=== PATIENT | male | born 1940 | race Caucasian/White ===

== ENCOUNTER 2016-10-14 11:08 | Emergency (ER) | payer OTHER ==
[2016-10-14 11:18] VITALS: TEMP 97.6; BMI 28.1
--- NOTE | 2016-10-14 11:52 | PDOC ---
History of Present Illness <Josiah Ortiz - Last Filed: 10/14/16 14:43> - General History Source: Patient Exam Limitations: No Limitations - History of Present Illness Initial Comments: 10/14/16 12:30 The patient is a 76 year old, Kazakh speaking, male with a significant past medical history of hypertension, chronic AFib, pacemaker, [place], CVA x2 (most recently 2013), Hep C w/ cirrhosis, and thrombocytopenia, presenting to the Emergency Department with neck pain for 3 days. The patient describes his neck pain as radiating to his shoulders, back, and around his neck. He admits to taking tylenol for the pain with little relief. The patient denies any change in activity, heavy lifting, or work such as yard work. The patient denies any bad sleeping positions. The patient denies lower back pain. Patient denies headache, or dizziness. Patient denies nausea, vomiting, and diarrhea. Patient denies cough, fever, and chills. PCP: Dr. Demi Chu Past Medical Hx: colon cancer, history of intracranial bleed and GI bleed Surgical Hx: colon resection <Gloria Chacko - Last Filed: 10/14/16 16:49> - General Chief Complaint: Pain Stated Complaint: NECK PAIN Time Seen by Provider: 10/14/16 11:51 Past History - Past Medical History Anemia: No Asthma: No Cancer: Yes (Colon, colon resection) Cardiac Disorders: Yes (AK, PPM, cad) CVA: Yes (x2 last one 2013) COPD: No HTN: Yes Liver Disease: Yes (HEP C, CIRRHOSIS) - Surgical History Abdominal Surgery: Yes (mass removed 1995 abdomen,colon) Cardiac Surgery: Yes (pacemaker) - Psycho/Social/Smoking Cessation Hx Anxiety: No Suicidal Ideation: No Smoking History: Never smoked Have you smoked in the past 12 months: No Information on smoking cessation initiated: No Hx Alcohol Use: No Drug/Substance Use Hx: No Substance Use Type: None Hx Substance Use Treatment: No <Josiah Ortiz - Last Filed: 10/14/16 14:43> <Gloria Chacko - Last Filed: 10/14/16 16:49> - Past Medical History Allergies/Adverse Reactions: Allergies Allergy/AdvReac Type Severity Reaction Status Date / Time No Known Allergies Allergy Verified 10/14/16 11:10 Home Medications: Ambulatory Orders Ferrous Sulfate [Ferosul] 325 mg PO DAILY 09/05/15 Losartan Potassium 25 mg PO DAILY 09/05/15 Quetiapine Fumarate [Seroquel -] 25 mg PO HS 09/05/15 Atorvastatin Ca [Lipitor] 20 mg PO HS #0 06/23/16 Isosorbide Mononitrate [Imdur -] 30 mg PO DAILY #30 tab.sr.24h 06/23/16 Metoprolol Succinate [Toprol XL -] 100 mg PO DAILY #30 tab.sr.24h 06/23/16 Cyclobenzaprine HCl [Flexeril 10 mg] 10 mg PO TID PRN #30 tablet 10/14/16 Furosemide 20 mg PO DAILY 10/14/16 Tramadol HCl [Ultram] 50 mg PO Q6H #40 tablet MDD 4 10/14/16 Review of Systems - Review of Systems Able to Perform ROS?: Yes Comments:: 10/14/16 12:30 GENERAL/CONSTITUTIONAL: No fever or chills. No weakness. HEAD, EYES, EARS, NOSE AND THROAT: No change in vision. No ear pain or discharge. No sore throat. CARDIOVASCULAR: No chest pain or shortness of breath. RESPIRATORY: No cough, wheezing, or hemoptysis. GASTROINTESTINAL: No nausea, vomiting, diarrhea or constipation. GENITOURINARY: No dysuria, frequency, or change in urination. MUSCULOSKELETAL: + neck pain radiating to shoulders and back. No joint swelling. No back pain. SKIN: No rash NEUROLOGIC: No headache, vertigo, loss of consciousness, or change in strength/ sensation. ENDOCRINE: No increased thirst. No abnormal weight change. HEMATOLOGIC/LYMPHATIC: No anemia, easy bleeding, or history of blood clots. ALLERGIC/IMMUNOLOGIC: No hives or skin allergy. <Gloria Chacko - Last Filed: 10/14/16 16:49> *Physical Exam - Vital Signs Last Vital Signs Temp Pulse Resp BP Pulse Ox 97.6 F 60 18 135/74 100 10/14/16 11:10 10/14/16 11:10 10/14/16 11:10 10/14/16 11:10 10/14/16 11:10 <Josiah Ortiz - Last Filed: 10/14/16 14:43> - Vital Signs Last Vital Signs Temp Pulse Resp BP Pulse Ox 97.6 F 60 18 135/74 100 10/14/16 11:10 10/14/16 11:10 10/14/16 11:10 10/14/16 11:10 10/14/16 11:10 - Physical Exam Comments: 10/14/16 12:30 GENERAL: Awake, alert, and fully oriented, in no acute distress HEAD: No signs of trauma EYES: PERRLA, EOMI, sclera anicteric, conjunctiva clear ENT: Auricles normal inspection, hearing grossly normal, nares patent, oropharynx clear without exudates. Moist mucosa NECK: Tender through trapezius musculature and paraspinal musculature bilaterally. Increased pain when turning neck to right. Normal ROM, supple, no lymphadenopathy, JVD, or masses LUNGS: Breath sounds equal, clear to auscultation bilaterally. No wheezes, and no crackles HEART: Regular rate and rhythm, normal S1 and S2, no murmurs, rubs or gallops ABDOMEN: Soft, nontender, normoactive bowel sounds. No guarding, no rebound. No masses EXTREMITIES: Normal range of motion, no edema. No clubbing or cyanosis. No cords, erythema, or tenderness NEUROLOGICAL: Cranial nerves II through XII grossly intact. Normal speech, normal gait SKIN: Warm, Dry, normal turgor, no rashes or lesions noted. <Gloria Chacko - Last Filed: 10/14/16 16:49> ED Treatment Course - LABORATORY CBC & Chemistry Diagram: 10/14/16 12:30 10/14/16 12:30 <Josiah Ortiz - Last Filed: 10/14/16 14:43> - LABORATORY CBC & Chemistry Diagram: 10/14/16 12:30 10/14/16 12:30 - RADIOLOGY Radiograph Interpretation: 10/14/16 14:48 Chest XRay As reviewed by Dr. Brian Alejandre 8mm nodule overlying the right eighth rib which could represent a nipple shadow or nodule. Correlation with nipple markers is suggested or CT. Left-sided pacemaker. No acute intrathoracic abnormality seen. C-Spine XRay As reviewed by Dr. Brian Alejandre Cervical straightening and diffuse spondylosis. Anterior slippage of C6. Overall appearance appears similar to prior study. 10/14/16 16:46 Second Chest XRay with nipple markers was done. Results of both XRays were printed out and handed to the patient's daughter who speaks Tu[place]. Results were explained. Patient will see his doctor tomorrow for a CT for clarification. <Gloria Chacko - Last Filed: 10/14/16 16:49> *DC/Admit/Observation/Transfer - Discharge Dispostion Admit: No - Attestations Physician Attestion: 10/14/16 11:51 I, Dr. Josiah Ortiz, attest that this document has been prepared under my direction and personally reviewed by me in its entirety. I further attest, that it accurately reflects all work, treatment, procedures and medical decision -making performed by me. <Josiah Ortiz - Last Filed: 10/14/16 14:43> - Attestations Scribe Attestion: 10/14/16 12:31 Documentation prepared by Gloria Chacko, acting as medical office technologist for Josiah Ortiz DO. <Gloria Chacko - Last Filed: 10/14/16 16:49> Diagnosis at time of Disposition: DJD (degenerative joint disease) of cervical spine Qualifiers: Spinal osteoarthritis complication: without myelopathy or radiculopathy Qualified Code(s): M47.812 - Spondylosis without myelopathy or radiculopathy, cervical region - Discharge Dispostion Condition at time of disposition: Good - Prescriptions Prescriptions: Cyclobenzaprine HCl [Flexeril 10 mg] 10 mg PO TID PRN #30 tablet PRN Reason: Muscle Spasms Tramadol HCl [Ultram] 50 mg PO Q6H #40 tablet MDD 4 - Patient Instructions Printed Discharge Instructions: DI for Osteoarthritis
[2016-10-14] MEDS ORDERED: traMADol HCL 50 MG TABLET PO ONE (12:07)
[2016-10-14] MEDS ORDERED: CYCLOBENZAPRINE HCL 10 MG TABLET (FP) PO ONE (12:07)
[2016-10-14] MEDS ORDERED: CYCLOBENZAPRINE HCL 10 MG TABLET (FP) ONE (12:16)
[2016-10-14] MEDS ORDERED: traMADol HCL 50 MG TABLET ONE (12:17)
[2016-10-14 12:42] LABS: EOSINOPHIL 2.6 % (0-4.5); MCH 27.1 pg (25.7-33.7); MCHC 32.2 g/dl (32.0-35.9); MEAN PLT VOLUME 10.7 fl (7.5-11.1); NEUTROPHILS 59.6 % (42.8-82.8); PLATELET COUNT 68 K/MM3 (134-434); RDW 14.3 % (11.9-15.9); WHITE BLOOD COUNT 4.7 K/mm3 (4.0-10.0)
[2016-10-14 13:02] LABS: INR 1.18 (0.82-1.09)
[2016-10-14 13:05] LABS: ANION GAP 6 (8-16); BILIRUBIN,TOTAL 0.6 mg/dL (0.2-1.0); CALCIUM 9.6 mg/dL (8.5-10.1); CO2 26 mmol/L (21-32); CREATININE 1.2 mg/dL (0.7-1.3); GLUCOSE,RANDOM 90 mg/dL (74-106); SGOT/AST 26 U/L (15-37); SGPT/ALT 27 U/L (12-78); TOT PROT 8.2 g/dl (6.4-8.2)
[2016-10-14 13:07] LABS: ALK PHOS 67 U/L (45-117); TROPONIN I 0.02 ng/ml (0.00-0.05)
[2016-10-14 15:03] VITALS: BP 130/70; PULSE 80
--- NOTE | 2016-10-14 15:48 | EKG ---
Test Reason : Blood Pressure : / mmHG Vent. Rate : 060 BPM Atrial Rate : 058 BPM P-R Int : 000 ms QRS Dur : 192 ms QT Int : 502 ms P-R-T Axes : 000 -84 096 degrees QTc Int : 502 ms Ventricular-paced rhythm ABNORMAL ECG WHEN COMPARED WITH ECG OF 21-JUN-2016 09:34, PREMATURE VENTRICULAR COMPLEXES ARE NO LONGER PRESENT Confirmed by TWIN MARCOS MD ([id number]) on 10/14/2016 3:47:49 PM Referred By: Confirmed By:TWIN MARCOS MD
== END 2016-10-14 17:05 | disposition home or self-care (01) ==
LOC: JER 11:08
DX: M47.812 Spondylosis without myelopathy or radiculopathy, cervical region (principal); I25.2 Old myocardial infarction; I10 Essential (primary) hypertension; I48.2 Chronic atrial fibrillation; Z79.01 Long term (current) use of anticoagulants; B19.20 Unspecified viral hepatitis C without hepatic coma; K74.60 Unspecified cirrhosis of liver; Z86.73 Personal history of transient ischemic attack (TIA), and cerebral infarction without residual deficits; Z85.038 Personal history of other malignant neoplasm of large intestine
CPT/HCPCS: 36415; 71010-TC; 71020-TC; 72050-TC; 80053; 82550; 82553; 84484; 85025; 85610; 93005; 93010; 99281-25

== ENCOUNTER 2018-11-22 12:59 | Observation (INO) | payer MEDICARE, OTHER ==
[2018-11-22 13:15] VITALS: BMI 31.1
--- NOTE | 2018-11-22 13:30 | PDOC ---
History of Present Illness - General Chief Complaint: Chest Pain Stated Complaint: CHEST PAIN / X12 HOURS Time Seen by Provider: 11/22/18 13:29 - History of Present Illness Initial Comments: 11/22/18 14:29 Interview performed with assist from diplomatic interpreter/translator ID [id number] 78 y/o [place]an only speaking M with pmh HTN, Afib s/p pacemaker, ND s/p stents x2, CVA x2 (last in 2013), HepC with cirrhosis, thrombocytopenia, colon cancer s /p resection presenting with chest pain with radiation to the BL neck and with headache since last night. He reports having baseline neck and back pain, however, last night it worsened and is involving his chest and head. He hasnt tried any medications for the pain. It came on randomly and was not associated with any recent activity or exercise and does impact mobility or functionality. His chest pain lasts less than 5 minutes and has been occurring every 1-2hrs. He reports its also present when he walked around home since last night. He denies any change in vision, change in mental status, tinnitus, LH, dizziness, SOB, nausea, emesis, diaphoresis, abd pain. PMH: as above ROS: as above All: NKDA PCP: Dr. Demi Chu Track And Field Coach: Dr Phan from [facility] Past History - Past Medical History Allergies/Adverse Reactions: Allergies Allergy/AdvReac Type Severity Reaction Status Date / Time No Known Allergies Allergy Verified 10/14/16 11:10 Home Medications: Ambulatory Orders Amlodipine Besylate [Norvasc -] 10 mg PO DAILY 11/22/18 Aspirin [Aspirin EC] 81 mg PO DAILY 11/22/18 Atorvastatin Ca [Lipitor] 20 mg PO HS 11/22/18 Ergocalciferol (Vitamin D2) [Vitamin D2] 1.25 mg PO WEEKLY 11/22/18 Furosemide [Lasix -] 20 mg PO DAILY 11/22/18 Isosorbide Mononitrate [Imdur -] 30 mg PO DAILY 11/22/18 Losartan Potassium [Cozaar -] 25 mg PO DAILY 11/22/18 Metoprolol Succinate [Toprol Xl] 100 mg PO DAILY 11/22/18 Anemia: No Asthma: No Cancer: Yes (Colon, colon resection) Cardiac Disorders: Yes (ND, PPM, cad) CVA: Yes (x2 last one 2013) COPD: No HTN: Yes Liver Disease: Yes (HEP C, CIRRHOSIS) - Surgical History Abdominal Surgery: Yes (mass removed 1995 abdomen,colon) Cardiac Surgery: Yes (pacemaker) - Immunization History Immunization Up to Date: No - Suicide/Smoking/Psychosocial Hx Smoking History: Never smoked Have you smoked in the past 12 months: No Information on smoking cessation initiated: No Hx Alcohol Use: No Drug/Substance Use Hx: No Substance Use Type: None Hx Substance Use Treatment: No Review of Systems - Review of Systems Comments:: 11/22/18 14:47 GENERAL/CONSTITUTIONAL: No fever or chills. No weakness. HEAD, EYES, EARS, NOSE AND THROAT: No change in vision. No ear pain or discharge. No sore throat. CARDIOVASCULAR: +chest pain. No shortness of breath RESPIRATORY: No cough, wheezing, or hemoptysis. GASTROINTESTINAL: No nausea, vomiting, diarrhea or constipation. GENITOURINARY: +frequency. no or change in urination. MUSCULOSKELETAL: +neck and back pain. SKIN: No rash NEUROLOGIC: No headache, vertigo, loss of consciousness, or change in strength/ sensation. ENDOCRINE: No increased thirst. No abnormal weight change HEMATOLOGIC/LYMPHATIC: No anemia, easy bleeding, or history of blood clots. ALLERGIC/IMMUNOLOGIC: No hives or skin allergy. *Physical Exam - Vital Signs Last Vital Signs Temp Pulse Resp BP Pulse Ox 97.8 F 60 16 96/54 L 98 11/22/18 13:13 11/22/18 13:13 11/22/18 13:13 11/22/18 13:13 11/22/18 13:13 - Physical Exam Comments: 11/22/18 14:49 GENERAL: Awake, alert, and fully oriented, in no acute distress HEAD: No signs of trauma, normocephalic, atraumatic EYES: EOMI, sclera anicteric, conjunctiva clear ENT: Auricles normal inspection, hearing grossly normal, nares patent, oropharynx clear without exudates. Moist mucosa NECK: Normal ROM, supple, no lymphadenopathy, JVD, or masses. No tenderness or deformities LUNGS: No distress, speaks full sentences, clear to auscultation bilaterally HEART: Regular rate and rhythm, normal S1 and S2, no murmurs, rubs or gallops, peripheral pulses normal and equal bilaterally. ABDOMEN: Soft, nontender, normoactive bowel sounds. No guarding, no rebound. No masses EXTREMITIES : Normal inspection, Normal range of motion, no edema. No clubbing or cyanosis. NEUROLOGICAL: Cranial nerves II through XII grossly intact. Normal speech, normal gait, no focal sensorimotor deficits SKIN: Warm, Dry, normal turgor, no rashes or lesions noted ED Treatment Course - LABORATORY CBC & Chemistry Diagram: 11/22/18 14:39 11/22/18 14:39 Medical Decision Making - Medical Decision Making 11/22/18 14:51 78 y/o [place]an only speaking M with pmh HTN, Afib s/p pacemaker, ND s/p stents x2, CVA x2 (last in 2013), HepC with cirrhosis, thrombocytopenia, colon cancer s /p resection presenting with chest pain with radiation to the BL neck and with headache since last night. Vitals notable for BP 96/54 and HR60. 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 for admission for tele obs 11/22/18 18:[address] Dickerson *DC/Admit/Observation/Transfer Diagnosis at time of Disposition: Chest pain Qualifiers: Chest pain type: unspecified Qualified Code(s): R07.9 - Chest pain, unspecified - Discharge Dispostion Condition at time of disposition: Stable Decision to Admit order: Yes - Referrals - Patient Instructions - Post Discharge Activity
--- NOTE | 2018-11-22 14:25 | EKG ---
Test Reason : Blood Pressure : / mmHG Vent. Rate : 060 BPM Atrial Rate : 416 BPM P-R Int : 000 ms QRS Dur : 190 ms QT Int : 490 ms P-R-T Axes : 000 -83 095 degrees QTc Int : 490 ms Ventricular-paced rhythm ABNORMAL ECG WHEN COMPARED WITH ECG OF 14-OCT-2016 13:16, NO SIGNIFICANT CHANGE WAS FOUND Confirmed by CHRISTY VASQUEZ MD ([id number]) on 11/22/2018 2:24:42 PM Referred By: Confirmed By:CHRISTY VASQUEZ MD
[2018-11-22] MEDS ORDERED: SODIUM CHLORIDE 500 ML IV STA (14:26)
[2018-11-22] MEDS ORDERED: ASPIRIN 325 MG TABLET PO ONE (14:26)
--- NOTE | 2018-11-22 14:36 | PDOC ---
Documentation entered by Jd Johnson SCRIBE, acting as scribe for Jordyn Reveles MD. Jordyn Reveles MD: This documentation has been prepared by the Alex luna Joel, SCRIBE, under my direction and personally reviewed by me in its entirety. I confirm that the documentation accurately reflects all work, treatment, procedures, and medical decision making performed by me. Attending Attestation - Resident Resident Name: Juanjo Plascencia - ED Attending Attestation I have performed the following: I have examined & evaluated the patient, The case was reviewed & discussed with the resident, I agree w/resident's findings & plan - HPI HPI: 11/22/18 14:17 The patient is an 78 year old male with a significant PMH of CAD, [place] (s/p stents 2x), CVA 2x, HTN, Afib, hepatitis C, cirrhosis, and colon CA who presents to the emergency department for evaluation of chest pain since last night. The patient states he is unable to characterize his chest pain but notes it is aggravated by walking and associated with bilateral trapezius pain that radiates into the occipital region and neck. The patients family state the patient has neck pain and back pain at baseline, which has worsened since last night, prompting his visit. Allergies: None Past Medical History: as documented in EMR/HPI Social history: Lives with family. No tobacco, ETOH or drug use. Surgical history: Colonic mass removal. PPM placement. Meds: as documented in EMR PMD: Dr. Butterfield 11/22/18 15:58 - Physicial Exam PE: 11/22/18 15:58 Agree with the resident's HPI and PE as documented in the electronic medical record. NAD, well appearing, EOMI, PERRL, MMM, nl conjunctiva, anicteric; neck supple. lungs clear, RRR, no murmur, abdomen soft nontender. Back nontender. CAMPOS x4, no focal neuro deficits. No peripheral edema. normal color for ethnicity, WWP. no calf tenderness - Medical Decision Making 11/22/18 14:33 See HPI for details. Prior notes reviewed, including admissions, discharges and consultations. Vital signs reviewed, wnl. soft BP, will give IVF and recheck Vital Signs Temp Pulse Resp BP Pulse Ox 97.8 F 60 16 96/54 L 98 11/22/18 13:13 11/22/18 13:13 11/22/18 13:13 11/22/18 13:13 11/22/18 13:13 DDx chest pain: ACS, coronary vasospasm, NSTEMI, arrhythmia, unstable angina, PE , dissection, PUD, esophageal spasm, GERD, gastritis, costochondritis, pneumonia , pleurisy, pericarditis/myocarditis. dehydration, electrolyte/metabolic derangements. laboratory results and imaging reviewed, basic labs and lytes wnl, CXR_ppm seen, no acute chest pathology Cardiac panel_neg, reassuring EKG LBBB, paced rhythm 60 ppm, wide QRS, ST and T wave segments and morphology normal. Nonspecific T wave abnormalities - appropriate discordance. no concordant changes or Sgarbossa's criteria. ED course -interventions: ASA, gentle fluids reassess repeat BP improved, normotensive admit tele for serial trop/EKG, r/o ACS and angina, medical management. 11/22/18 15:58 11/22/18 16:37 Heart Score/ECG Review #1 ECG reviewed & interpreted by me at: 13:15 General ECG Interpretation: Sinus Rhythm, Normal Rate Compared to previous ECG there are: No significant change 11/22/18 14:35 EKG LBBB, paced rhythm 60 ppm, wide QRS, ST and T wave segments and morphology normal. Nonspecific T wave abnormalities - appropriate discordance. no concordant changes or Sgarbossa's criteria.
[2018-11-22] MEDS ORDERED: ASPIRIN 325 MG TABLET ONE (14:51)
[2018-11-22 14:59] LABS: BASO % 1.2 % (0-2.0); EOS % 2.7 % (0-4.5); HEMATOCRIT 41.7 % (35.4-49); HEMOGLOBIN 13.6 GM/dL (11.7-16.9); LYMPH % 24.7 % (8-40); MCH 27.8 pg (25.7-33.7); MCHC 32.7 g/dl (32.0-35.9); MEAN CELL VOLUME 85.1 fl (80-96); MEAN PLT VOLUME 10.4 fl (7.5-11.1); MONO % 9.5 % (3.8-10.2); NEUT % 61.9 % (42.8-82.8); PLATELET COUNT 76 K/MM3 (134-434); RDW 14.4 % (11.9-15.9)
[2018-11-22 15:35] LABS: URINE APPEARANCE CLEAR; URINE BILIRUBIN NEGATIVE (NEGATIVE); URINE COLOR YELLOW; URINE GLUCOSE (UA) NEGATIVE (NEGATIVE); URINE KETONE NEGATIVE (NEGATIVE); URINE LEUK ESTERASE NEGATIVE (NEGATIVE); URINE NITRITE NEGATIVE (NEGATIVE); URINE PROTEIN NEGATIVE (NEGATIVE); URINE UROBILINOGEN 0.2 mg/dL (0.2-1.0)
[2018-11-22 16:01] LABS: ALBUMIN 3.9 g/dl (3.4-5.0); BILIRUBIN,TOTAL 0.7 mg/dL (0.2-1); BLOOD UREA NITROGEN 22.9 mg/dL (7-18); CALCIUM 9.6 mg/dL (8.5-10.1); CREATININE 1.3 mg/dL (0.55-1.3); TOT PROT 7.4 g/dl (6.4-8.2)
--- NOTE | 2018-11-22 16:51 | HP ---
Admitting History and Physical - Admission Chief Complaint: chest pain with palpitations with associated headache History Source: Patient, Family Member Limitations to Obtaining History: Language Barrier - Past Medical History [facility]: Yes: CVA (x 2 2013) Cardiovascular: Yes: HTN Gastrointestinal: Yes: Cancer (Colon cancer, in remission) Hepatobiliary: Yes: Cirrhosis, Hepatitis C (with cirrhosis) Heme/Onc: Yes: Thrombocytopenia, Other (History of colon cancer resected in 1994. No post op therapy) Rheumatology: Yes: Rheumatoid Arthritis - Past Surgical History Past Surgical History: Yes: Colectomy, Colonoscopy, Hernia Repair, Stent (x 2) - Smoking History Smoking history: Never smoked Have you smoked in the past 12 months: No - Alcohol/Substance Use Hx Alcohol Use: No History of Substance Use: reports: None - Social History ADL: Independent History of Recent Travel: No Home Medications - Allergies Allergies/Adverse Reactions: Allergies Allergy/AdvReac Type Severity Reaction Status Date / Time No Known Allergies Allergy Verified 10/14/16 11:10 - Home Medications Home Medications: Ambulatory Orders Amlodipine Besylate [Norvasc -] 10 mg PO DAILY 11/22/18 Aspirin [Aspirin EC] 81 mg PO DAILY 11/22/18 Atorvastatin Ca [Lipitor] 20 mg PO HS 11/22/18 Ergocalciferol (Vitamin D2) [Vitamin D2] 1.25 mg PO WEEKLY 11/22/18 Furosemide [Lasix -] 20 mg PO DAILY 11/22/18 Isosorbide Mononitrate [Imdur -] 30 mg PO DAILY 11/22/18 Losartan Potassium [Cozaar -] 25 mg PO DAILY 11/22/18 Metoprolol Succinate [Toprol Xl] 100 mg PO DAILY 11/22/18 Family Disease History - Family Disease History Family Disease History: Diabetes: Brother (HTN) Review of Systems - Review of Systems Constitutional: reports: No Symptoms Eyes: reports: No Symptoms HENT: reports: No Symptoms Neck: reports: Pain on Movement, Stiffness Cardiovascular: reports: Chest Pain, Palpitations Respiratory: reports: No Symptoms Gastrointestinal: reports: Abdominal Pain (lower abdomen, no N/V) Genitourinary: reports: Frequency Breasts: reports: No Symptoms Reported Musculoskeletal: reports: Back Pain Integumentary: reports: No Symptoms Neurological: reports: Headache (x 1 day) Endocrine: reports: No Symptoms Hematology/Lymphatic: reports: No Symptoms Psychiatric: reports: No Symptoms Physical Examination Vital Signs: Vital Signs Temperature 97.8 F 11/22/18 13:13 Pulse Rate 60 11/22/18 13:13 Respiratory Rate 16 11/22/18 13:13 Blood Pressure 96/54 L 11/22/18 13:13 O2 Sat by Pulse Oximetry (%) 98 11/22/18 13:13 Constitutional: Yes: Well Nourished, No Distress, Calm Eyes: Yes: WNL, Conjunctiva Clear, EOM Intact HENT: Yes: WNL, Atraumatic, Normocephalic Neck: Yes: WNL, Supple, Trachea Midline (point tenderness to cervical area) Cardiovascular: Yes: WNL, Regular Rate and Rhythm, Other (PPM to left chest wall ) Respiratory: Yes: WNL, Regular, CTA Bilaterally Gastrointestinal: Yes: WNL, Normal Bowel Sounds, Abdomen, Obese ...Rectal Exam: Yes: Deferred Renal/: Yes: WNL Breast(s): Yes: WNL Musculoskeletal: Yes: Back Pain Extremities: Yes: WNL Edema: No Peripheral Pulses WNL: Yes Integumentary: Yes: Laceration Neurological: Yes: WNL, Alert, Oriented ...Motor Strength: WNL Psychiatric: Yes: WNL, Alert, Oriented Labs: CBC, BMP 11/22/18 14:39 11/22/18 14:39 Imaging - Results Chest X-ray: Image Reviewed (CXR: PPM seen to right chest. atelectasis to left. cardiolmegaly) Problem List - Problems (1) Prophylactic measure Assessment/Plan: FEN no need for additional IVF monitor electrolytes maintain K>4, Mg >2.0 keep NPO tonight, cardiac diet when eating DVT heparin sq Dispo admit to tele bed full code discharge planning Code(s): Z29.9 - ENCOUNTER FOR PROPHYLACTIC MEASURES, UNSPECIFIED (2) Chest pain Code(s): R07.9 - CHEST PAIN, UNSPECIFIED Qualifiers: Chest pain type: unspecified Qualified Code(s): R07.9 - Chest pain, unspecified (3) Atrial fibrillation Code(s): I48.91 - UNSPECIFIED ATRIAL FIBRILLATION (4) CAD (coronary artery disease) Assessment/Plan: stents x 2 most likely YUSUF since not on anticoagulation Code(s): I25.10 - ATHSCL HEART DISEASE OF [place] CORONARY ARTERY W/O ANG PCTRS Qualifiers: Coronary Disease-Associated Artery/Lesion type: [place] artery [place] vs. transplanted heart: [place] heart Associated angina: without angina Qualified Code(s): I25.10 - Atherosclerotic heart disease of [place] coronary artery without angina pectoris (5) HTN (hypertension) Assessment/Plan: normotensive c/w home doses of metoprolol succinate and norvasc Code(s): I10 - ESSENTIAL (PRIMARY) HYPERTENSION Qualifiers: Hypertension type: essential hypertension Qualified Code(s): I10 - Essential (primary) hypertension (6) Hepatitis C Assessment/Plan: HCV cirrhosis Code(s): B19.20 - UNSPECIFIED VIRAL HEPATITIS C WITHOUT HEPATIC COMA (7) History of permanent cardiac pacemaker placement Assessment/Plan: PPM-patient monitored at home vie telephone on EKG V paced at 60 Code(s): Z95.0 - PRESENCE OF CARDIAC PACEMAKER (8) Myocardial infarction Assessment/Plan: s/p MA in 2013 chest pain resolvong troponin .02, serial continue to trend asa gven in ED c/w daily asa seen by Dr Sanford in past will consult in am Code(s): I21.3 - ST ELEVATION (STEMI) MYOCARDIAL INFARCTION OF UNSP SITE (9) Old myocardial infarction Code(s): I25.2 - OLD MYOCARDIAL INFARCTION (10) S/P coronary artery stent placement Code(s): Z95.5 - PRESENCE OF CORONARY ANGIOPLASTY IMPLANT AND GRAFT (11) Thrombocytopenia Assessment/Plan: Plt 76 continue to trend avoid thrombocytopenic reducing agents Code(s): D69.6 - THROMBOCYTOPENIA, UNSPECIFIED Visit type - Emergency Visit Emergency Visit: Yes ED Registration Date: 11/22/18 Care time: The patient presented to the Emergency Department on the above date and was hospitalized for further evaluation of their emergent condition. - New Patient This patient is new to me today: Yes Date on this admission: 11/22/18 - Critical Care Critical Care patient: No
[2018-11-22] MEDS ORDERED: ALBUTEROL SO4 2.5/IPRATROPIUM 0.5 INH SOL 3 ML VIAL.NEB. NEB ONE (21:48)
[2018-11-22] MEDS: ATORVASTATIN CA 20 MG TABLET (FP) PO SCH (22:22)
[2018-11-22] MEDS: HEPARIN NA (PORCINE) 5,000 UNITS/ML 1ML VIAL SQ SCH (22:22)
[2018-11-23] MEDS: HEPARIN NA (PORCINE) 5,000 UNITS/ML 1ML VIAL SQ SCH ×3 (05:25→21:21)
[2018-11-23 06:59] LABS: INR 1.19 (0.83-1.09); PROTHROMBIN TIME (PATIENT) 14.1 SEC (9.7-13.0)
[2018-11-23 07:01] LABS: EOS % 3.5 % (0-4.5); HEMOGLOBIN 13.9 GM/dL (11.7-16.9); LYMPH % 36.9 % (8-40); MCH 27.9 pg (25.7-33.7); MEAN CELL VOLUME 84.7 fl (80-96); MEAN PLT VOLUME 11.1 fl (7.5-11.1); MONO % 9.5 % (3.8-10.2); NEUT % 48.1 % (42.8-82.8); PLATELET COUNT 68 K/MM3 (134-434); RBC 4.96 M/mm3 (4.00-5.60); RDW 14.4 % (11.9-15.9); WHITE BLOOD COUNT 3.3 K/mm3 (4.0-10.0)
[2018-11-23 07:01] LABS: ACTIVATED PTT 37.1 SECONDS (25.2-36.5)
[2018-11-23 07:04] LABS: ALBUMIN 3.7 g/dl (3.4-5.0); ALK PHOS 68 U/L (45-117); ANION GAP 7 MMOL/L (8-16); BILIRUBIN,TOTAL 0.9 mg/dL (0.2-1); BLOOD UREA NITROGEN 20.1 mg/dL (7-18); CALCIUM 9.4 mg/dL (8.5-10.1); CHLORIDE 108 mmol/L (98-107); CHOLESTEROL 121 mg/dL (50-200); CO2 26 mmol/L (21-32); CREATININE 1.2 mg/dL (0.55-1.3); GLUCOSE,RANDOM 103 mg/dL (74-106); HDL CHOLESTEROL 54 mg/dL (40-60); MAGNESIUM 2.1 mg/dL (1.8-2.4); N-TERMINAL BNP 4555.6 pg/ml (5-450); PHOSPHOROUS 2.7 mg/dL (2.5-4.9); POTASSIUM 4.2 mmol/L (3.5-5.1); SGOT/AST 18 U/L (15-37); SGPT/ALT 22 U/L (13-61); SODIUM 142 mmol/L (136-145); TOT PROT 7.4 g/dl (6.4-8.2); TRIGLYCERIDES 71 mg/dL (0-150)
[2018-11-23] MEDS ORDERED: FUROSEMIDE 20 MG TABLET (FP) PO SCH (10:00)
[2018-11-23] MEDS: amLODIPine BESYLATE 10 MG TABLET (FP) PO SCH (10:52)
[2018-11-23] MEDS: ISOSORBIDE MONONITRATE 30 MG TAB.SR.24H (FP) PO SCH (10:52)
[2018-11-23] MEDS: ASPIRIN COATED 81 MG TABLET.EC PO SCH (10:52)
[2018-11-23] MEDS: LOSARTAN POTASSIUM 25 MG TABLET PO SCH (10:52)
--- NOTE | 2018-11-23 12:28 | CON.CARD ---
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: CVA (x 2 2013) Cardio/Vascular: Yes: HTN Gastrointestinal: Yes: Cancer (Colon cancer, in remission) Hepatobiliary: Yes: Cirrhosis, Hepatitis C (with cirrhosis) Rheumatology: Yes: Rheumatoid Arthritis - Past Surgical History Past Surgical History: Yes: Colectomy, Colonoscopy, Hernia Repair, Stent (x 2) - Alcohol/Substance Use Hx Alcohol Use: No History of Substance Use: reports: None - Smoking History Smoking history: Never smoked Have you smoked in the past 12 months: No If you are a former smoker, when did you quit?: 30 years ago - Social History Usual Living Arrangement: With Spouse ADL: Independent History of Recent Travel: No Home Medications - Allergies Allergies/Adverse Reactions: Allergies Allergy/AdvReac Type Severity Reaction Status Date / Time No Known Allergies Allergy Verified 10/14/16 11:10 - Home Medications Home Medications: Ambulatory Orders Amlodipine Besylate [Norvasc -] 10 mg PO DAILY 11/22/18 Aspirin [Aspirin EC] 81 mg PO DAILY 11/22/18 Atorvastatin Ca [Lipitor] 20 mg PO HS 11/22/18 Ergocalciferol (Vitamin D2) [Vitamin D2] 1.25 mg PO WEEKLY 11/22/18 Furosemide [Lasix -] 20 mg PO DAILY 11/22/18 Isosorbide Mononitrate [Imdur -] 30 mg PO DAILY 11/22/18 Losartan Potassium [Cozaar -] 25 mg PO DAILY 11/22/18 Metoprolol Succinate [Toprol Xl] 100 mg PO DAILY 11/22/18 Family Disease History - Family Disease History Family Disease History: Diabetes: Brother (HTN) Vital Signs: Vital Signs Temperature 98.1 F 11/23/18 05:00 Pulse Rate 60 11/23/18 05:00 Respiratory Rate 20 11/23/18 05:00 Blood Pressure 120/78 11/23/18 05:00 O2 Sat by Pulse Oximetry (%) 97 11/22/18 21:00 - Other Data Labs, Other Data: CBC, BMP 11/23/18 06:02 11/23/18 06:02 INR, PTT INR 1.19 (0.83-1.09) H 11/23/18 06:00 Troponin, BNP 11/22/18 11/22/1819 14:39 20:30 06:02 Troponin I < 0.02 < 0.02 B-Natriuretic Peptide 4555.6 H Troponin, BNP 11/22/18 11/22/18 11/23/18 14:39 20:30 06:02 Troponin I < 0.02 < 0.02 B-Natriuretic Peptide 4555.6 H Problem List - Problems (1) Atypical chest pain Assessment/Plan: bandlike chest tightness (mderate) lasting hours for the past two days, related to "congestion" (increased cough; the discomfort increases each time he coughs). TNI < 0.02 x 2 Stress Persantine MIBI 08/2015: no ischemia. ECHO: normal LVEF. Recommend: Continue metoprolol ER. Continue rivaroxaban. F/u [facility] PPM interrogation. F/u repeat ECHO for LVEF. 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 Code(s): R07.89 - OTHER CHEST PAIN (2) History of CVA (cerebrovascular accident) Assessment/Plan: sequale : forgetfulness; family says he has no problems walking, but is "lazy". Code(s): Z86.73 - PRSNL HX OF TIA (TIA), AND CEREB INFRC W/O RESID DEFICITS
--- NOTE | 2018-11-23 16:59 | ECHO ---
Name: JOHN BELTRAN, DELMA Exam:Adult Echocardiogram Study Date: 11/23/2018 02:24 PM Age: 78 yrs Reason For Study: CHF PPM Height: 66 in Weight: 193 lb BSA: 2.0 m2 MMode/2D Measurements & Calculations IVSd: 1.2 cm Ao root diam: 3.5 cm LVIDd: 4.7 cm LA dimension: 4.7 cm LVIDs: 3.5 cm LVPWd: 1.2 cm EDV(Teich): 102.8 ml LVOT diam: 2.1 cm ESV(Teich): 50.8 ml LAV (MOD-bp): 126.0 ml Doppler Measurements & Calculations MV E max anthony: 74.5 cm/sec Ao V2 max: 109.1 cm/sec MV A max anthony: 17.8 cm/sec Ao max P.8 mmHg MV E/A: 4.2 Ao V2 mean: 81.1 cm/sec MV dec time: 0.21 sec Ao mean P.9 mmHg Ao V2 VTI: 24.8 cm ELLY(I,D): 2.0 cm2 AI P1/2t: 601.3 msec ELLY(V,D): 2.6 cm2 AI max anthony: 364.9 cm/sec LV V1 max P.6 mmHg AI max P.3 mmHg LV V1 mean P.0 mmHg AI dec slope: 177.7 cm/sec2 LV V1 max: 80.2 cm/sec LV V1 mean: 45.0 cm/sec LV V1 VTI: 13.8 cm MR max anthony: 390.1 cm/sec SV(LVOT): 49.4 ml MR max P.9 mmHg TR max anthony: 270.9 cm/sec Med Peak E' Anthony: 5.5 cm/sec TR max P.4 mmHg Med E/e': 13.5 Lat Peak E' Anthony: 8.2 cm/sec Lat E/e': 9.0 Procedure A complete two-dimensional transthoracic echocardiogram was performed (2D, M-mode, Doppler and color flow Doppler). Left Ventricle The left ventricular size, thickness and function are normal. The left ventricular ejection fraction is normal. Ejection Fraction = 55-60%. The left ventricular wall motion is normal. Right Ventricle The right ventricle is normal in size and function. There is a pacemaker lead in the right ventricle. Atria The left atrium is moderately dilated. The right atrium is moderately dilated. There is a catheter/pa cemaker lead seen in the right atrium. Mitral Valve There is moderate mitral regurgitation. Tricuspid Valve There is moderate tricuspid regurgitation. Right ventricular systolic pressure is normal. Aortic Valve No hemodynamically significant valvular aortic stenosis. Mild aortic regurgitation. Pulmonic Valve There is no pulmonic valvular regurgitation. Great Vessels The aortic root is normal size. Pericardium/Pleura There is no pericardial effusion. Interpretation Summary The left ventricular size, thickness and function are normal The right ventricle is normal in size and function. There is a pacemaker lead in the right ventricle. The left atrium is moderately dilated. The right atrium is moderately dilated. There is a pacemaker lead seen in the right atrium. There is moderate mitral regurgitation. There is moderate tricuspid regurgitation. Mild aortic regurgitation. MD Pramod Hayward 11/23/2018 04:59 PM
--- NOTE | 2018-11-23 17:29 | PN ---
Progress Note, Physician Chief Complaint: chest pain with palpitations with associated headache, now resolved History of Present Illness: 78 year old male with a significant PMH of CAD, [place] (s/p stents 2x), CVA 2x, HTN , Afib, hepatitis C, cirrhosis, and colon CA who presents to the ED for evaluation of chest pain x 24 hours The patient states he is unable to characterize his chest pain but notes it is aggravated by walking and associated with bilateral trapezius pain that radiates into the occipital region and neck. Sister stated that [facility] monitoring service called patient that patient was experiencing an "arrhythmia" and that prompted his visit - Current Medication List Current Medications: Active Medications Amlodipine Besylate (Norvasc -) 10 mg PO DAILY [facility] Last Admin: 11/23/18 10:52 Dose: 10 mg Aspirin (Ecotrin -) 81 mg PO DAILY [facility] Last Admin: 11/23/18 10:52 Dose: 81 mg Atorvastatin Calcium (Lipitor -) 20 mg PO HS [facility] Last Admin: 11/22/18 22:22 Dose: 20 mg Furosemide (Lasix -) 20 mg PO BID@0600,1400 [facility] Heparin Sodium (Porcine) (Heparin -) 5,000 unit SQ TID [facility] Last Admin: 11/23/18 05:25 Dose: 5,000 unit Isosorbide Mononitrate (Imdur -) 30 mg PO DAILY [facility] Last Admin: 11/23/18 10:52 Dose: 30 mg Losartan Potassium (Cozaar -) 25 mg PO DAILY [facility] Last Admin: 11/23/18 10:52 Dose: 25 mg Metoprolol Succinate (Toprol Xl -) 100 mg PO DAILY [facility] Last Admin: 11/23/18 10:52 Dose: 100 mg - Objective Vital Signs: Vital Signs Temperature 98.0 F 11/23/18 14:00 Pulse Rate 61 11/23/18 14:00 Respiratory Rate 18 11/23/18 14:00 Blood Pressure 136/73 11/23/18 14:00 O2 Sat by Pulse Oximetry (%) 99 11/23/18 09:00 Constitutional: Yes: Well Nourished, No Distress, Calm Eyes: Yes: WNL, Conjunctiva Clear, EOM Intact HENT: Yes: WNL, Atraumatic, Normocephalic Neck: Yes: WNL, Supple, Trachea Midline Cardiovascular: Yes: WNL, Regular Rate and Rhythm, Other (PPM noted to left chest wall) Respiratory: Yes: WNL, Regular, CTA Bilaterally Gastrointestinal: Yes: WNL, Normal Bowel Sounds, Soft ...Rectal Exam: Yes: Deferred Genitourinary: Yes: WNL Breast(s): Yes: WNL Musculoskeletal: Yes: Back Pain Extremities: Yes: WNL Edema: No Peripheral Pulses WNL: Yes Integumentary: Yes: Other (PPM palpated) Neurological: Yes: WNL, Alert, Oriented ...Motor Strength: WNL Psychiatric: Yes: WNL, Alert, Oriented Labs: CBC, BMP 11/23/18 06:02 11/23/18 06:02 INR, PTT INR 1.19 (0.83-1.09) H 11/23/18 06:00 - ....Imaging Chest X-ray: Image Reviewed (atelectasis to left. PPM seen) Problem List - Problems (1) Prophylactic measure Assessment/Plan: FEN no need for additional IVF monitor electrolytes maintain K>4, Mg >2.0 keep NPO tonight, cardiac diet when eating DVT heparin sq Dispo maintain as in patient to tele bed full code discharge planning Code(s): Z29.9 - ENCOUNTER FOR PROPHYLACTIC MEASURES, UNSPECIFIED (2) Chest pain Assessment/Plan: resolved Troponins negative x 2 EKG V Paced Code(s): R07.9 - CHEST PAIN, UNSPECIFIED Qualifiers: Chest pain type: unspecified Qualified Code(s): R07.9 - Chest pain, unspecified (3) Atrial fibrillation Assessment/Plan: maintain on telemetry, episodes of AF with abberency reveiwed on tele history c/w metoprolol c/w asa Code(s): I48.91 - UNSPECIFIED ATRIAL FIBRILLATION (4) CAD (coronary artery disease) Assessment/Plan: stents x 2 most likely YUSUF since not on anticoagulation C/W asa C/W Atorvastatin Code(s): I25.10 - ATHSCL HEART DISEASE OF [place] CORONARY ARTERY W/O ANG PCTRS Qualifiers: Coronary Disease-Associated Artery/Lesion type: [place] artery [place] vs. transplanted heart: [place] heart Associated angina: without angina Qualified Code(s): I25.10 - Atherosclerotic heart disease of [place] coronary artery without angina pectoris (5) HTN (hypertension) Assessment/Plan: normotensive c/w home doses of metoprolol succinate and norvasc Code(s): I10 - ESSENTIAL (PRIMARY) HYPERTENSION Qualifiers: Hypertension type: essential hypertension Qualified Code(s): I10 - Essential (primary) hypertension (6) Hepatitis C Assessment/Plan: HCV cirrhosis Code(s): B19.20 - UNSPECIFIED VIRAL HEPATITIS C WITHOUT HEPATIC COMA (7) History of permanent cardiac pacemaker placement Assessment/Plan: PPM-patient monitored at home via telephone on EKG V paced at [address] [facility] and episodes of NSVT, Dr Kirk notified maintain K>4.0 Mg >2.0 c/w telelmetry obs Code(s): Z95.0 - PRESENCE OF CARDIAC PACEMAKER (8) Myocardial infarction Assessment/Plan: s/p [place] in 2013 chest pain resolved troponin .02, no further need to trend c/w daily asa appreciate cardiology consultation TTE: moderate MR/TR, ef 55-60% Code(s): I21.3 - ST ELEVATION (STEMI) MYOCARDIAL INFARCTION OF [facility] SITE (9) Old myocardial infarction Code(s): I25.2 - OLD MYOCARDIAL INFARCTION (10) S/P coronary artery stent placement Code(s): Z95.5 - PRESENCE OF CORONARY ANGIOPLASTY IMPLANT AND GRAFT (11) Thrombocytopenia Assessment/Plan: Plt 68 continue to trend avoid thrombocytopenic reducing agents if continues to drop will consult Heme monitor for s/s bleeding Code(s): D69.6 - THROMBOCYTOPENIA, UNSPECIFIED Visit type - Emergency Visit Emergency Visit: Yes ED Registration Date: 11/22/18 Care time: The patient presented to the Emergency Department on the above date and was hospitalized for further evaluation of their emergent condition. - New Patient This patient is new to me today: No - Critical Care Critical Care patient: No - Discharge Referral Referred to [facility] Med P.C.: No
[2018-11-23] MEDS: FUROSEMIDE 20 MG TABLET (FP) PO SCH (19:10)
[2018-11-23] MEDS: ATORVASTATIN CA 20 MG TABLET (FP) PO SCH (21:21)
[2018-11-24] MEDS: FUROSEMIDE 20 MG TABLET (FP) PO SCH ×2 (06:06→13:31)
[2018-11-24] MEDS: HEPARIN NA (PORCINE) 5,000 UNITS/ML 1ML VIAL SQ SCH ×2 (06:06→13:31)
[2018-11-24 08:26] LABS: BASO % 0.9 % (0-2.0); EOS % 2.2 % (0-4.5); HEMATOCRIT 44.9 % (35.4-49); HEMOGLOBIN 14.8 GM/dL (11.7-16.9); LYMPH % 22.8 % (8-40); MCH 28.1 pg (25.7-33.7); MEAN CELL VOLUME 85.1 fl (80-96); MEAN PLT VOLUME 12.2 fl (7.5-11.1); MONO % 8.6 % (3.8-10.2); NEUT % 65.5 % (42.8-82.8); PLATELET COUNT 72 K/MM3 (134-434); RBC 5.28 M/mm3 (4.00-5.60); RDW 14.5 % (11.9-15.9); WHITE BLOOD COUNT 4.5 K/mm3 (4.0-10.0)
[2018-11-24] MEDS: LOSARTAN POTASSIUM 25 MG TABLET PO SCH (09:22)
[2018-11-24] MEDS: ISOSORBIDE MONONITRATE 30 MG TAB.SR.24H (FP) PO SCH (09:22)
[2018-11-24] MEDS: ASPIRIN COATED 81 MG TABLET.EC PO SCH (09:22)
[2018-11-24] MEDS: amLODIPine BESYLATE 10 MG TABLET (FP) PO SCH (09:22)
[2018-11-24 09:56] LABS: POTASSIUM 4.6 mmol/L (3.5-5.1)
[2018-11-24 10:23] LABS: BILIRUBIN,TOTAL 0.9 mg/dL (0.2-1); CALCIUM 9.9 mg/dL (8.5-10.1); CREATININE 1.2 mg/dL (0.55-1.3); MAGNESIUM 2.2 mg/dL (1.8-2.4); TOT PROT 7.6 g/dl (6.4-8.2)
[2018-11-24 15:49] VITALS: PULSE 60
--- NOTE | 2018-11-24 16:42 | DS ---
Physical Exam: 78 year old male with a significant PMH of CAD, [place] (s/p stents 2x), CVA 2x, HTN , Afib, hepatitis C, cirrhosis, and colon CA who presents to the ED for evaluation of chest pain x 24 hours The patient states he is unable to characterize his chest pain but notes it is aggravated by walking and associated with bilateral trapezius pain that radiates into the occipital region and neck. Sister stated that [facility] monitoring service called patient that patient was experiencing an "arrhythmia" and that prompted his visit SUBJECTIVE: Patient seen and examined. Still complains of a slight headache. Denies any other discomfort. OBJECTIVE: Vital Signs Period Temp Pulse Resp BP Sys/Rain Pulse Ox Last 24 Hr 97.7 F-98.8 F 59-64 18-20 110-137/62-82 97-97 PHYSICAL EXAM GENERAL: The patient is awake, alert, and fully oriented, in no acute distress. HEAD: Normal with no signs of trauma. EYES: PERRL, extraocular movements intact, sclera anicteric, conjunctiva clear. ENT: Ears normal, nares patent, oropharynx clear without exudates NECK: Trachea midline, full range of motion, supple. LUNGS: Breath sounds equal, clear to auscultation bilaterally, no wheezes, no crackles, no accessory muscle use. HEART: Regular rate and rhythm, S1, S2 without murmur, rub or gallop. ABDOMEN: Soft, nontender, nondistended, normoactive bowel sounds, no guarding, no rebound EXTREMITIES: 2+ pulses, warm, well-perfused, no edema. NEUROLOGICAL: Normal speech, gait not observed. PSYCH: Normal mood, normal affect. SKIN: Warm, dry, normal turgor, no rashes or lesions noted. LABS Laboratory Results - last 24 hr 11/24/18 11/24/18 06:10 06:10 WBC 4.5 RBC 5.28 Hgb 14.8 Hct 44.9 MCV 85.1 MCH 28.1 MCHC 33.0 RDW 14.5 Plt Count 72 L MPV 12.2 H Absolute Neuts (auto) 2.9 Neutrophils % 65.5 D Lymphocytes % 22.8 D Monocytes % 8.6 Eosinophils % 2.2 Basophils % 0.9 Nucleated RBC % 0 Sodium 140 Potassium 4.6 Chloride 104 Carbon Dioxide 28 Anion Gap 7 L BUN 19.0 H Creatinine 1.2 Est GFR (CKD-EPI)AfAm 65.79 Est GFR (CKD-EPI)NonAf 56.77 Random Glucose 93 Calcium 9.9 Magnesium 2.2 Total Bilirubin 0.9 AST 18 ALT 26 Alkaline Phosphatase 71 Total Protein 7.6 Albumin 4.0 HOSPITAL COURSE: Date of Admission:11/22/18 - ....Imaging Chest X-ray: Image Reviewed (atelectasis to left. PPM seen) Problem List - Problems (1) Prophylactic measure Assessment/Plan: FEN no need for additional IVF monitor electrolytes maintained K>4, Mg >2.0 cardiac diet maintained DVT heparin sq Dispo maintain as in patient to tele bed full code Code(s): Z29.9 - ENCOUNTER FOR PROPHYLACTIC MEASURES, UNSPECIFIED (2) Chest pain Assessment/Plan: resolved Troponins negative x 2 EKG V Paced Recommended Per [employer] Continue metoprolol ER. Continue rivaroxaban. F/u [facility] PPM interrogation. F/u repeat ECHO for LVEF. 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 Code(s): R07.89 - OTHER CHEST PAIN (3) Atrial fibrillation Assessment/Plan: maintain on telemetry, episodes of AF with abberency reveiwed on tele history Continue metoprolol after discharge Continue asa after discharge Code(s): I48.91 - UNSPECIFIED ATRIAL FIBRILLATION (4) CAD (coronary artery disease) Assessment/Plan: stents x 2 most likely YUSUF since not on anticoagulation - Continue Atorvastatin after discharge Code(s): I25.10 - ATHSCL HEART DISEASE OF [place] CORONARY ARTERY W/O ANG PCTRS Qualifiers: Coronary Disease-Associated Artery/Lesion type: [place] artery [place] vs. transplanted heart: [place] heart Associated angina: without angina Qualified Code(s): I25.10 - Atherosclerotic heart disease of [place] coronary artery without angina pectoris (5) HTN (hypertension) Assessment/Plan: normotensive Continue metoprolol and norvasc after discharge Code(s): I10 - ESSENTIAL (PRIMARY) HYPERTENSION Qualifiers: Hypertension type: essential hypertension Qualified Code(s): I10 - Essential (primary) hypertension (6) Hepatitis C Assessment/Plan: HCV cirrhosis Code(s): B19.20 - UNSPECIFIED VIRAL HEPATITIS C WITHOUT HEPATIC COMA (7) History of permanent cardiac pacemaker placement Assessment/Plan: PPM-patient monitored at home via telephone on EKG V paced at [address] [facility] and episodes of NSVT, Dr Kirk notified maintained K>4.0 Mg >2.0 Code(s): Z95.0 - PRESENCE OF CARDIAC PACEMAKER (8) Myocardial infarction Assessment/Plan: s/p [place] in 2013 chest pain resolved troponin .02, no further need to trend TTE: moderate MR/TR, ef 55-60% Code(s): I21.3 - ST [place] (STEMI) MYOCARDIAL INFARCTION OF [facility] SITE (9) Old myocardial infarction Code(s): I25.2 - OLD MYOCARDIAL INFARCTION (10) S/P coronary artery stent placement Code(s): Z95.5 - PRESENCE OF CORONARY ANGIOPLASTY IMPLANT AND GRAFT (11) Thrombocytopenia -Plt 68 -continue to trend -avoid thrombocytopenic reducing agents -if continues to drop will consult Heme No signs or symptoms of bleeding. Follow up with PCP Code(s): D69.6 - THROMBOCYTOPENIA, UNSPECIFIED Date of Discharge: 11/24/18 Minutes to complete discharge: 60 Discharge Summary Reason For Visit: CHEST PAIN Current Active Problems Atypical chest pain (Acute) Chest pain (Acute) History of CVA (cerebrovascular accident) (Acute) Prophylactic measure (Acute) Condition: Improved - Instructions Diet, Activity, Other Instructions: Follow up with [employer] at [facility] next week Referrals: Ainsley Mccormick MD [Primary Care Provider] - Disposition: HOME - Home Medications Comprehensive Discharge Medication List: Ambulatory Orders Amlodipine Besylate [Norvasc -] 10 mg PO DAILY 11/22/18 Aspirin [Aspirin EC] 81 mg PO DAILY 11/22/18 Atorvastatin Ca [Lipitor] 20 mg PO HS 11/22/18 Ergocalciferol (Vitamin D2) [Vitamin D2] 1.25 mg PO WEEKLY 11/22/18 Furosemide [Lasix -] 20 mg PO DAILY 11/22/18 Isosorbide Mononitrate [Imdur -] 30 mg PO DAILY 11/22/18 Losartan Potassium [Cozaar -] 25 mg PO DAILY 11/22/18 Metoprolol Succinate [Toprol Xl] 100 mg PO DAILY 11/22/18 This patient is new to me today: Yes Date on this admission: 11/24/18 Emergency Visit: Yes ED Registration Date: 11/22/18 Care time: The patient presented to the Emergency Department on the above date and was hospitalized for further evaluation of their emergent condition. Critical Care patient: No - Discharge Referral [facility]erred to [facility] No
[2018-11-24 20:18] VITALS: BP 123/75; TEMP 98
== END 2018-11-24 18:31 | disposition home or self-care (01) ==
LOC: JER 12:59 → JERBED 16:36 → J4W 18:26
PROVIDERS: ADMIT Internal Medicine; ATTEND Nurse Practitioner Acute Care
PROC: 3E0337Z Introduction of Electrolytic and Water Balance Substance into Peripheral Vein, Percutaneous Approach (ICD-10-PCS; principal; 2018-11-22)
PROC: 3E013GC Introduction of Other Therapeutic Substance into Subcutaneous Tissue, Percutaneous Approach (ICD-10-PCS; 2018-11-22)
PROC: 3E0F7GC Introduction of Other Therapeutic Substance into Respiratory Tract, Via Natural or Artificial Opening (ICD-10-PCS; 2018-11-22)
DX: R07.89 Other chest pain (principal); I10 Essential (primary) hypertension; I48.91 Unspecified atrial fibrillation; I25.2 Old myocardial infarction; I44.7 Left bundle-branch block, unspecified; Z95.0 Presence of cardiac pacemaker; Z95.5 Presence of coronary angioplasty implant and graft; Z86.73 Personal history of transient ischemic attack (TIA), and cerebral infarction without residual deficits; K74.60 Unspecified cirrhosis of liver; B18.2 Chronic viral hepatitis C; D64.9 Anemia, unspecified; Z85.038 Personal history of other malignant neoplasm of large intestine; Z79.82 Long term (current) use of aspirin; Z29.9 Encounter for prophylactic measures, unspecified
CPT/HCPCS: 36415; 71045-TC-FY; 80053; 80061; 81003; 82550; 82553; 83036; 83721; 83735; 83880; 84100; 84439; 84443; 84484; 85025; 85610; 85730; 87086; 93005; 93010; 93306-TC; 94640; 96360; 96372; 99282-25; G0378; J1644

== ENCOUNTER 2019-03-06 12:30 | Inpatient (IN) | payer MEDICARE, OTHER ==
--- NOTE | 2019-03-06 13:24 | PDOC ---
History of Present Illness - General Chief Complaint: Chest Pain Stated Complaint: CHEST PAIN Time Seen by Provider: 03/06/19 13:08 - History of Present Illness Initial Comments: 03/06/19 13:23 Mr. Sumit Hua is an 78 yo male w/ pmh of CAD, [place] (s/p stents x2), 2 prior CVAs, HTN, afib (ASA only for AC), hepatitis C, cirrhosis, and colon CA who presents for evaluation of 3 day history of "chest congestion." Patient reports he felt midsternal pain radiating to shoulders rock over this time period. Pain reports pain has improved and gotten worse intermittently although he cannot relate why. Patient reports this has been over the same time period as well. The patient denies chest pain, shortness of breath, headache and dizziness. Denies fever, chills, nausea, vomit, diarrhea and constipation. Denies dysuria, frequency, urgency and hematuria. Past History - Past Medical History Allergies/Adverse Reactions: Allergies Allergy/AdvReac Type Severity Reaction Status Date / Time No Known Allergies Allergy Verified 03/06/19 12:40 Home Medications: Ambulatory Orders Amlodipine Besylate [Norvasc -] 10 mg PO DAILY 11/22/18 Aspirin [Aspirin EC] 81 mg PO DAILY 11/22/18 Atorvastatin Ca [Lipitor] 20 mg PO HS 11/22/18 Ergocalciferol (Vitamin D2) [Vitamin D2] 1.25 mg PO WEEKLY 11/22/18 Furosemide [Lasix -] 20 mg PO DAILY 11/22/18 Isosorbide Mononitrate [Imdur -] 30 mg PO DAILY 11/22/18 Losartan Potassium [Cozaar -] 25 mg PO DAILY 11/22/18 Metoprolol Succinate [Toprol Xl] 100 mg PO DAILY 11/22/18 Anemia: No Asthma: No Cancer: Yes (Colon, colon resection) Cardiac Disorders: Yes ([place], PPM, cad) CVA: Yes (x2 last one 2013) COPD: No HTN: Yes Liver Disease: Yes (HEP C, CIRRHOSIS) - Surgical History Abdominal Surgery: Yes (mass removed 1995 abdomen,colon) Cardiac Surgery: Yes (pacemaker) - Immunization History Immunization Up to Date: No - Psycho Social/Smoking Cessation Hx Smoking History: Never smoked Have you smoked in the past 12 months: No If you are a former smoker, when did you quit?: 30 years ago Hx Alcohol Use: No Drug/Substance Use Hx: No Substance Use Type: None Hx Substance Use Treatment: No Review of Systems - Review of Systems Comments:: 03/06/19 13:24 GENERAL/CONSTITUTIONAL: No fever or chills. No weakness. HEAD, EYES, EARS, NOSE AND THROAT: No change in vision. No ear pain or discharge. No sore throat. CARDIOVASCULAR: +Chest pain oas described. No shortness of breath RESPIRATORY: No cough, wheezing, or hemoptysis. GASTROINTESTINAL: No nausea, vomiting, diarrhea or constipation. GENITOURINARY: No dysuria, frequency, or change in urination. MUSCULOSKELETAL: No joint or muscle swelling or pain. No neck or back pain. SKIN: No rash NEUROLOGIC: No headache, vertigo, loss of consciousness, or change in strength/ sensation. ENDOCRINE: No increased thirst. No abnormal weight change HEMATOLOGIC/LYMPHATIC: No anemia, easy bleeding, or history of blood clots. ALLERGIC/IMMUNOLOGIC: No hives or skin allergy. *Physical Exam - Vital Signs Last Vital Signs Temp Pulse Resp BP Pulse Ox 97.9 F 64 18 124/70 99 03/06/19 12:34 03/06/19 12:34 03/06/19 12:34 03/06/19 12:34 03/06/19 12:34 - Physical Exam Comments: 03/06/19 13:24 GENERAL: Awake, alert, and fully oriented, in no acute distress HEAD: No signs of trauma, normocephalic, atraumatic EYES: PERRLA, EOMI, sclera anicteric, conjunctiva clear ENT: Auricles normal inspection, hearing grossly normal, nares patent, oropharynx clear without exudates. Moist mucosa NECK: Normal ROM, supple, no lymphadenopathy, JVD, or masses LUNGS: No distress, speaks full sentences, clear to auscultation bilaterally HEART: Regular rate and rhythm, normal S1 and S2, no murmurs, rubs or gallops, peripheral pulses normal and equal bilaterally. ABDOMEN: +RUQ TTP. Soft, normoactive bowel sounds. No guarding, no rebound. No masses EXTREMITIES: +1+ pedal edema appreciated ROCK. Otherwise normal inspection, normal range of motion, no edema. No clubbing or cyanosis. NEUROLOGICAL: Cranial nerves II through XII grossly intact. Normal speech, normal gait, no focal sensorimotor deficits SKIN: Warm, Dry, normal turgor, no rashes or lesions noted. Heart Score/ECG Review - History History: Moderately suspicious - Electrocardiogram EKG: Non specific repolarization disturbance - Age Age: >/= 65 - Risk Factors Risk Factors Heart Score: Yes Hx Hypercholesterolemia, Yes Hx Hypertension, Yes Hx Diabetes Based on the list above the patient has:: 1-2 risk factors - Troponin Troponin: </= normal limit - Score Heart Score - Total: 5 ED Treatment Course - LABORATORY CBC & Chemistry Diagram: 03/06/19 14:07 03/06/19 14:07 Medical Decision Making - Medical Decision Making 03/06/19 15:21 Mr. Arana is an 78 yo male w/ pmh as described who presents for evaluation of chest pain concerning for hypervolemia vs. ACS vs. pulmonary process. Patient will be evaluated with cardiac labs as well as EKG and CXR for further evaluation. Patient also reporting RUQ abdominal pain; evaluated w/ bedside US which was negative for acute process. 03/06/19 15:53 Patient significant as below for hypervolemia w/ BNP elevated above patient's baseline. Patient CXR confirms fluid overload. Patient recent echo from 11/23/18 shows EF 55-60% and moderate mitral, atrial, and tricuspid valve regurg. Patient will be admitted for diuresis and cardiology evaluation over concern for possible worsening valve status. 03/06/19 16:13 Patient admitted for further evaluation to hospitalist team. Laboratory Results - last 24 hr 03/06/19 03/06/19 03/06/19 14:07 14:07 14:07 WBC 4.6 RBC 4.65 Hgb 12.8 Hct 39.7 MCV 85.4 MCH 27.5 MCHC 32.3 RDW 15.6 Plt Count 63 L MPV 10.7 D Absolute Neuts (auto) 3.2 Neutrophils % 69.6 Lymphocytes % 17.2 D Monocytes % 9.5 Eosinophils % 2.5 Basophils % 1.2 Nucleated RBC % 0 PT with INR INR PTT (Actin FS) Sodium 141 Potassium 4.1 Chloride 113 H Carbon Dioxide 25 Anion Gap 3 L BUN 26.6 H Creatinine 1.1 Est GFR (CKD-EPI)AfAm 73.09 Est GFR (CKD-EPI)NonAf 63.07 Random Glucose 94 Calcium 9.5 Magnesium 2.1 Total Bilirubin 0.9 AST 42 H ALT 67 H Alkaline Phosphatase 164 H Creatine Kinase 146 Troponin I 0.03 B-Natriuretic Peptide Total Protein 7.2 Albumin 3.7 03/06/19 03/06/19 14:07 14:07 WBC RBC Hgb Hct MCV MCH MCHC RDW Plt Count MPV Absolute Neuts (auto) Neutrophils % Lymphocytes % Monocytes % Eosinophils % Basophils % Nucleated RBC % PT with INR 13.80 H INR 1.17 H PTT (Actin FS) 30.6 Sodium Potassium Chloride Carbon Dioxide Anion Gap BUN Creatinine Est GFR (CKD-EPI)AfAm Est GFR (CKD-EPI)NonAf Random Glucose Calcium Magnesium Total Bilirubin AST ALT Alkaline Phosphatase Creatine Kinase Troponin I B-Natriuretic Peptide 7748.6 H Total Protein Albumin Discharge - Discharge Information Problems reviewed: Yes Clinical Impression/Diagnosis: Chest pain Qualifiers: Chest pain type: unspecified Qualified Code(s): R07.9 - Chest pain, unspecified Hypervolemia Qualifiers: Hypervolemia type: unspecified Qualified Code(s): E87.70 - Fluid overload, unspecified - Admission Yes - Follow up/Referral - Patient Discharge Instructions - Post Discharge Activity
[2019-03-06 14:36] LABS: BASO % 1.2 % (0-2.0); EOS % 2.5 % (0-4.5); HEMATOCRIT 39.7 % (35.4-49); HEMOGLOBIN 12.8 GM/dL (11.7-16.9); LYMPH % 17.2 % (8-40); MCH 27.5 pg (25.7-33.7); MCHC 32.3 g/dl (32.0-35.9); MEAN CELL VOLUME 85.4 fl (80-96); MEAN PLT VOLUME 10.7 fl (7.5-11.1); MONO % 9.5 % (3.8-10.2); NEUT % 69.6 % (42.8-82.8); PLATELET COUNT 63 K/MM3 (134-434); RBC 4.65 M/mm3 (4.00-5.60); RDW 15.6 % (11.9-15.9); WHITE BLOOD COUNT 4.6 K/mm3 (4.0-10.0)
[2019-03-06 14:45] LABS: INR 1.17 (0.83-1.09); PROTHROMBIN TIME (PATIENT) 13.8 SEC (9.7-13.0)
[2019-03-06 14:48] LABS: ACTIVATED PTT 30.6 SECONDS (25.2-36.5)
[2019-03-06 15:04] LABS: ALBUMIN 3.7 g/dl (3.4-5.0); BILIRUBIN,TOTAL 0.9 mg/dL (0.2-1); BLOOD UREA NITROGEN 26.6 mg/dL (7-18); CALCIUM 9.5 mg/dL (8.5-10.1); CREATININE 1.1 mg/dL (0.55-1.3); POTASSIUM 4.1 mmol/L (3.5-5.1); TOT PROT 7.2 g/dl (6.4-8.2)
--- NOTE | 2019-03-06 15:39 | PDOC ---
Documentation entered by Iva Limon SCRIBE, acting as scribe for Bernabe Valdez MD. Bernabe Valdez MD: This documentation has been prepared by the Braxton luna Xhesika, SCRIBE, under my direction and personally reviewed by me in its entirety. I confirm that the documentation accurately reflects all work, treatment, procedures, and medical decision making performed by me. Attending Attestation - Resident Resident Name: Leo Winter (\) - ED Attending Attestation I have performed the following: I have examined & evaluated the patient, The case was reviewed & discussed with the resident, I agree w/resident's findings & plan, Exceptions are as noted - HPI HPI: 03/06/19 14:50 The patient is an 78 year old male with a significant PMH of CAD, [place] (s/p stents x2), 2 prior CVAs, HTN, afib (ASA only for AC), hepatitis C, cirrhosis, and colon CA who presents to the emergency department for 3 days of chest congestion and left-sided rib pain. The patient is a poor historian, however, describes the chest pain as midsternal radiating to his b/l shoulders. Patient also reports RUQ pain. states that he did not complain of pain until today. did note that he has some mild cough and cmplaint of sob this morning when wakening The patient denies shortness of breath, headache and dizziness. Denies fever, chills, cough, nausea, vomiting, diarrhea and constipation. Denies dysuria, frequency, urgency and hematuria. Allergies: NKDA surgical hx: pacemaker - Physicial Exam PE: 03/06/19 14:52 GENERAL: The patient is awake, alert, oriented x2, no acute distress HEAD: Normocephalic, atraumatic. EYES: extraocular movements intact, sclera anicteric, conjunctiva clear. ENT: Normal voice, Moist mucous membranes. NECK: Normal range of motion, supple without lymphadenopathy, JVD, or masses. LUNGS: Breath sounds equal, clear to auscultation bilaterally. No wheezes, no crackles, no rales. HEART: Regular rate and rhythm, normal S1 and S2 without murmur, rub or gallop. ABDOMEN: Soft, nontender, normoactive bowel sounds. No guarding, no rebound. No masses. EXTREMITIES: Normal range of motion, trace pitting edema, no calf tenderness, negative Homans NEUROLOGICAL: No facial asymmetry, Normal speech, normal gait. PSYCH: Normal mood, normal affect. SKIN: Warm, Dry, normal turgor, no rashes or lesions noted. - Medical Decision Making 03/06/19 14:56 Differential for the patient's symptoms includes possible ACS considered pneumonia, heart failure or viral syndrome Will obtain troponin, chest x-ray, BNP and basic labs Will reassess 03/06/19 15:17 pts labs reviewed, noted for elevated bnp awaiting cxr previous echo noted for normal EF, but +regurigtation ?valvular deterioration Heart Score/ECG Review - ECG Impressions Comment:: 03/06/19 15:17 Twelve-lead EKG was performed and reviewed by me. EKG performed: Paced ventricular rhythm Rate of 60 No signs of ischemia via Sgarbossa criteria
--- NOTE | 2019-03-06 17:17 | HP ---
CHIEF COMPLAINT: chest pain with palpitations with associated headache and neck pain PCP: Sonal Mccarty MD HISTORY OF PRESENT ILLNESS: Patient is an 78 year old male with a significant past medical history of CAD, [place] (s/p stents x 2), CVA 2x with residual garbled speech, hypertension, Afib, hepatitis C, cirrhosis, and colon CA. He presents to the ED for evaluation of chest pain x 3 days that worsened today prompting and ED visit. He characterizes his chest pain as sharp and intermittent that it is aggravated by walking and associated with headache and neck discomfort. He denies any shortness of breath. Patient here 11/2018 and at that time he was on rivaroxaban, however, he is no longer on this medication (confirmed by patient and medications reconciled with her, however, she is unsure why rivaroxaban was discontinued (? secondary to thrombocytopenia), but states he is on only asa 81mg daily). ER course was notable for: (1) platelets 63 (2) bnp 7748 (3) ast/alt 42/67 (4) alk phos 164 (5) ekg: paced ventricular rhythm. Rate of 60 Recent Travel: denies PAST MEDICAL/SURGICAL HISTORY: CAD, [place] (s/p stents x 2), CVA 2x with residual garbled speech, hypertension, Afib, hepatitis C, cirrhosis, and colon CA. Social History: Smoking: none Alcohol: none Drugs: none Allergies No Known Allergies Allergy (Verified 03/06/19 12:40) HOME MEDICATIONS: Home Medications Medication Instructions Recorded Amlodipine Besylate [Norvasc -] 10 mg PO DAILY 11/22/18 Aspirin [Aspirin EC] 81 mg PO DAILY 11/22/18 Atorvastatin Ca [Lipitor] 20 mg PO HS 11/22/18 Ergocalciferol (Vitamin D2) 1.25 mg PO WEEKLY 11/22/18 [Vitamin D2] Furosemide [Lasix -] 20 mg PO DAILY 11/22/18 Isosorbide Mononitrate [Imdur -] 30 mg PO DAILY 11/22/18 Losartan Potassium [Cozaar -] 25 mg PO DAILY 11/22/18 Metoprolol Succinate [Toprol Xl] 100 mg PO DAILY 11/22/18 PHYSICAL EXAMINATION Vital Signs - 24 hr 03/06/19 03/06/19 12:34 14:36 Temperature 97.9 F Pulse Rate 64 Respiratory 18 Rate Blood Pressure 124/70 O2 Sat by Pulse 99 100 Oximetry (%) GENERAL: Awake, alert, in no acute distress. HEAD: Normal with no signs of trauma. EYES: Pupils equal, round and reactive to light, extraocular movements intact, sclera anicteric, conjunctiva clear. No lid lag. EARS, NOSE, THROAT: Ears normal, nares patent, oropharynx clear without exudates. Moist mucous membranes. NECK: Normal range of motion, supple without lymphadenopathy, JVD, or masses. LUNGS: Breath sounds equal, clear to auscultation bilaterally. No wheezes, and no crackles. No accessory muscle use. HEART: Regular rate and rhythm ABDOMEN: Soft, nontender, not distended, normoactive bowel sounds, no guarding, no rebound, no masses. No hepatomegaly or splenomegaly. MUSCULOSKELETAL: No CVA tenderness. UPPER EXTREMITIES: No peripheral edema. LOWER EXTREMITIES: +2 lower ext edema NEUROLOGICAL: garbled speech, residual per , chronic. not a new finding. Normal gait. PSYCHIATRIC: Appropriate mood and affect. SKIN: Warm, dry, normal turgor, no rashes or lesions noted, normal capillary refill. Laboratory Results - last 24 hr 03/06/19 03/06/19 03/06/19 14:07 14:07 14:07 WBC 4.6 RBC 4.65 Hgb 12.8 Hct 39.7 MCV 85.4 MCH 27.5 MCHC 32.3 RDW 15.6 Plt Count 63 L MPV 10.7 D Absolute Neuts (auto) 3.2 Neutrophils % 69.6 Lymphocytes % 17.2 D Monocytes % 9.5 Eosinophils % 2.5 Basophils % 1.2 Nucleated RBC % 0 PT with INR INR PTT (Actin FS) Sodium 141 Potassium 4.1 Chloride 113 H Carbon Dioxide 25 Anion Gap 3 L BUN 26.6 H Creatinine 1.1 Est GFR (CKD-EPI)AfAm 73.09 Est GFR (CKD-EPI)NonAf 63.07 Random Glucose 94 Calcium 9.5 Magnesium 2.1 Total Bilirubin 0.9 AST 42 H ALT 67 H Alkaline Phosphatase 164 H Creatine Kinase 146 Troponin I 0.03 B-Natriuretic Peptide Total Protein 7.2 Albumin 3.7 03/06/19 03/06/19 14:07 14:07 WBC RBC Hgb Hct MCV MCH MCHC RDW Plt Count MPV Absolute Neuts (auto) Neutrophils % Lymphocytes % Monocytes % Eosinophils % Basophils % Nucleated RBC % PT with INR 13.80 H INR 1.17 H PTT (Actin FS) 30.6 Sodium Potassium Chloride Carbon Dioxide Anion Gap BUN Creatinine Est GFR (CKD-EPI)AfAm Est GFR (CKD-EPI)NonAf Random Glucose Calcium Magnesium Total Bilirubin AST ALT Alkaline Phosphatase Creatine Kinase Troponin I B-Natriuretic Peptide 7748.6 H Total Protein Albumin ASSESSMENT/PLAN: Problem List - Problem (1) Chest pain Assessment/Plan: chest pain accompanied by headache and chronic neck pain monitor on tele trend troponins echo per cardiology ekg vent paced, 60s, Code(s): R07.9 - CHEST PAIN, UNSPECIFIED Qualifiers: Chest pain type: unspecified Qualified Code(s): R07.9 - Chest pain, unspecified (2) Atrial fibrillation Assessment/Plan: on metoprolol 100 and asa 81mg xarelto d/cd per , she is unsure why patient does have thrombocytopenia Code(s): I48.91 - UNSPECIFIED ATRIAL FIBRILLATION (3) CAD (coronary artery disease) Assessment/Plan: on lipitor lipid profile in a.m. Code(s): I25.10 - ATHSCL HEART DISEASE OF [place] CORONARY ARTERY W/O ANG PCTRS Qualifiers: Coronary Disease-Associated Artery/Lesion type: [place] artery [place] vs. transplanted heart: [place] heart Associated angina: without angina Qualified Code(s): I25.10 - Atherosclerotic heart disease of [place] coronary artery without angina pectoris (4) HTN (hypertension) Assessment/Plan: controlled, continue home meds amlodopine and metoprolol Code(s): I10 - ESSENTIAL (PRIMARY) HYPERTENSION Qualifiers: Hypertension type: essential hypertension Qualified Code(s): I10 - Essential (primary) hypertension (5) History of CVA (cerebrovascular accident) Code(s): Z86.73 - PRSNL HX OF TIA (TIA), AND CEREB INFRC W/O RESID DEFICITS (6) Hx-TIA (transient ischemic attack) Code(s): Z86.73 - PRSNL HX OF TIA (TIA), AND CEREB INFRC W/O RESID DEFICITS (7) Thrombocytopenia Assessment/Plan: Plt 63 continue to trend avoid thrombocytopenic reducing agents Code(s): D69.6 - THROMBOCYTOPENIA, UNSPECIFIED (8) Prophylactic measure Assessment/Plan: fen PO adequate low salt diet full code defer heparin/lovenox for thrombocytopenia Code(s): Z29.9 - ENCOUNTER FOR PROPHYLACTIC MEASURES, UNSPECIFIED Visit type - Emergency Visit Emergency Visit: Yes ED Registration Date: 03/06/19 Care time: The patient presented to the Emergency Department on the above date and was hospitalized for further evaluation of their emergent condition. - New Patient This patient is new to me today: Yes Date on this admission: 03/06/19 - Critical Care Critical Care patient: No
[2019-03-06] MEDS ORDERED: ACETAMINOPHEN 325 MG TABLET (FP) PO PRN (18:06)
--- NOTE | 2019-03-06 18:26 | CON.CARD ---
Consult Consult Specialty:: cardiology Reason for Consultation:: atypical chest pain; shoulder pain and neck pain - History of Present Illness Chief Complaint: Pt alert; denies chest pain or dyspnea.. History of Present Illness: he patient is an 78 year old male with a significant PMH of CAD, [place] (s/p stents x2), 2 prior CVAs, HTN, afib (ASA only for AC), hepatitis C, cirrhosis, and colon CA who presents to the emergency department for 3 days of chest congestion and left-sided rib pain. The patient is a poor historian, however, describes the chest pain as midsternal radiating to his b/l shoulders. Patient also reports RUQ pain. states that he did not complain of pain until today. did note that he has some mild cough and cmplaint of sob this morning when wakening The patient denies shortness of breath, headache and dizziness. Denies fever, chills, cough, nausea, vomiting, diarrhea and constipation. Denies dysuria, frequency, urgency and hematuria. Allergies: NKDA surgical hx: pacemaker - History Source History Provided By: Patient, Medical Record Limitations to Obtaining History: Poor Historian - Past Medical History [employer]: Yes: CVA (x 2 2014) Cardio/Vascular: Yes: CHF (diastolic), HTN Gastrointestinal: Yes: Cancer (Colon cancer, in remission) Hepatobiliary: Yes: Cirrhosis, Hepatitis C (with cirrhosis) Heme/Onc: No: Anemia Rheumatology: Yes: Rheumatoid Arthritis - Past Surgical History Past Surgical History: Yes: Colectomy, Colonoscopy, Hernia Repair, Stent (x 2) - Alcohol/Substance Use Hx Alcohol Use: No History of Substance Use: reports: None - Smoking History Smoking history: Never smoked Have you smoked in the past 12 months: No If you are a former smoker, when did you quit?: 30 years ago - Social History Usual Living Arrangement: With Spouse ADL: Independent History of Recent Travel: No Home Medications - Allergies Allergies/Adverse Reactions: Allergies Allergy/AdvReac Type Severity Reaction Status Date / Time No Known Allergies Allergy Verified 03/06/19 12:40 - Home Medications Home Medications: Ambulatory Orders Amlodipine Besylate [Norvasc -] 10 mg PO DAILY 11/22/18 Aspirin [Aspirin EC] 81 mg PO DAILY 11/22/18 Atorvastatin Ca [Lipitor] 20 mg PO HS 11/22/18 Ergocalciferol (Vitamin D2) [Vitamin D2] 1.25 mg PO WEEKLY 11/22/18 Furosemide [Lasix -] 20 mg PO DAILY 11/22/18 Isosorbide Mononitrate [Imdur -] 30 mg PO DAILY 11/22/18 Losartan Potassium [Cozaar -] 25 mg PO DAILY 11/22/18 Metoprolol Succinate [Toprol Xl] 100 mg PO DAILY 11/22/18 Quetiapine Fumarate [Seroquel -] 25 mg PO HS tablet 03/08/19 Family Medical History Family Hx Cardiac Disorders: Father ( of [place] ?70 yrs old) Review of Systems - Review of Systems Constitutional: reports: No Symptoms Eyes: reports: No Symptoms HENT: reports: No Symptoms Neck: reports: No Symptoms Cardiovascular: reports: Chest Pain Respiratory: reports: No Symptoms Gastrointestinal: reports: No Symptoms Genitourinary: reports: Frequency Breasts: reports: No Symptoms Reported Musculoskeletal: reports: Muscle Weakness Integumentary: reports: No Symptoms Neurological: reports: Unsteady Gait, Weakness Endocrine: reports: No Symptoms Hematology/Lymphatic: reports: No Symptoms - Risk Factors Known Risk Factors: Yes: Diabetes Mellitus, Gender, Hypercholesterolemia, Hypertension, Physical Inactivity, Prior [place] /Emb Stroke, Other (diastolic CHF) Vital Signs: Vital Signs Temperature 97.9 F 03/06/19 12:34 Pulse Rate 60 03/06/19 17:29 Respiratory Rate 18 03/06/19 12:34 Blood Pressure 130/78 03/06/19 17:29 O2 Sat by Pulse Oximetry (%) 95 03/06/19 17:29 Constitutional: Yes: Calm Eyes: Yes: WNL HENT: Yes: WNL Neck: Yes: WNL Respiratory: Yes: SOB on Exertion Gastrointestinal: Yes: Soft Renal/: No: Anuria Heart Sounds: Yes: Split S2 Musculoskeletal: Yes: Back Pain, Joint Stiffness, Muscle Weakness Extremities: Yes: Cool Edema: No Peripheral Pulses WNL: Yes Integumentary: Yes: WNL Neurological: Yes: Alert, Weakness Psychiatric: Yes: Alert - Other Data Labs, Other Data: CBC, BMP 03/06/19 14:07 03/06/19 14:07 INR, PTT INR 1.17 (0.83-1.09) H 03/06/19 14:07 Troponin, BNP 03/06/19 03/06/19 14:07 14:07 Troponin I 0.03 B-Natriuretic Peptide 7748.6 H Troponin, BNP 03/06/19 03/06/19 14:07 14:07 Troponin I 0.03 B-Natriuretic Peptide 7748.6 H Abnormal Lab Results 03/08/19 03/08/19 11:40 11:40 MCHC 31.8 L Plt Count 67 L MPV 11.8 H D Monocytes % 12.9 H Potassium 3.4 L Anion Gap 5 L BUN 26.2 H Random Glucose 57 L AST 46 H ALT 66 H Alkaline Phosphatase 169 H Ejection Fraction %: LVEF > or = 40 % Imaging - Results Chest X-ray: Image Reviewed EKG: Image Reviewed Problem List - Problems (1) Atypical chest pain Assessment/Plan: Pt c/o days of bilateral shoulder pain, with occasional anterior chest wall discomfort (pt is vague about TNI 0.04; f/u serially. F/u records (sees [facility]) Code(s): R07.89 - OTHER CHEST PAIN (2) PAF (paroxysmal atrial fibrillation) Assessment/Plan: Review reason for not using systemic anticoagulation (ASA is not useful for protecting against clot with PAF). On metoprolol ER for both HR and BP control. +PPM Code(s): I48.0 - PAROXYSMAL ATRIAL FIBRILLATION
[2019-03-06] MEDS ORDERED: ATORVASTATIN CA 20 MG TABLET (FP) ONE (22:20)
[2019-03-06] MEDS ORDERED: QUEtiapine FUMARATE 25 MG TABLET (FP) ONE (22:20)
[2019-03-06] MEDS: ATORVASTATIN CA 20 MG TABLET (FP) PO SCH (22:21)
[2019-03-06] MEDS: QUEtiapine FUMARATE 25 MG TABLET (FP) PO SCH (22:22)
[2019-03-07 06:23] LABS: BASO % 1.1 % (0-2.0); EOS % 2.4 % (0-4.5); HEMATOCRIT 42.7 % (35.4-49); HEMOGLOBIN 14.1 GM/dL (11.7-16.9); LYMPH % 17.9 % (8-40); MCH 27.9 pg (25.7-33.7); MEAN CELL VOLUME 84.5 fl (80-96); MEAN PLT VOLUME 10.6 fl (7.5-11.1); MONO % 8.7 % (3.8-10.2); NEUT % 69.9 % (42.8-82.8); PLATELET COUNT 65 K/MM3 (134-434); RBC 5.05 M/mm3 (4.00-5.60); RDW 15.1 % (11.9-15.9); WHITE BLOOD COUNT 4.7 K/mm3 (4.0-10.0)
[2019-03-07 06:34] LABS: ALBUMIN 3.8 g/dl (3.4-5.0); CALCIUM 9.4 mg/dL (8.5-10.1); MAGNESIUM 1.9 mg/dL (1.8-2.4); POTASSIUM 3.9 mmol/L (3.5-5.1); TOT PROT 7.5 g/dl (6.4-8.2)
[2019-03-07] MEDS ORDERED: PT OWN MED DRAWER 7, Y5N ONE (11:09)
--- NOTE | 2019-03-07 11:44 | PN ---
Progress Note, Physician History of Present Illness: he patient is an 78 year old male with a significant PMH of CAD, [place] (s/p stents x2), 2 prior CVAs, HTN, afib (ASA only for AC), hepatitis C, cirrhosis, and colon CA who presents to the emergency department for 3 days of chest congestion and left-sided rib pain. The patient is a poor historian, however, describes the chest pain as midsternal radiating to his b/l shoulders. Patient also reports RUQ pain. states that he did not complain of pain until today. did note that he has some mild cough and cmplaint of sob this morning when wakening The patient denies shortness of breath, headache and dizziness. Denies fever, chills, cough, nausea, vomiting, diarrhea and constipation. Denies dysuria, frequency, urgency and hematuria. Allergies: NKDA surgical hx: pacemaker - Current Medication List Current Medications: Active Medications Acetaminophen (Tylenol -) 650 mg PO Q6H PRN PRN Reason: PAIN LEVEL 7 - 10 Amlodipine Besylate (Norvasc -) 10 mg PO DAILY [facility] Aspirin (Ecotrin -) 81 mg PO DAILY [facility] Atorvastatin Calcium (Lipitor -) 20 mg PO HS [facility] Last Admin: 03/06/19 22:21 Dose: 20 mg Furosemide (Lasix Injection -) 40 mg IVPUSH DAILY [facility] Isosorbide Mononitrate (Imdur -) 30 mg PO DAILY [facility] Losartan Potassium (Cozaar -) 25 mg PO DAILY [facility] Metoprolol Succinate (Toprol Xl -) 100 mg PO DAILY [facility] Quetiapine Fumarate (Seroquel -) 25 mg PO HS [facility] Last Admin: 03/06/19 22:22 Dose: 25 mg - Objective Vital Signs: Vital Signs Temperature 97.4 F L 03/07/19 05:00 Pulse Rate 62 03/07/19 05:00 Respiratory Rate 22 H 03/07/19 05:17 Blood Pressure 130/67 03/07/19 05:00 O2 Sat by Pulse Oximetry (%) 95 03/07/19 05:17 Eyes: Yes: WNL, Conjunctiva Clear, EOM Intact HENT: Yes: WNL, Atraumatic, Normocephalic Neck: Yes: WNL, Supple, Trachea Midline Cardiovascular: Yes: WNL, Regular Rate and Rhythm Respiratory: Yes: WNL, Regular, CTA Bilaterally Gastrointestinal: Yes: WNL, Normal Bowel Sounds Genitourinary: Yes: WNL Musculoskeletal: Yes: WNL Extremities: Yes: WNL Edema: No Integumentary: Yes: WNL Neurological: Yes: WNL, Alert, Oriented ...Motor Strength: WNL Psychiatric: Yes: WNL Labs: CBC, BMP 03/07/19 05:37 03/07/19 05:37 INR, PTT INR 1.17 (0.83-1.09) H 03/06/19 14:07 Assessment/Plan - Problems (1) Anemia Code(s): D64.9 - ANEMIA, UNSPECIFIED (2) Atypical chest pain Code(s): R07.89 - OTHER CHEST PAIN (3) PAF (paroxysmal atrial fibrillation) Assessment/Plan: Review reason for not using systemic anticoagulation (ASA is not useful for protecting against clot with PAF). Code(s): I48.0 - PAROXYSMAL ATRIAL FIBRILLATION
--- NOTE | 2019-03-07 11:45 | EKG ---
Test Reason : Blood Pressure : / mmHG Vent. Rate : 060 BPM Atrial Rate : 061 BPM P-R Int : 000 ms QRS Dur : 196 ms QT Int : 492 ms P-R-T Axes : 000 -81 098 degrees QTc Int : 492 ms Ventricular-paced rhythm ABNORMAL ECG WHEN COMPARED WITH ECG OF 22-NOV-2018 13:12, NO SIGNIFICANT CHANGE WAS FOUND Confirmed by CHRISTY VASQUEZ MD ([id number]) on 03/07/2019 11:44:43 AM Referred By: Confirmed By:CHRISTY VASQUEZ MD
[2019-03-07] MEDS: amLODIPine BESYLATE 10 MG TABLET (FP) PO SCH (11:54)
[2019-03-07] MEDS: LOSARTAN POTASSIUM 25 MG TABLET PO SCH (11:54)
[2019-03-07] MEDS: ISOSORBIDE MONONITRATE 30 MG TAB.SR.24H (FP) PO SCH (11:54)
[2019-03-07] MEDS: ASPIRIN COATED 81 MG TABLET.EC PO SCH (11:54)
[2019-03-07] MEDS: FUROSEMIDE 40 MG/4 ML INJECTABLE VIAL IVPUSH SCH (11:54)
--- NOTE | 2019-03-07 15:09 | PN ---
Physical Exam: SUBJECTIVE: Patient seen and examined at the bedside, denies further chest pain. at bedside. OBJECTIVE: Patient is an 78 year old male with a significant past medical history of CAD, [place] (s/p stents x 2), CVA 2x with residual garbled speech, hypertension, Afib, hepatitis C, cirrhosis, and colon CA. He presents to the ED for evaluation of chest pain x 3 days that worsened today prompting and ED visit. He characterizes his chest pain as sharp and intermittent that it is aggravated by walking and associated with headache and neck discomfort. He denies any shortness of breath. Patient here 11/2018 and at that time he was on rivaroxaban, however, he is no longer on this medication (confirmed by patient and medications reconciled with her, however, she is unsure why rivaroxaban was discontinued (? secondary to thrombocytopenia), but states he is on only asa 81mg daily). per prior notes, patient a/c (xarelto) was stopped 2/2 to gi bleed, ich and thrombocytopenia. attempting to confirm this with his interactive media marketing strategist (Dr. Ranjeet Phan, [facility] [phone]). called interactive media marketing strategist office 3 times, was transferred and asked to send a written requests for records/meds/echo. written request sent and awaiting documentation. states patient has not taken xarelto since December 2018 after seeing his interactive media marketing strategist. Vital Signs Period Temp Pulse Resp BP Sys/Rain Pulse Ox Last 24 Hr 97.4 F-98.3 F 60-70 16-22 116-137/60-78 94-95 GENERAL: Awake, alert, in no acute distress. HEAD: Normal with no signs of trauma. EYES: Pupils equal, round and reactive to light, extraocular movements intact, sclera anicteric, conjunctiva clear. No lid lag. EARS, NOSE, THROAT: Ears normal, nares patent, oropharynx clear without exudates. Moist mucous membranes. NECK: Normal range of motion, supple without lymphadenopathy, JVD, or masses. LUNGS: Breath sounds equal, clear to auscultation bilaterally. No wheezes, and no crackles. No accessory muscle use. HEART: Regular rate and rhythm ABDOMEN: Soft, nontender, not distended, normoactive bowel sounds, no guarding, no rebound, no masses. No hepatomegaly or splenomegaly. MUSCULOSKELETAL: No CVA tenderness. UPPER EXTREMITIES: No peripheral edema. LOWER EXTREMITIES: +2 lower ext edema NEUROLOGICAL: garbled speech, residual per , chronic. not a new finding. Normal gait. PSYCHIATRIC: Appropriate mood and affect. SKIN: Warm, dry, normal turgor, no rashes or lesions noted, normal capillary refill. Laboratory Results - last 24 hr 03/06/19 03/07/19 03/07/19 14:07 05:37 05:37 WBC 4.7 RBC 5.05 Hgb 14.1 Hct 42.7 MCV 84.5 MCH 27.9 MCHC 33.0 RDW 15.1 Plt Count 65 L MPV 10.6 Absolute Neuts (auto) 3.3 Neutrophils % 69.9 Lymphocytes % 17.9 Monocytes % 8.7 Eosinophils % 2.4 Basophils % 1.1 Nucleated RBC % 0 Sodium Potassium Chloride Carbon Dioxide Anion Gap BUN Creatinine Est GFR (CKD-EPI)AfAm Est GFR (CKD-EPI)NonAf Random Glucose Hemoglobin A1c % Calcium Magnesium 2.1 Total Bilirubin AST ALT Alkaline Phosphatase Troponin I 0.04 Total Protein Albumin Triglycerides Cholesterol Total LDL Cholesterol HDL Cholesterol 03/07/19 03/07/19 03/07/19 05:37 05:37 13:20 WBC RBC Hgb Hct MCV MCH MCHC RDW Plt Count MPV Absolute Neuts (auto) Neutrophils % Lymphocytes % Monocytes % Eosinophils % Basophils % Nucleated RBC % Sodium 141 Potassium 3.9 Chloride 112 H Carbon Dioxide 24 Anion Gap 5 L BUN 24.0 H Creatinine 1.0 Est GFR (CKD-EPI)AfAm 82.02 Est GFR (CKD-EPI)NonAf 70.77 Random Glucose 93 Hemoglobin A1c % 5.7 Calcium 9.4 Magnesium 1.9 Total Bilirubin 1.0 AST 40 H ALT 64 H Alkaline Phosphatase 170 H Troponin I 0.04 Total Protein 7.5 Albumin 3.8 Triglycerides 89 Cholesterol 149 Total LDL Cholesterol 72 HDL Cholesterol 65 H Active Medications Generic Name Dose Route Start Last Admin Trade Name Freq PRN Reason Stop Dose Admin Acetaminophen 650 mg 03/06/19 18:06 Tylenol - PO Q6H PRN PAIN LEVEL 7 - 10 Amlodipine Besylate 10 mg 03/07/19 10:00 03/07/19 11:54 Norvasc - PO 10 mg DAILY [facility] Administration Aspirin 81 mg 03/07/19 10:00 03/07/19 11:54 Ecotrin - PO 81 mg DAILY [facility] Administration Atorvastatin Calcium 20 mg 03/06/19 22:00 03/06/19 22:21 Lipitor - PO 20 mg HS [facility] Administration Furosemide 40 mg 03/07/19 10:00 03/07/19 11:54 Lasix Injection - IVPUSH 40 mg DAILY [facility] Administration Isosorbide Mononitrate 30 mg 03/07/19 10:00 03/07/19 11:54 Imdur - PO 30 mg DAILY [facility] Administration Losartan Potassium 25 mg 03/07/19 10:00 03/07/19 11:54 Cozaar - PO 25 mg DAILY [facility] Administration Metoprolol Succinate 100 mg 03/07/19 10:00 03/07/19 11:54 Toprol Xl - PO 100 mg DAILY [facility] Administration Quetiapine Fumarate 25 mg 03/06/19 22:00 03/06/19 22:22 Seroquel - PO 25 mg HS [facility] Administration ASSESSMENT/PLAN: Problem List - Problems (1) Acute CHF (congestive heart failure) Assessment/Plan: will need to confirm this diagnosis with cardiology patient on iv lasix presented with a bnp of 7700 monitor weights, labs awaiting paperwork from private interactive media marketing strategist Code(s): I50.9 - HEART FAILURE, UNSPECIFIED (2) Chest pain Assessment/Plan: chest pain accompanied by headache and chronic neck pain monitor on tele trend troponins echo per cardiology ekg vent paced, 60s, Code(s): R07.9 - CHEST PAIN, UNSPECIFIED Qualifiers: Chest pain type: unspecified Qualified Code(s): R07.9 - Chest pain, unspecified (3) Atrial fibrillation Assessment/Plan: on metoprolol 100 and asa 81mg xarelto d/cd per , she is unsure why patient does have thrombocytopenia Code(s): I48.91 - UNSPECIFIED ATRIAL FIBRILLATION (4) CAD (coronary artery disease) Assessment/Plan: on lipitor lipid profile in a.m. Code(s): I25.10 - ATHSCL HEART DISEASE OF [place] CORONARY ARTERY W/O ANG PCTRS Qualifiers: Coronary Disease-Associated Artery/Lesion type: [place] artery [place] vs. transplanted heart: [place] heart Associated angina: without angina Qualified Code(s): I25.10 - Atherosclerotic heart disease of [place] coronary artery without angina pectoris (5) HTN (hypertension) Assessment/Plan: controlled, continue home meds amlodopine and metoprolol Code(s): I10 - ESSENTIAL (PRIMARY) HYPERTENSION Qualifiers: Hypertension type: essential hypertension Qualified Code(s): I10 - Essential (primary) hypertension (6) History of CVA (cerebrovascular accident) Code(s): Z86.73 - PRSNL HX OF TIA (TIA), AND CEREB INFRC W/O RESID DEFICITS (7) Hx-TIA (transient ischemic attack) Code(s): Z86.73 - PRSNL HX OF TIA (TIA), AND CEREB INFRC W/O RESID DEFICITS (8) Thrombocytopenia Assessment/Plan: Plt 63 continue to trend avoid thrombocytopenic reducing agents Code(s): D69.6 - THROMBOCYTOPENIA, UNSPECIFIED (9) Prophylactic measure Assessment/Plan: fen PO adequate low salt diet full code defer heparin/lovenox for thrombocytopenia Code(s): Z29.9 - ENCOUNTER FOR PROPHYLACTIC MEASURES, UNSPECIFIED Visit type - Emergency Visit Emergency Visit: Yes ED Registration Date: 03/07/19 Care time: The patient presented to the Emergency Department on the above date and was hospitalized for further evaluation of their emergent condition. - New Patient This patient is new to me today: No - Critical Care Critical Care patient: No - Discharge Referral Referred to [facility] Med P.C.: No
[2019-03-07 15:47] VITALS: BMI 31.4
[2019-03-07] MEDS ORDERED: FLU VACCINE QUAD 60 MCG/0.5 ML (MDV 19-20) IM ONE (17:00)
[2019-03-07] MEDS: ATORVASTATIN CA 20 MG TABLET (FP) PO SCH (21:39)
[2019-03-07] MEDS: QUEtiapine FUMARATE 25 MG TABLET (FP) PO SCH (21:39)
[2019-03-08 06:34] VITALS: PULSE 60; TEMP 98.6
[2019-03-08] MEDS: amLODIPine BESYLATE 10 MG TABLET (FP) PO SCH (09:51)
[2019-03-08] MEDS: FUROSEMIDE 40 MG/4 ML INJECTABLE VIAL IVPUSH SCH (09:52)
[2019-03-08] MEDS: LOSARTAN POTASSIUM 25 MG TABLET PO SCH (09:52)
[2019-03-08] MEDS: ISOSORBIDE MONONITRATE 30 MG TAB.SR.24H (FP) PO SCH (09:52)
[2019-03-08] MEDS: ASPIRIN COATED 81 MG TABLET.EC PO SCH (09:52)
[2019-03-08 12:10] LABS: EOS % 2.2 % (0-4.5); HEMATOCRIT 43.7 % (35.4-49); HEMOGLOBIN 13.9 GM/dL (11.7-16.9); LYMPH % 13.6 % (8-40); MCH 27.1 pg (25.7-33.7); MCHC 31.8 g/dl (32.0-35.9); MEAN CELL VOLUME 85.2 fl (80-96); MEAN PLT VOLUME 11.8 fl (7.5-11.1); MONO % 12.9 % (3.8-10.2); NEUT % 70.3 % (42.8-82.8); PLATELET COUNT 67 K/MM3 (134-434); RBC 5.12 M/mm3 (4.00-5.60); RDW 14.8 % (11.9-15.9); WHITE BLOOD COUNT 5.3 K/mm3 (4.0-10.0)
--- NOTE | 2019-03-08 12:30 | DS ---
Physical Exam: SUBJECTIVE: Patient seen and examined at the bedside. OBJECTIVE: discussed restart of xarelto with Dr. Palafox. will not restart patient on xarelto until he is seen by his primary cardioloigst his math professor was informed by dr. palafox and will see patient. patient informed to follow up with his PCP and math professor. Patient is an 78 year old male with a significant past medical history of CAD, [place] (s/p stents x 2), CVA 2x with residual garbled speech, hypertension, Afib, hepatitis C, cirrhosis, and colon CA. He presents to the ED for evaluation of chest pain x 3 days that worsened today prompting and ED visit. He characterizes his chest pain as sharp and intermittent that it is aggravated by walking and associated with headache and neck discomfort. He denies any shortness of breath. Patient here 11/2018 and at that time he was on rivaroxaban, however, he is no longer on this medication (confirmed by patient and medications reconciled with her, however, she is unsure why rivaroxaban was discontinued (? secondary to thrombocytopenia), but states he is on only asa 81mg daily). Dr. Palafox spoke to patient's math professor who will see patient and decide on continuation of xarelto. Vital Signs Period Temp Pulse Resp BP Sys/Rain Pulse Ox Last 24 Hr 97.3 F-98.6 F 55-64 18-20 118-142/60-80 94 GENERAL: Awake, alert, in no acute distress. HEAD: Normal with no signs of trauma. EYES: Pupils equal, round and reactive to light, extraocular movements intact, sclera anicteric, conjunctiva clear. No lid lag. EARS, NOSE, THROAT: Ears normal, nares patent, oropharynx clear without exudates. Moist mucous membranes. NECK: Normal range of motion, supple without lymphadenopathy, JVD, or masses. LUNGS: Breath sounds equal, clear to auscultation bilaterally. No wheezes, and no crackles. No accessory muscle use. HEART: Regular rate and rhythm ABDOMEN: Soft, nontender, not distended, normoactive bowel sounds, no guarding, no rebound, no masses. No hepatomegaly or splenomegaly. MUSCULOSKELETAL: No CVA tenderness. UPPER EXTREMITIES: No peripheral edema. LOWER EXTREMITIES: +2 lower ext edema NEUROLOGICAL: garbled speech, residual per , chronic. not a new finding. Normal gait. PSYCHIATRIC: Appropriate mood and affect. SKIN: Warm, dry, normal turgor, no rashes or lesions noted, normal capillary refill. Laboratory Results - last 24 hr 03/07/19 03/08/19 13:20 11:40 WBC 5.3 RBC 5.12 Hgb 13.9 Hct 43.7 MCV 85.2 MCH 27.1 MCHC 31.8 L RDW 14.8 Plt Count 67 L MPV 11.8 H D Absolute Neuts (auto) 3.7 Neutrophils % 70.3 Lymphocytes % 13.6 D Monocytes % 12.9 H Eosinophils % 2.2 Basophils % 1.0 Nucleated RBC % 0 Troponin I 0.04 HOSPITAL COURSE: Date of Admission:03/07/19 Date of Discharge: 03/08/19 Minutes to complete discharge: 45 Discharge Summary Problems reviewed: Yes Reason For Visit: CHEST PAIN Current Active Problems Acute CHF (congestive heart failure) (Acute) Chest pain (Acute) Hypervolemia (Acute) PAF (paroxysmal atrial fibrillation) (Acute) Condition: Guarded - Instructions Diet, Activity, Other Instructions: Mr Sumit Hua Please see your primary care doctor and your math professor. You came in for chest pain and your workup was negative. You should be on a medication called XARELTO for your atrial fibrillation. We will not start you on this medication as you were taken off this medication in December 2018, but your math professor is aware that you are here in the hospital and he may restart you on this medication when you see him on your next appointment. It is important that you see him next week. Please also speak to your primary care doctor about re starting you on Xarelto. Thank you for allowing us to care for you. Referrals: Ainsley Mccormick MD [Staff Physician] - Disposition: HOME - Home Medications Comprehensive Discharge Medication List: Ambulatory Orders Amlodipine Besylate [Norvasc -] 10 mg PO DAILY 11/22/18 Aspirin [Aspirin EC] 81 mg PO DAILY 11/22/18 Atorvastatin Ca [Lipitor] 20 mg PO HS 11/22/18 Ergocalciferol (Vitamin D2) [Vitamin D2] 1.25 mg PO WEEKLY 11/22/18 Furosemide [Lasix -] 20 mg PO DAILY 11/22/18 Isosorbide Mononitrate [Imdur -] 30 mg PO DAILY 11/22/18 Losartan Potassium [Cozaar -] 25 mg PO DAILY 11/22/18 Metoprolol Succinate [Toprol Xl] 100 mg PO DAILY 11/22/18 Quetiapine Fumarate [Seroquel -] 25 mg PO HS tablet 03/08/19 Problem List - Problems (1) Acute CHF (congestive heart failure) Assessment/Plan: patient on iv lasix during hospital stay and will be transitioned back to lasix 20mg once per day presented with a bnp of 7700 patient will follow up with his math professor for further workup/testing. Code(s): I50.9 - HEART FAILURE, UNSPECIFIED (2) Chest pain Assessment/Plan: chest pain resolved cleared for d/c home Code(s): R07.9 - CHEST PAIN, UNSPECIFIED Qualifiers: Chest pain type: unspecified Qualified Code(s): R07.9 - Chest pain, unspecified (3) Atrial fibrillation Assessment/Plan: on metoprolol 100 and asa 81mg xarelto d/cd per , she is unsure why patient does have thrombocytopenia xarelto to be restarted by cardiology as an outpatient. has not been on xarelto since december per Code(s): I48.91 - UNSPECIFIED ATRIAL FIBRILLATION (4) CAD (coronary artery disease) Assessment/Plan: on lipitor Code(s): I25.10 - ATHSCL HEART DISEASE OF [place] CORONARY ARTERY W/O ANG PCTRS Qualifiers: Coronary Disease-Associated Artery/Lesion type: [place] artery [place] vs. transplanted heart: [place] heart Associated angina: without angina Qualified Code(s): I25.10 - Atherosclerotic heart disease of [place] coronary artery without angina pectoris (5) HTN (hypertension) Assessment/Plan: controlled, continue home meds amlodopine and metoprolol Code(s): I10 - ESSENTIAL (PRIMARY) HYPERTENSION Qualifiers: Hypertension type: essential hypertension Qualified Code(s): I10 - Essential (primary) hypertension (6) History of CVA (cerebrovascular accident) Code(s): Z86.73 - PRSNL HX OF TIA (TIA), AND CEREB INFRC W/O RESID DEFICITS (7) Hx-TIA (transient ischemic attack) Code(s): Z86.73 - PRSNL HX OF TIA (TIA), AND CEREB INFRC W/O RESID DEFICITS (8) Thrombocytopenia Assessment/Plan: avoid thrombocytopenic reducing agents Code(s): D69.6 - THROMBOCYTOPENIA, UNSPECIFIED (9) Prophylactic measure Assessment/Plan: discharge home Code(s): Z29.9 - ENCOUNTER FOR PROPHYLACTIC MEASURES, UNSPECIFIED This patient is new to me today: Yes Date on this admission: 03/08/19 Emergency Visit: No Critical Care patient: No - Discharge Referral Referred to [facility] Med P.C.: No
[2019-03-08 12:36] LABS: ALBUMIN 3.5 g/dl (3.4-5.0); BILIRUBIN,TOTAL 0.8 mg/dL (0.2-1); BLOOD UREA NITROGEN 26.2 mg/dL (7-18); CALCIUM 9.4 mg/dL (8.5-10.1); CREATININE 1.2 mg/dL (0.55-1.3); MAGNESIUM 1.9 mg/dL (1.8-2.4); POTASSIUM 3.4 mmol/L (3.5-5.1); TOT PROT 7.3 g/dl (6.4-8.2)
--- NOTE | 2019-03-08 12:58 | PN ---
Progress Note, Physician Chief Complaint: Pt Alert; eating breakfast; asymptomatic. History of Present Illness: he patient is an 78 year old male with a significant PMH of CAD, [place] (s/p stents x2), 2 prior CVAs, HTN, afib (ASA only for AC), hepatitis C, cirrhosis, and colon CA who presents to the emergency department for 3 days of chest congestion and left-sided rib pain. The patient is a poor historian, however, describes the chest pain as midsternal radiating to his b/l shoulders. Patient also reports RUQ pain. states that he did not complain of pain until today. did note that he has some mild cough and cmplaint of sob this morning when wakening The patient denies shortness of breath, headache and dizziness. Denies fever, chills, cough, nausea, vomiting, diarrhea and constipation. Denies dysuria, frequency, urgency and hematuria. Allergies: NKDA surgical hx: pacemaker - Current Medication List Current Medications: Active Medications Acetaminophen (Tylenol -) 650 mg PO Q6H PRN PRN Reason: PAIN LEVEL 7 - 10 Last Admin: 03/07/19 21:39 Dose: 650 mg Amlodipine Besylate (Norvasc -) 10 mg PO DAILY [facility] Last Admin: 03/08/19 09:51 Dose: 10 mg Aspirin (Ecotrin -) 81 mg PO DAILY [facility] Last Admin: 03/08/19 09:52 Dose: 81 mg Atorvastatin Calcium (Lipitor -) 20 mg PO HS [facility] Last Admin: 03/07/19 21:39 Dose: 20 mg Furosemide (Lasix Injection -) 40 mg IVPUSH DAILY [facility] Last Admin: 03/08/19 09:52 Dose: 40 mg Isosorbide Mononitrate (Imdur -) 30 mg PO DAILY [facility] Last Admin: 03/08/19 09:52 Dose: 30 mg Losartan Potassium (Cozaar -) 25 mg PO DAILY [facility] Last Admin: 03/08/19 09:52 Dose: 25 mg Metoprolol Succinate (Toprol Xl -) 100 mg PO DAILY [facility] Last Admin: 03/08/19 09:52 Dose: 100 mg Potassium Chloride (K-Dur -) 40 meq PO ONCE ONE Stop: 03/08/19 13:01 Quetiapine Fumarate (Seroquel -) 25 mg PO HS [facility] Last Admin: 03/07/19 21:39 Dose: 25 mg - Objective Vital Signs: Vital Signs Temperature 98.6 F 03/08/19 05:00 Pulse Rate 60 03/08/19 05:00 Respiratory Rate 18 03/08/19 05:00 Blood Pressure 128/80 03/08/19 05:00 O2 Sat by Pulse Oximetry (%) 94 L 03/07/19 13:00 Constitutional: Yes: Calm Labs: CBC, BMP 03/08/19 11:40 03/08/19 11:40 INR, PTT INR 1.17 (0.83-1.09) H 03/06/19 14:07 Problem List - Problems (1) Atypical chest pain Assessment/Plan: Pt c/o days of bilateral shoulder pain, with occasional anterior chest wall discomfort (pt is vague about TNI 0.03-->0.04 x 3 further llevels drawn. F/u records (sees [facility] cork floor installer) Addendum: I spoke with pt's cork floor installer (Ranjeet Polanco: [phone]). he says pt has had the combination of back, shoulder, neck, and chest pain for years(he has degernative joint disease). He was certain a stress test had been done in the recent past. He was not sure why pt is not on Xarelto, bu may have a hx of GI bleed. He will see the pt in the near future in office and reevaluate suitability for the anticoagulant. He had been taking a NSAID for pain (this should be discouraged, given pt's bleeding and cardiorenal hx). Code(s): R07.89 - OTHER CHEST PAIN (2) PAF (paroxysmal atrial fibrillation) Assessment/Plan: Review reason for not using systemic anticoagulation (ASA is not useful for protecting against clot with PAF). On metoprolol ER for both HR and BP control. +PPM See under "atypical chest pain" regarding anticoagulation. Code(s): I48.0 - PAROXYSMAL ATRIAL FIBRILLATION
[2019-03-08] MEDS ORDERED: POTASSIUM CHLORIDE TABS 20 MEQ TABLET.ER (FP) PO ONE (13:00)
[2019-03-08 14:15] VITALS: BP 126/78
== END 2019-03-08 14:39 | disposition home or self-care (01) | DRG 303 ==
LOC: JER 12:30 → JERBED 15:56 → J4W 03-07 14:53 → OBSVTOIN 03-07 15:29 → J4W 03-08 13:16
PROVIDERS: ADMIT Internal Medicine; ATTEND Nurse Practitioner Family
DX: I25.10 Atherosclerotic heart disease of native coronary artery without angina pectoris (principal); I11.0 Hypertensive heart disease with heart failure; M47.9 Spondylosis, unspecified; M19.019 Primary osteoarthritis, unspecified shoulder; R07.89 Other chest pain; I48.0 Paroxysmal atrial fibrillation; D69.6 Thrombocytopenia, unspecified; I50.9 Heart failure, unspecified; Z98.61 Coronary angioplasty status
CPT/HCPCS: 36415; 71045-TC-FY; 76705-TC; 80053; 80061; 82550; 83036; 83721; 83735; 83880; 84484; 85025; 85610; 85730; 93005; 93010; 99285-25; G0008; G0378; Q2036

== ENCOUNTER 2019-05-03 12:03 | Inpatient (IN) | payer MEDICARE, OTHER ==
--- NOTE | 2019-05-03 12:15 | PDOC ---
History of Present Illness - General Stated Complaint: ABD.PAIN/ CHEST PAIN Time Seen by Provider: 05/03/19 12:13 - History of Present Illness Initial Comments: 05/03/19 12:13 79 yo M PMH CAD, TX (s/p stents x 2), CVA 2x with residual garbled speech, HTN, afib, AICD, hepatitis C cirrhosis, and colon CA s/p resection in 1997, presenting with chest pain for 3 days. Mongolian speaking only. Patient is a poor historian and has multiple vague complaints. States that he has had sternal chest pain for the past 3 days, 11/01, radiating into the back of his neck. Reports that this is similar to symptoms he had when he was diagnosed with an TX. Here today because of mild worsening of the pain overnight. No SOB, N/V, or diaphoresis. Further complains of 3/10 frontal headache and mild epigastric abdominal pain. Denies SOB, dysuria, fevers/chills, constipation/diarrhea, recent travel, recent illness. Past History - Past Medical History Allergies/Adverse Reactions: Allergies Allergy/AdvReac Type Severity Reaction Status Date / Time No Known Allergies Allergy Verified 05/03/19 12:21 Home Medications: Ambulatory Orders Amlodipine Besylate [Norvasc -] 10 mg PO DAILY 11/22/18 Aspirin [Aspirin EC] 81 mg PO DAILY 11/22/18 Atorvastatin Ca [Lipitor] 20 mg PO HS 11/22/18 Ergocalciferol (Vitamin D2) [Vitamin D2] 1.25 mg PO WEEKLY 11/22/18 Furosemide [Lasix -] 20 mg PO DAILY 11/22/18 Isosorbide Mononitrate [Imdur -] 30 mg PO DAILY 11/22/18 Losartan Potassium [Cozaar -] 25 mg PO DAILY 11/22/18 Metoprolol Succinate [Toprol Xl] 100 mg PO DAILY 11/22/18 Quetiapine Fumarate [Seroquel -] 25 mg PO HS tablet 03/08/19 Apixaban [Eliquis] 2.5 mg PO HS 05/03/19 Anemia: No Asthma: No Cancer: Yes (Colon, colon resection) Cardiac Disorders: Yes (TX, PPM, cad) CVA: Yes (x2 last one 2013) COPD: No Diabetes: Yes HTN: Yes Hypercholesterolemia: Yes Liver Disease: Yes (HEP C, CIRRHOSIS) - Surgical History Abdominal Surgery: Yes (mass removed 1995 abdomen,colon) Cardiac Surgery: Yes (pacemaker) - Immunization History Immunization Up to Date: No - Psycho Social/Smoking Cessation Hx Smoking History: Never smoked Have you smoked in the past 12 months: No If you are a former smoker, when did you quit?: 30 years ago Hx Alcohol Use: No Drug/Substance Use Hx: No Substance Use Type: None Hx Substance Use Treatment: No Review of Systems - Review of Systems Comments:: 05/03/19 15:23 GENERAL/CONSTITUTIONAL: No fever or chills. No weakness. HEAD, EYES, EARS, NOSE AND THROAT: No change in vision. No ear pain or discharge. No sore throat. CARDIOVASCULAR: Sternal chest pain without shortness of breath. RESPIRATORY: No cough, wheezing, or hemoptysis. GASTROINTESTINAL: No nausea, vomiting, diarrhea or constipation. Mild epigastric abdominal pain. GENITOURINARY: No dysuria, frequency, or change in urination. MUSCULOSKELETAL: No joint or muscle swelling or pain. Mild neck pain radiating from chest. SKIN: No rash NEUROLOGIC: Mild frontal headache. No vertigo, loss of consciousness, or change in strength/sensation. ENDOCRINE: No increased thirst. No abnormal weight change. HEMATOLOGIC/LYMPHATIC: No anemia, easy bleeding, or history of blood clots. ALLERGIC/IMMUNOLOGIC: No hives or skin allergy *Physical Exam - Physical Exam 05/04/19 11:58 Gen: well-developed, well-nourished, NAD Neuro: AAOX4, CN II-XII intact, FTN intact, EOMI, PERRLA, 5/5 strength, SILT HEENT: atraumatic, normocephalic, dry mucous membranes Neck: trachea midline, supple CV: regular rate, regular rhythm, no murmurs, rubs, or gallops Pulm: CTA b/l, no wheezing Abd: soft, moderately distended, epigastric tenderness MSK: full ROM, intact pulses Extr: no edema, no deformities Skin: warm, dry ED Treatment Course - LABORATORY CBC & Chemistry Diagram: 05/04/19 07:17 05/04/19 07:17 Medical Decision Making - Medical Decision Making 05/03/19 12:24 79 yo M with significant cardiac history, colon CA, presenting with vague complaints. Includes chest pain, neck pain, headache, epigastric pain. - CBC, CMP, lipase - EKG, CXR, trop - UA/UC - reassess 05/03/19 13:24 EKG ventricular-paced at 73 bpm, multiple PVCs. Previously had been ventricular- paced at precisely 60 bpm. CXR with no acute pathology, pacemaker in place. 05/03/19 14:26 UA with nitrates but with epithelial cells, questionable UTI. However, does have LORRAINE (Cr 1.5 from 1). Patient with transaminitis, AST and ALT both 120s, alk phos 400s, lipase 400s. T bili 2.1. Will get RUQ US, give 1L NS. 05/03/19 17:05 US abdomen: cirrhosis. Gallbladder wall thickening consistent with liver disease as opposed to acute cholecystitis. Worsened perihepatic ascites. 05/03/19 18:20 Spoke with surgery concrete buster operator Dr. rAellano, who states that it sounds like worsening liver disease considering lack of stones, sludge, or biliary distension. However, if there is concern for a potential operation, the patient requires transfer to a tertiary center considering his history of cirrhosis and colon cancer in the past. Will admit for further workup, consult GI. Discharge - Discharge Information Problems reviewed: Yes Clinical Impression/Diagnosis: LORRAINE (acute kidney injury), Transaminitis, Abdominal pain - Follow up/Referral - Patient Discharge Instructions - Post Discharge Activity
[2019-05-03] MEDS ORDERED: ACETAMINOPHEN 1000 MG/100 ML VIAL (NON FORMULARY) IVPB ONE (12:37)
[2019-05-03] MEDS ORDERED: MAG HYDROX/AL HYDROX/SIMETH 30 ML UNIT-DOSE CUP PO ONE (12:38)
[2019-05-03] MEDS ORDERED: FAMOTIDINE 20 MG/50 ML IVPB 20 MG/50 ML MG IVPB ONE ×2 (12:45)
[2019-05-03] MEDS ORDERED: ACETAMINOPHEN INJECTION 100 ML IVPB ONE (12:45)
[2019-05-03] MEDS ORDERED: MAG HYDROX/AL HYDROX/SIMETH 30 ML UNIT-DOSE CUP ONE (13:07)
--- NOTE | 2019-05-03 13:14 | PDOC ---
Documentation entered by Ketan Bo SCRIBE, acting as scribe for Bernabe Valdez MD. Bernabe Valdez MD: This documentation has been prepared by the Betzy luna Nirvannie, SCRIBE, under my direction and personally reviewed by me in its entirety. I confirm that the documentation accurately reflects all work, treatment, procedures, and medical decision making performed by me. Attending Attestation - Resident Resident Name: [email or web address] - ED Attending Attestation I have performed the following: I have examined & evaluated the patient, The case was reviewed & discussed with the resident, I agree w/resident's findings & plan, Exceptions are as noted - HPI HPI: 05/03/19 12:34 79y M hx of CVA x 2 (residual slurred speech/memory problems), htn, hl, afib, colon ca, presents with a complaint of 3 days of chest pain, mild headache, cough productive of yellowish sputum, epigastric abdominal pain. In general the patient is a poor historian and cannot really localize anything nor elaborate on his symptoms. Functional history was given by the patient's daughter who is bedside, also notes that his urine was more yellow appearing than usual. Patient denies any fever, chills, nausea, vomiting, diaphoresis, shortness of breath, diarrhea, dysuria, focal numbness, tingling, weakness - Physicial Exam PE: 05/03/19 13:11 GENERAL: The patient is awake, Nontoxic - in no acute distress. HEAD: Normocephalic, atraumatic. EYES: extraocular movements intact, sclera anicteric, conjunctiva clear. ENT: Normal voice, Moist mucous membranes. NECK: Normal range of motion, supple LUNGS: Breath sounds equal, clear to auscultation bilaterally. No wheezes, no rhonchi, no rales. HEART: Regular rate and rhythm, normal S1 and S2 without murmur, rub or gallop. ABDOMEN: Soft, nontender, No guarding, no rebound. No CVA tenderness EXTREMITIES: Normal range of motion, trace edema, negative Homans NEUROLOGICAL: No facial assymetry, Normal speech, PSYCH: Normal mood, normal affect. SKIN: Warm, Dry, normal turgor, - Medical Decision Making 05/03/19 13:12 Differential for the patient's symptoms are very wide including possible tension headache, ACS, pneumonia, pancreatitis, acid reflux. We will give the patient some Pepcid Maalox, will obtain blood work to screen for the rest, give Tylenol for his headache. Pain chest x-ray to screen for pneumonia Will reassess 05/03/19 16:11 The patient's blood work was reviewed the UA is positive for UTI The patient's LFTs and T bili are also a bit elevated, will obtain a right upper quadrant ultrasound to further evaluate for cholecystitis versus cholelithiasis. The troponin is negative 05/03/19 18:25 The patient's ultrasound noted for a slight wall thickening. Clinically the patient does not appear to have a cholecystitis however he is a poor historian he does not have a fever nor a white count. He no abd pain and no tenderness, neg murphies. I suspect that his wall thickening is due to his liver disease rather than cholecystitis . will consult with GI (clark)
[2019-05-03 13:22] LABS: BASO % 1.5 % (0-2.0); EOS % 2.1 % (0-4.5); HEMATOCRIT 45.1 % (35.4-49); HEMOGLOBIN 14.5 GM/dL (11.7-16.9); LYMPH % 13.8 % (8-40); MCH 27.5 pg (25.7-33.7); MCHC 32.1 g/dl (32.0-35.9); MEAN CELL VOLUME 85.8 fl (80-96); MEAN PLT VOLUME 10.3 fl (7.5-11.1); MONO % 7.8 % (3.8-10.2); NEUT % 74.8 % (42.8-82.8); PLATELET COUNT 88 K/MM3 (134-434); RBC 5.26 M/mm3 (4.00-5.60); RDW 16.2 % (11.9-15.9); WHITE BLOOD COUNT 4.3 K/mm3 (4.0-10.0)
[2019-05-03 14:06] LABS: ALBUMIN 3.2 g/dl (3.4-5.0); BILIRUBIN,TOTAL 2.1 mg/dL (0.2-1); BLOOD UREA NITROGEN 33.2 mg/dL (7-18); CALCIUM 9.8 mg/dL (8.5-10.1); CREATININE 1.5 mg/dL (0.55-1.3); POTASSIUM 4.9 mmol/L (3.5-5.1); TOT PROT 7.5 g/dl (6.4-8.2)
[2019-05-03 14:14] LABS: URINE APPEARANCE CLOUDY; URINE BILIRUBIN 2+ (NEGATIVE); URINE COLOR DK YELLOW; URINE GLUCOSE (UA) NEGATIVE (NEGATIVE); URINE KETONE NEGATIVE (NEGATIVE); URINE LEUK ESTERASE NEGATIVE (NEGATIVE); URINE NITRITE POSITIVE (NEGATIVE); URINE PROTEIN 1+ (NEGATIVE)
[2019-05-03] MEDS ORDERED: SODIUM CHLORIDE 0.9% 500 ML INFUS.BAG IV ONE (14:19)
--- NOTE | 2019-05-03 14:34 | EKG ---
Test Reason : Blood Pressure : / mmHG Vent. Rate : 073 BPM Atrial Rate : 059 BPM P-R Int : 000 ms QRS Dur : 192 ms QT Int : 502 ms P-R-T Axes : 000 -82 096 degrees QTc Int : 553 ms Ventricular-paced rhythm WITH FREQUENT PREMATURE VENTRICULAR COMPLEXES ABNORMAL ECG WHEN COMPARED WITH ECG OF 06-MAR-2019 12:33, PREMATURE VENTRICULAR COMPLEXES ARE NOW PRESENT VENT. RATE HAS INCREASED BY 13 BPM Confirmed by TWIN MARCOS MD ([id number]) on 05/03/2019 2:34:40 PM Referred By: CLIFTON Confirmed By:TWIN MARCOS MD
[2019-05-03 14:42] LABS: EPI CELLS 14.5 /HPF (0-5/HPF); URINE RBC 4.8 /hpf (0-4); URINE WBC 6.2 /hpf (0-5)
[2019-05-03 14:43] LABS: HYALINE CASTS 132.97 /lpf (0-8); URINE BACTERIA 1.9 /hpf (NEGATIVE)
[2019-05-03] MEDS ORDERED: CEFTRIAXONE 1,000 MG in DEXTROSE 5%-WATER - 50 ML IVPB ONE (18:37)
[2019-05-03] MEDS ORDERED: CEFTRIAXONE 1 GM/50 ML BAG ONE (18:56)
[2019-05-03] MEDS ORDERED: LOSARTAN POTASSIUM 25 MG TABLET PO ONE (20:08)
--- NOTE | 2019-05-03 20:15 | HP ---
CHIEF COMPLAINT: chest pain and increased abdominal girth HISTORY OF PRESENT ILLNESS: 79 Nicaraguan speaking M h/o CAD s/p 2 stents and ppm, HTN, HLD, ?Hep C liver cirrhosis, presents to the ED with chief complaint of chest, shoulder, neck and back pain. Patient has numerous ED presentations with similar CC. Patient endorses chronic joint pain, as per chart he has history of degenerative joint disease, endorses chest pain is on and off for several days, is pleuritic, reproducible on pressing on anterior chest wall and a/w some cough w/ whitish sputum. Patient denies fever/chills/palpitations. Family however endorses he has not been eating as much lately, and noticed his "belly getting bigger". Last time in hospital was in 02/2019 where he was admitted to [facility] for chest pain workup, at that time patient was advised to follow up with outside leather belt shaper at [facility]. Patient ET about 1 flight of stairs limited by SOB, family says he is not as active as he used to be. ER course was notable for: (1) Ceftriaxone given for UTI (2) Abdominal US (3) Recent Travel: denies PAST MEDICAL HISTORY: as above PAST SURGICAL HISTORY: abdominal surgery, pacemaker Social History: former etoh use Smoking:denies Alcohol: former drinker Drugs: denies Allergies No Known Allergies Allergy (Verified 05/03/19 12:21) HOME MEDICATIONS: Home Medications Medication Instructions Recorded Amlodipine Besylate [Norvasc -] 10 mg PO DAILY 11/22/18 Aspirin [Aspirin EC] 81 mg PO DAILY 11/22/18 Atorvastatin Ca [Lipitor] 20 mg PO HS 11/22/18 Ergocalciferol (Vitamin D2) 1.25 mg PO WEEKLY 11/22/18 [Vitamin D2] Furosemide [Lasix -] 20 mg PO DAILY 11/22/18 Isosorbide Mononitrate [Imdur -] 30 mg PO DAILY 11/22/18 Losartan Potassium [Cozaar -] 25 mg PO DAILY 11/22/18 Metoprolol Succinate [Toprol Xl] 100 mg PO DAILY 11/22/18 Quetiapine Fumarate [Seroquel -] 25 mg PO HS tablet 03/08/19 Apixaban [Eliquis] 2.5 mg PO HS 05/03/19 REVIEW OF SYSTEMS CONSTITUTIONAL: fatigue, weight loss Absent: fever, chills, diaphoresis, generalized weakness, HEENT: Absent: rhinorrhea, nasal congestion, throat pain, throat swelling, difficulty swallowing, mouth swelling, ear pain, eye pain, visual changes CARDIOVASCULAR: Absent: chest pain, syncope, palpitations, irregular heart rate, lightheadedness , peripheral edema RESPIRATORY: Absent: cough, shortness of breath, dyspnea with exertion, orthopnea, wheezing, stridor, hemoptysis GASTROINTESTINAL: Absent: abdominal pain, abdominal distension, nausea, vomiting, diarrhea, constipation, melena, hematochezia GENITOURINARY: Absent: dysuria, frequency, urgency, hesitancy, hematuria, flank pain, genital pain MUSCULOSKELETAL: chest pain, neck pain, LBP Absent: myalgia, joint swelling, Current Medications Generic Name Dose Route Start Last Admin Trade Name Freq PRN Reason Stop Dose Admin Amlodipine Besylate 10 mg 05/04/19 10:00 Norvasc - PO DAILY [facility] Apixaban 2.5 mg 05/03/19 22:00 05/03/19 22:32 Eliquis - PO 2.5 mg BID [facility] Administration Aspirin 81 mg 05/04/19 10:00 Ecotrin - PO DAILY [facility] Famotidine 20 mg 05/03/19 22:00 05/03/19 22:32 Pepcid - PO 20 mg BID [facility] Administration Furosemide 20 mg 05/04/19 10:00 Lasix - PO DAILY [facility] Ceftriaxone Sodium 1 gm/ 50 mls @ 100 mls/hr 05/04/19 10:00 Dextrose IVPB DAILY [facility] Isosorbide Mononitrate 30 mg 05/04/19 10:00 Imdur - PO DAILY [facility] Metoprolol Succinate 100 mg 05/04/19 10:00 Toprol Xl - PO DAILY [facility] SKIN: Absent: rash, itching, pallor HEMATOLOGIC/IMMUNOLOGIC: Absent: easy bleeding, easy bruising, lymphadenopathy, frequent infections ENDOCRINE: Absent: unexplained weight gain, unexplained weight loss, heat intolerance, cold intolerance NEUROLOGIC: Absent: headache, focal weakness or paresthesias, dizziness, unsteady gait, seizure, mental status changes, bladder or bowel incontinence PSYCHIATRIC: Absent: anxiety, depression, suicidal or homicidal ideation, hallucinations. PHYSICAL EXAMINATION Vital Signs - 24 hr 05/03/19 05/03/19 05/03/19 12:19 13:19 16:49 Temperature 98 F 97.4 F L Pulse Rate 61 Pulse Rate [ 60 60 Apical] Respiratory 18 18 Rate Blood Pressure 115/57 L Blood Pressure 120/64 121/80 [Left Arm] O2 Sat by Pulse 100 98 Oximetry (%) 05/03/19 05/03/19 05/03/19 19:23 20:01 20:11 Temperature 97.8 F Pulse Rate Pulse Rate [ 60 60 Apical] Respiratory 18 Rate Blood Pressure Blood Pressure 121/75 121/74 [Left Arm] O2 Sat by Pulse 98 98 100 Oximetry (%) Laboratory Results - last 24 hr 05/03/19 05/03/19 05/03/19 13:00 13:00 13:00 WBC 4.3 RBC 5.26 Hgb 14.5 Hct 45.1 MCV 85.8 MCH 27.5 MCHC 32.1 RDW 16.2 H Plt Count 88 L D MPV 10.3 D Absolute Neuts (auto) 3.2 Neutrophils % 74.8 Lymphocytes % 13.8 Monocytes % 7.8 Eosinophils % 2.1 Basophils % 1.5 Nucleated RBC % 0 Sodium 138 Potassium 4.9 Chloride 106 Carbon Dioxide 28 Anion Gap 3 L BUN 33.2 H Creatinine 1.5 H Est GFR (CKD-EPI)AfAm 49.89 Est GFR (CKD-EPI)NonAf 43.04 Random Glucose 174 H Calcium 9.8 Total Bilirubin 2.1 H AST 126 H ALT 128 H Alkaline Phosphatase 462 H Creatine Kinase 132 Troponin I 0.03 Total Protein 7.5 Albumin 3.2 L Lipase 475 H Urine Color Urine Appearance Urine pH Ur Specific [place] Urine Protein Urine Glucose (UA) Urine Ketones Urine Blood Urine Nitrite Urine Bilirubin Urine Urobilinogen Ur Leukocyte Esterase Urine WBC (Auto) Urine RBC (Auto) Urine Casts (Auto) U Pathogenic Cast Auto U Epithel Cells (Auto) Urine Bacteria (Auto) 05/03/19 13:38 WBC RBC Hgb Hct MCV MCH MCHC RDW Plt Count MPV Absolute Neuts (auto) Neutrophils % Lymphocytes % Monocytes % Eosinophils % Basophils % Nucleated RBC % Sodium Potassium Chloride Carbon Dioxide Anion Gap BUN Creatinine Est GFR (CKD-EPI)AfAm Est GFR (CKD-EPI)NonAf Random Glucose Calcium Total Bilirubin AST ALT Alkaline Phosphatase Creatine Kinase Troponin I Total Protein Albumin Lipase Urine Color Dk yellow Urine Appearance Cloudy Urine pH 5.0 Ur Specific Turon 1.026 Urine Protein 1+ H Urine Glucose (UA) Negative Urine Ketones Negative Urine Blood Negative Urine Nitrite Positive H Urine Bilirubin 2+ H Urine Urobilinogen 1.0 Ur Leukocyte Esterase Negative Urine WBC (Auto) 6.2 Urine RBC (Auto) 4.8 Urine Casts (Auto) 132.97 U Pathogenic Cast Auto None U Epithel Cells (Auto) 14.5 Urine Bacteria (Auto) 1.9 ASSESSMENT/PLAN: 79 M h/o CAD s/p stenting, PPM, HTN, HLD, ?Hep c liver cirrhosis, LORRAINE v.s. CKD, presents with chest pain likely MSK related now resolved, and increased abdominal girth in setting of transaminitis. Chest pain first set of trops/ekg negative, CP now resolved but reproducible when pressing on chest wall, likely MSK related cont. trending trops/EKG admit to tele for chest pain obs. Cardiology consult CAD s/p stent placement obtain collateral from leather belt shaper at [facility], no signs of bleeding endorses last bleed was 2 years ago, since then has been taking his Eliquis regularly resume BB, hold statin in view of transaminitis, ARB, ASA, AC Transaminitis likely 2/2 worsening liver cirrhosis due to Hep C on Ceftriaxone for UTI however this will also cover possible SBP Send hepatitis panel, HCV viral load and genotyping Abd US to r/o intrahepatic injury, acetaminophen levels, will need baseline EGD GI consult: Dr Mosqueda HLMian hold statin in view of hepatic injury HTN restart home BP meds LORRAINE v.s. ?CKD obtain renal sono trend chem, avoid nephrotoxins, monitor urine output Treat UTI empirically with Ceftriaxone, send urine cx if sono reveals significant post void volume, place milan catheter Renal consult: Dr. Figueroa DVT ppx: Eliquis FEN: PO hydration, daily chem, Na restricted diet GI PPX: Famotidine Admit to telemetry unit Visit type - Emergency Visit Emergency Visit: Yes ED Registration Date: 05/03/19 Care time: The patient presented to the Emergency Department on the above date and was hospitalized for further evaluation of their emergent condition. - New Patient This patient is new to me today: Yes Date on this admission: 05/03/19 - Critical Care Critical Care patient: No
[2019-05-03] MEDS: APIXABAN 2.5 MG TABLET PO SCH (22:32)
[2019-05-03] MEDS: FAMOTIDINE 20 MG TABLET PO SCH (22:32)
--- NOTE | 2019-05-04 07:08 | CON.CARD ---
Consult Consult Specialty:: Cardiology Referred by:: Dr. Holt Reason for Consultation:: Hx CAD, atypical CP - History of Present Illness Chief Complaint: abdominal and chest pain History of Present Illness: 79M with PMHX Hep C, CAD s/p PCI (followed at [facility] by Dr. Polanco [phone]), PAF previouslu not on AC during February 2019 admission here, PPM, chronic back /shoulder/neck pain secondary to DJD , now presents with LORRAINE, increased LFTs, elevated lipase and atypical chest and upper abdominal pain. Cardiac enzymes negative x 2. Echo November 2018: Normal biV fxn, dilated LA, Moderate MR and TR. Patient no previously on AC for PAF due hx of prior GIB (see Dr. Kirk's note form 03/08/19, prior admission where he documents conversation with patient 's truckman at [facility] Dr. Polanco [phone]) History obtained in Bulgarian: He reports pain over right shoulder, diffusely over abdomen. Denies anginal CP, SOB, palps or edema. - Past Medical History RELIEF WORKER: Yes: CVA (x 2 2013) Cardio/Vascular: Yes: AFIB, CAD, CHF (diastolic), HTN, Other (PPM) Gastrointestinal: Yes: Cancer (Colon cancer, in remission) Hepatobiliary: Yes: Cirrhosis, Hepatitis C (with cirrhosis) Rheumatology: Yes: Rheumatoid Arthritis - Past Surgical History Past Surgical History: Yes: Colectomy, Colonoscopy, Hernia Repair, Stent (x 2) - Alcohol/Substance Use Hx Alcohol Use: No History of Substance Use: reports: None - Smoking History Smoking history: Never smoked Have you smoked in the past 12 months: No If you are a former smoker, when did you quit?: 30 years ago - Social History Usual Living Arrangement: With Spouse ADL: Independent History of Recent Travel: No Home Medications - Allergies Allergies/Adverse Reactions: Allergies Allergy/AdvReac Type Severity Reaction Status Date / Time No Known Allergies Allergy Verified 05/03/19 12:21 - Home Medications Home Medications: Ambulatory Orders Amlodipine Besylate [Norvasc -] 10 mg PO DAILY 11/22/18 Aspirin [Aspirin EC] 81 mg PO DAILY 11/22/18 Atorvastatin Ca [Lipitor] 20 mg PO HS 11/22/18 Ergocalciferol (Vitamin D2) [Vitamin D2] 1.25 mg PO WEEKLY 11/22/18 Furosemide [Lasix -] 20 mg PO DAILY 11/22/18 Isosorbide Mononitrate [Imdur -] 30 mg PO DAILY 11/22/18 Losartan Potassium [Cozaar -] 25 mg PO DAILY 11/22/18 Metoprolol Succinate [Toprol Xl] 100 mg PO DAILY 11/22/18 Quetiapine Fumarate [Seroquel -] 25 mg PO HS tablet 03/08/19 Apixaban [Eliquis] 2.5 mg PO HS 05/03/19 Family Medical History Family History: Unremarkable Review of Systems - Review of Systems Constitutional: reports: No Symptoms Eyes: reports: No Symptoms HENT: reports: No Symptoms Neck: reports: No Symptoms Cardiovascular: reports: Chest Pain Respiratory: reports: No Symptoms Gastrointestinal: reports: Abdominal Pain Genitourinary: reports: No Symptoms Breasts: reports: No Symptoms Reported Musculoskeletal: reports: Back Pain, Other (right shoulder pain) Neurological: denies: No Symptoms, Change in LOC, Change in Speech, Confusion, Dizziness, Headache, Incoordination, Numbness, Parasthesia, Pre-Existing Deficit , Seizure, Syncope, Tremors, Unsteady Gait, Weakness, Other Endocrine: denies: No Symptoms, Excessive Sweating, Flushing, Increased Hunger, Increased Thirst, Intolerance to Cold, Intolerance to Heat, Unexplained Weight Gain, Unexplained Weight Loss, Other Hematology/Lymphatic: denies: No Symptoms, Easily Bruised, Excessive Bleeding, Swollen Glands, Other - Risk Factors Known Risk Factors: Yes: Other (CAD) Vital Signs: Vital Signs Temperature 98 F 05/04/19 00:00 Pulse Rate 84 05/04/19 00:00 Respiratory Rate 20 05/04/19 00:00 Blood Pressure 113/62 05/04/19 00:00 O2 Sat by Pulse Oximetry (%) 98 05/03/19 21:00 Constitutional: Yes: No Distress, Calm Respiratory: Yes: CTA Bilaterally Gastrointestinal: Yes: Soft, Abdomen, Obese, Other (distended.) Cardiovascular: Yes: Regular Rate and Rhythm (paced.) JVD: No Carotid Bruit: No PMI: Non-Displaced Heart Sounds: Yes: S1, S2 (RRR.) Edema: No Peripheral Pulses WNL: Yes ...Motor Strength: WNL - Other Data Labs, Other Data: CBC, BMP 05/03/19 13:00 05/03/19 13:00 Troponin, BNP 05/03/19 05/04/19 13:00 00:00 Troponin I 0.03 0.05 Troponin, BNP 05/03/19 05/04/19 13:00 00:00 Troponin I 0.03 0.05 Ejection Fraction %: LVEF > or = 40 % Imaging - Results Chest X-ray: Report Reviewed EKG: Image Reviewed (Paced 60bpm) Assessment/Plan IMP: Hep C, cirrhosis Thrombocytopenia History of Colon Cancer PAF s/p PPM CAD s/p PCI Acute renal insufficiency Transaminitis Abdominal pain Atypical Chest pain REC: 1. Telemetry for serial cardiac enzymes, thus far 2 sets negative. Obtain 3rd set cardiac enzymes. 2. As per review of old records here, pt. was not on AC for PAF due to hx of prior GIB (see old note, Dr. Kirk 03/08/19). Patient is currently on Eliquis, which may have been started since that admission as outpatient by primary Local Area Network Administrator. Will reach out to pt's truckman at Dr. Polanco to chencho ([phone]). Given his h/o Cirrhosis/thrombocytopenia would need to use caution in long term care administrator ASA + NOAC therapy as he is likely at elevated risk for GI bleeding. Defer this decision to his primary liver team and primary outpatient truckman. 3. Outpatient stress test if not recently done. 4. Cont home BP meds and Toprol for rate control. 5. GI evaluation pending. Will follow. Please call if questions or clinical changes
[2019-05-04 07:55] LABS: BASO % 1.1 % (0-2.0); EOS % 1.1 % (0-4.5); HEMATOCRIT 45.1 % (35.4-49); HEMOGLOBIN 14.8 GM/dL (11.7-16.9); LYMPH % 12.6 % (8-40); MCH 27.9 pg (25.7-33.7); MCHC 32.7 g/dl (32.0-35.9); MEAN CELL VOLUME 85.1 fl (80-96); MEAN PLT VOLUME 10.7 fl (7.5-11.1); MONO % 8.3 % (3.8-10.2); NEUT % 76.9 % (42.8-82.8); PLATELET COUNT 94 K/MM3 (134-434); RDW 15.7 % (11.9-15.9); WHITE BLOOD COUNT 6.1 K/mm3 (4.0-10.0)
[2019-05-04 08:05] LABS: INR 1.64 (0.83-1.09); PROTHROMBIN TIME (PATIENT) 19.4 SEC (9.7-13.0)
[2019-05-04] MEDS ORDERED: TAMSULOSIN HCL 0.4 MG CAP PO SCH (08:30)
[2019-05-04 09:20] LABS: ALBUMIN 3.5 g/dl (3.4-5.0); BILIRUBIN,DIRECT 1.6 mg/dL (0.0-0.2); BILIRUBIN,TOTAL 2.5 mg/dL (0.2-1); CALCIUM 9.9 mg/dL (8.5-10.1); CREATININE 1.4 mg/dL (0.55-1.3); POTASSIUM 4.8 mmol/L (3.5-5.1); TOT PROT 7.7 g/dl (6.4-8.2)
--- NOTE | 2019-05-04 09:38 | CON.GI ---
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: CVA (x 2 2013) Cardio/Vascular: Yes: CHF (diastolic), HTN Gastrointestinal: Yes: Cancer (Colon cancer, in remission) Hepatobiliary: Yes: Cirrhosis, Hepatitis C (with cirrhosis) Rheumatology: Yes: Rheumatoid Arthritis - Past Surgical History Past Surgical History: Yes: Colectomy, Colonoscopy, Hernia Repair, Stent (x 2) - Alcohol/Substance Use Hx Alcohol Use: No History of Substance Use: reports: None - Smoking History Smoking history: Never smoked Have you smoked in the past 12 months: No If you are a former smoker, when did you quit?: 30 years ago - Social History Usual Living Arrangement: With Spouse ADL: Independent History of Recent Travel: No Home Medications - Allergies Allergies/Adverse Reactions: Allergies Allergy/AdvReac Type Severity Reaction Status Date / Time No Known Allergies Allergy Verified 05/03/19 12:21 - Home Medications Home Medications: Ambulatory Orders Amlodipine Besylate [Norvasc -] 10 mg PO DAILY 11/22/18 Aspirin [Aspirin EC] 81 mg PO DAILY 11/22/18 Atorvastatin Ca [Lipitor] 20 mg PO HS 11/22/18 Ergocalciferol (Vitamin D2) [Vitamin D2] 1.25 mg PO WEEKLY 11/22/18 Furosemide [Lasix -] 20 mg PO DAILY 11/22/18 Isosorbide Mononitrate [Imdur -] 30 mg PO DAILY 11/22/18 Losartan Potassium [Cozaar -] 25 mg PO DAILY 11/22/18 Metoprolol Succinate [Toprol Xl] 100 mg PO DAILY 11/22/18 Quetiapine Fumarate [Seroquel -] 25 mg PO HS tablet 03/08/19 Apixaban [Eliquis] 2.5 mg PO HS 05/03/19 Physical Exam-GI Vital Signs: Vital Signs Temperature 97.8 F 05/04/19 06:00 Pulse Rate 78 05/04/19 06:00 Respiratory Rate 20 05/04/19 06:00 Blood Pressure 110/74 05/04/19 06:00 O2 Sat by Pulse Oximetry (%) 98 05/03/19 21:00 Labs: CBC, BMP 05/04/19 07:17 05/04/19 07:17 INR, PTT INR 1.64 (0.83-1.09) H 05/04/19 07:17
[2019-05-04] MEDS ORDERED: FUROSEMIDE 20 MG TABLET (FP) PO SCH (10:00)
--- NOTE | 2019-05-04 10:08 | CON.GI ---
Consult Consult Specialty:: GI: For Dr. Mosqueda Referred by:: Hospitalist Service Reason for Consultation:: Abnormal liver chemistrries - History of Present Illness Chief Complaint: Patient confused: admitted for History of Present Illness: 79M admitted through [facility] for evaluation of CP, cough, and epigastric pain per the admit note. Liver chemistries elevated when compared to 03/13 studies. he currently denies abdominal pain. I spoke with the patient's daughter. He has followed with Dr. Mosqueda given his history of colon cancer and she believes that he performed colonoscopy on him last year. She also states that he has followed with a liver specialist at [facility] given his history of cirrhosis. She had an EGD in [address] Nelida Licea that revealed possible small varices in the distal esophagus. There has been no overt bleeding, nausea , vomiting. He is confused and currently sitting at the nurse's station for closer observation. In review of the [employer] system, quetiapine was added to his medication regimen 03/13. ABD US on admission revealed small amount of perihepatic ascites, no ductal dilatation, cirrhotic appearing liver, diffuse gallbladder wall thickening. he was given feftriaxone in the ER. he has been afebrile, hemodyanmically stable and does not have a leukocytosis. he does have a cough. 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) Cardio/Vascular: Yes: AFIB, CAD, CHF (diastolic), HTN, Other (PPM) Gastrointestinal: Yes: Cancer (Colon cancer, in remission) Hepatobiliary: Yes: Cirrhosis, Hepatitis C (with cirrhosis) Rheumatology: Yes: Rheumatoid Arthritis - Past Surgical History Past Surgical History: Yes: Colectomy, Colonoscopy, Hernia Repair, Stent (x 2) - Alcohol/Substance Use Hx Alcohol Use: No History of Substance Use: reports: None - Smoking History Smoking history: Never smoked Have you smoked in the past 12 months: No If you are a former smoker, when did you quit?: 30 years ago - Social History Usual Living Arrangement: With Spouse ADL: Independent Place of : Other ([place]) History of Recent Travel: No Home Medications - Allergies Allergies/Adverse Reactions: Allergies Allergy/AdvReac Type Severity Reaction Status Date / Time No Known Allergies Allergy Verified 05/03/19 12:21 - Home Medications Home Medications: Ambulatory Orders Amlodipine Besylate [Norvasc -] 10 mg PO DAILY 11/22/18 Aspirin [Aspirin EC] 81 mg PO DAILY 11/22/18 Atorvastatin Ca [Lipitor] 20 mg PO HS 11/22/18 Ergocalciferol (Vitamin D2) [Vitamin D2] 1.25 mg PO WEEKLY 11/22/18 Furosemide [Lasix -] 20 mg PO DAILY 11/22/18 Isosorbide Mononitrate [Imdur -] 30 mg PO DAILY 11/22/18 Losartan Potassium [Cozaar -] 25 mg PO DAILY 11/22/18 Metoprolol Succinate [Toprol Xl] 100 mg PO DAILY 11/22/18 Quetiapine Fumarate [Seroquel -] 25 mg PO HS tablet 03/08/19 Apixaban [Eliquis] 2.5 mg PO HS 05/03/19 Review of Systems - Review of Systems Respiratory: reports: Cough Gastrointestinal: denies: Diarrhea, Dysphagia, Melena, Nausea, Rectal Bleeding Physical Exam-GI Vital Signs: Vital Signs Temperature 97.8 F 05/04/19 06:00 Pulse Rate 78 05/04/19 06:00 Respiratory Rate 05/04/19 06:00 Blood Pressure 110/74 05/04/19 06:00 O2 Sat by Pulse Oximetry (%) 98 05/03/19 21:00 Constitutional: Yes: Calm Eyes: No: Sclera Icterus Cardiovascular: Yes: Regular Rate and Rhythm Respiratory: Yes: Diminished (at bases, poor insp effort) Gastrointestinal Inspection: Yes: Scars (right paramedian vertical abdominopelvic surgical scar.). No: Distention ...Auscultate: Yes: Normoactive Bowel Sounds ...Palpate: Yes: Soft. No: Hepatomegaly, Splenomegaly, Tenderness ...Percussion: No: Tympanitic Edema: No (No LE edema) Labs: CBC, BMP 05/04/19 07:17 05/04/19 07:17 INR, PTT INR 1.64 (0.83-1.09) H 05/04/19 07:17 Problem List - Problems (1) Abnormal liver function tests Assessment/Plan: Unclear etiology. ? medication induced, decompensation of chronic liver disease , component of passive congestion from CHF Denies abdominal pain currently. Diffuse GB wall thickening on US. Suspect secondary to liver dz as opposed to acute cholecystitis Cardiology eval, Echo Obtain HIDA (ordered), Surgical consult Avoid hepatotoxic agents If LFTs continue to rise consider transfer to [facility] where he has received care of liver disease. may need EUS to exclude biliary tract pathology as MRCP cannot be performed here due to PPM. Code(s): R94.5 - ABNORMAL RESULTS OF LIVER FUNCTION STUDIES
--- NOTE | 2019-05-04 10:10 | CONSULT ---
Consult - text type - Consultation Consultation Note: CC urinary retention hpi: 79 yo M PMH CAD, HI (s/p stents x 2), CVA 2x with residual garbled speech, HTN, afib, AICD, hepatitis C cirrhosis, and colon CA s/p resection in 1997, presenting with chest pain for 3 days. Patient was found to have urinary retention with post-void residual urine of about 375 cc. a catheter was placed PE afeb abd- soft nontender without CVAT rectal 2-3 + prostate imp bph retention acute renal injury labs reviewed/renal sono reviewed plan continue flomax 0.4 mg daily d/c milan in 48 hours for trial of voiding
[2019-05-04] MEDS ORDERED: DEXTROSE 5%-WATER - 50 ML IVPB ONE (10:49)
[2019-05-04] MEDS ORDERED: cefTRIAXone SODIUM 1 GM VIAL ONE (10:49)
--- NOTE | 2019-05-04 10:59 | CONSULT ---
Consult Consult Specialty:: Nephrology Reason for Consultation:: LORRAINE - History of Present Illness Chief Complaint: chest pain History of Present Illness: Pt is an 79 year old male with pmhx of htn, HLD, hep c, liver cirrhosis, and cad who presents to the ER with chest pain. He was found to have elevated creatinine and I was called to evaluate him. He was found to have elevated PVR and milan was placed. He is awake and appears comfortable. He denies chest pain at the moment. He denies fevers or chills. 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: CVA (x 2 2014) Cardio/Vascular: Yes: AFIB, CAD, CHF (diastolic), HTN, Other (PPM) Gastrointestinal: Yes: Cancer (Colon cancer, in remission) Hepatobiliary: Yes: Cirrhosis, Hepatitis C (with cirrhosis) Rheumatology: Yes: Rheumatoid Arthritis - Past Surgical History Past Surgical History: Yes: Colectomy, Colonoscopy, Hernia Repair, Stent (x 2) - Alcohol/Substance Use Hx Alcohol Use: No History of Substance Use: reports: None - Smoking History Smoking history: Never smoked Have you smoked in the past 12 months: No If you are a former smoker, when did you quit?: 30 years ago - Social History Usual Living Arrangement: With Spouse ADL: Independent History of Recent Travel: No Home Medications - Allergies Allergies/Adverse Reactions: Allergies Allergy/AdvReac Type Severity Reaction Status Date / Time No Known Allergies Allergy Verified 05/03/19 12:21 - Home Medications Home Medications: Ambulatory Orders Amlodipine Besylate [Norvasc -] 10 mg PO DAILY 11/22/18 Aspirin [Aspirin EC] 81 mg PO DAILY 11/22/18 Atorvastatin Ca [Lipitor] 20 mg PO HS 11/22/18 Ergocalciferol (Vitamin D2) [Vitamin D2] 1.25 mg PO WEEKLY 11/22/18 Furosemide [Lasix -] 20 mg PO DAILY 11/22/18 Isosorbide Mononitrate [Imdur -] 30 mg PO DAILY 11/22/18 Losartan Potassium [Cozaar -] 25 mg PO DAILY 11/22/18 Metoprolol Succinate [Toprol Xl] 100 mg PO DAILY 11/22/18 Quetiapine Fumarate [Seroquel -] 25 mg PO HS tablet 03/08/19 Apixaban [Eliquis] 2.5 mg PO HS 05/03/19 Family Medical History Family History: Denies Review of Systems - Review of Systems Constitutional: reports: Malaise Eyes: reports: No Symptoms HENT: reports: No Symptoms Neck: reports: No Symptoms Cardiovascular: reports: Chest Pain Respiratory: reports: No Symptoms Gastrointestinal: reports: No Symptoms Genitourinary: reports: No Symptoms Musculoskeletal: reports: No Symptoms Integumentary: reports: No Symptoms Neurological: reports: No Symptoms Endocrine: reports: No Symptoms Hematology/Lymphatic: reports: No Symptoms Psychiatric: reports: No Symptoms Physical Exam Vital Signs: Vital Signs Temperature 97.8 F 05/04/19 06:00 Pulse Rate 62 05/04/19 10:00 Respiratory Rate 18 05/04/19 10:00 Blood Pressure 145/77 05/04/19 10:00 O2 Sat by Pulse Oximetry (%) 98 05/03/19 21:00 Constitutional: Yes: Calm Eyes: Yes: Conjunctiva Clear HENT: Yes: Atraumatic Neck: Yes: Supple Cardiovascular: Yes: S1, S2 Respiratory: Yes: CTA Bilaterally Gastrointestinal: Yes: Normal Bowel Sounds, Soft Renal/: Yes: WNL, [place] Present Musculoskeletal: Yes: WNL Edema: LLE: Trace, RLE: Trace Neurological: Yes: Oriented Labs: CBC, BMP 05/04/19 07:17 05/04/19 07:17 Laboratory Tests 05/03/19 05/04/19 13:00 07:17 Creatinine 1.5 H 1.4 H Imaging - Results Chest X-ray: Report Reviewed Ultrasound: Report Reviewed Assessment/Plan Current Medications Generic Name Dose Route Start Last Admin Trade Name Gurwinder PRN Reason Stop Dose Admin Amlodipine Besylate 10 mg 05/04/19 10:00 Norvasc - PO DAILY GLORY Aspirin 81 mg 05/04/19 10:00 Ecotrin - PO DAILY GLORY Docusate Sodium 100 mg 05/04/19 10:00 Colace - PO DAILY GLORY Famotidine 20 mg 05/03/19 22:00 05/03/19 22:32 Pepcid - PO 20 mg BID GLORY Administration Ceftriaxone Sodium 1 gm/ 50 mls @ 100 mls/hr 05/04/19 10:00 Dextrose IVPB DAILY GLORY Isosorbide Mononitrate 30 mg 05/04/19 10:00 Imdur - PO DAILY GLORY Metoprolol Succinate 100 mg 05/04/19 10:00 Toprol Xl - PO DAILY [facility] Polyethylene Glycol 17 gm 05/04/19 10:00 Miralax (For Daily Use) - PO DAILY [facility] Senna 1 tab 05/04/19 22:00 Senna - PO HS [facility] Tamsulosin HCl 0.4 mg 05/04/19 08:30 Flomax - PO DAILY@0830 [facility] Impression 1. LORRAINE 2. UTI 3. cad 4. htn 5. a-fib 6. hep c 7. colon cancer Plan - cont to monitor renal function - urology input appreciated - maintain milan - repeat labs in am - avoid nsaids
[2019-05-04] MEDS: POLYETHYLENE GLYCOL 3350 119 GM BTL PO SCH (11:07)
[2019-05-04] MEDS: ASPIRIN COATED 81 MG TABLET.EC PO SCH (11:07)
[2019-05-04] MEDS: DOCUSATE SODIUM 100 MG CAPSULE (FP) PO SCH (11:07)
[2019-05-04] MEDS: amLODIPine BESYLATE 10 MG TABLET (FP) PO SCH (11:07)
[2019-05-04] MEDS: ISOSORBIDE MONONITRATE 30 MG TAB.SR.24H (FP) PO SCH (11:07)
[2019-05-04] MEDS: APIXABAN 2.5 MG TABLET PO SCH (11:08)
[2019-05-04] MEDS: FAMOTIDINE 20 MG TABLET PO SCH ×2 (11:08→21:11)
[2019-05-04] MEDS: CEFTRIAXONE 1 GM in DEXTROSE 5%-WATER - 50 ML IVPB SCH (11:08)
--- NOTE | 2019-05-04 11:38 | PN ---
Progress Note (short form) - Note Progress Note: history of dementia, liver cirrhosis, statin use , abd us--thickened GB wall normal CBD,minimal ascitis A. elevated liver enzymes secondary to cirrhosis and chronic statin use R> avoid statins AFP level ammonia level await hep profile
--- NOTE | 2019-05-04 13:18 | PN ---
Teaching Attending Note Name of Resident: Ganesh Kumar ATTENDING PHYSICIAN STATEMENT I saw and evaluated the patient. I reviewed the resident's note and discussed the case with the resident. I agree with the resident's findings and plan as documented. SUBJECTIVE: Pakistani phone used: [phone]. despite that patient is a poor historian, and might be confused. he reports abd pain, and ? dysuria. NO CP or SOB. denies BURTON . He reports no GI bleed. he reports 3 EGDs [place]. he follows with GI in [facility], not sure of name or contact. HE does not know what his meds are. Will reach out to family for more detailed hx per student, indicated confusion OBJECTIVE: NAD. awake, alert, cooperative. MMM, jaundiced, icteric sclera. no facial droop. CV: RRR, no MRG Lungs: CTAB Abd: distended, soft, TTP in all quadrants. liver is percussed 2 cm below costal margin but not palpated. + shifting dullness . Ext : + asterexis . no edema on LE . no TTP over chest wall or shoulder ASSESSMENT AND PLAN: 79 y/o man with h/o P AFib/A flutter s/p ablation 2013, PPM, diastolic CHF, colon cancer, HTN, Hep C , cirrhosis, Not sure of h/o CAD,Not sure of GI bleed in past who presented with Cp and confusion 1- Confusion 2- Cirrhosis, worsening LFTS. 3- Abd pain . 4- Dysuria. 5- LORRAINE. 6- H/o A fib /aflutter s/p ablation 7- H/o diastolic heart failure 8- L renal cyst on US plan : - with confusion , and asterexis , there is concern for hepatic encephalopathy. will get ammonia level - in setting of generalized abd pain, and ascitis and confusion , SBP needs to be r/o. - will get PAracentesis through IR. - cont Ceftriaxone for now, not clear if he has UTI. follow urine cx. - patient does not look volume depleted. not sure of LORRAINE reason, ? retention. no hydronephrosis on US, but post void residual of 330 cc. slightly responded to a liter of IVF in ER. hold diuretics for now. - Obtain post void bladder scan. if retaining will get milan in - consult renal due to concern for hepato renal syndrome - appreciate card help and investigation: h/o A flutter, started on eliquis in 03/13, kept on asa. no h/o CAD in last card note. today dose of eliquis was decreased to 2.5 BId. Hold temporarily pending IR drainage of ascitis. will resume afterwards. Not clear of h/o GI bleed. - stop ASA per card. will speak to her out pt card and try to figure out if he had CAD. - LFTS are higher than normal. US with CBD of 0.3 cm. I do not suspect obstruction. worsening of LFTS might be due to cirrhosis. tylenol level low. Not clear if he is an active drinker, will confirm with family. - out pt f/u for the renal cyst.
--- NOTE | 2019-05-04 13:46 | EKG ---
Test Reason : Blood Pressure : / mmHG Vent. Rate : 060 BPM Atrial Rate : 057 BPM P-R Int : 000 ms QRS Dur : 198 ms QT Int : 508 ms P-R-T Axes : 000 -84 094 degrees QTc Int : 508 ms Ventricular-paced rhythm Underlying atrial fibrillation Confirmed by GEORGE GRUBBS MD ([id number]) on 05/04/2019 1:45:34 PM Referred By: Confirmed By:GEORGE GRUBBS MD
--- NOTE | 2019-05-04 14:37 | PN ---
Progress Note (short form) - Note Progress Note: Larissa held for planned US guided paracentesis. Medical team to speak with family to clarify the hx of CAD and prior PCI ( Discussed with resident who is calling family). Would d/c ASA if no prior CAD/PCI. Remainder of plan as outlined in AM consult.
--- NOTE | 2019-05-04 18:20 | PN ---
Physical Exam: SUBJECTIVE: Patient seen and examined O/N: agitated and pulled on IV line Complains of mild Right-sided abd pain. Had 3d of burning pain w/ urination prior to admission. 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 No acute distress. HEAD: Normal with no signs of trauma. EYES: extraocular movements intact, sclera icteric, conjunctiva clear. No ptosis. ENT: Ears normal, nares patent, oropharynx clear without exudates, moist mucous membranes. NECK: Trachea midline, full range of motion, supple. LUNGS: Breath sounds equal, mild b/l crackles, no accessory muscle use. HEART: Regular rate and rhythm, S1, S2 without murmur, rub or gallop. ABDOMEN: Distended w/ midline surgical scar, shifting dullness, mild ascites. Soft, nontender, normoactive bowel sounds, no guarding, no rebound. EXTREMITIES: 2+ pulses, warm, well-perfused, no edema. NEUROLOGICAL: Cranial nerves II through XII grossly intact. Normal speech, unsteady gait. PSYCH: Normal mood, normal affect. SKIN: Warm, dry, mild jaundice Laboratory Results - last 24 hr 05/04/19 05/04/19 05/04/19 00:00 00:00 07:17 WBC 6.1 RBC 5.30 Hgb 14.8 Hct 45.1 MCV 85.1 MCH 27.9 MCHC 32.7 RDW 15.7 Plt Count 94 L MPV 10.7 Absolute Neuts (auto) 4.7 Neutrophils % 76.9 Lymphocytes % 12.6 Monocytes % 8.3 Eosinophils % 1.1 Basophils % 1.1 Nucleated RBC % 0 PT with INR INR Sodium Potassium Chloride Carbon Dioxide Anion Gap BUN Creatinine Est GFR (CKD-EPI)AfAm Est GFR (CKD-EPI)NonAf Random Glucose Hemoglobin A1c % Calcium Total Bilirubin Direct Bilirubin AST ALT Alkaline Phosphatase Ammonia Troponin I 0.05 Total Protein Albumin Triglycerides Cholesterol Total LDL Cholesterol HDL Cholesterol Vitamin B12 TSH Acetaminophen <2.0 RPR Titer 05/04/19 05/04/19 05/04/19 07:17 07:17 07:17 WBC RBC Hgb Hct MCV MCH MCHC RDW Plt Count MPV Absolute Neuts (auto) Neutrophils % Lymphocytes % Monocytes % Eosinophils % Basophils % Nucleated RBC % PT with INR 19.40 H INR 1.64 H Sodium 138 Potassium 4.8 Chloride 108 H Carbon Dioxide 20 L Anion Gap 10 BUN 29.0 H Creatinine 1.4 H Est GFR (CKD-EPI)AfAm 54.22 Est GFR (CKD-EPI)NonAf 46.79 Random Glucose 105 Hemoglobin A1c % 5.4 Calcium 9.9 Total Bilirubin 2.5 H Direct Bilirubin 1.6 H AST 119 H ALT 124 H Alkaline Phosphatase 499 H Ammonia Troponin I Total Protein 7.7 Albumin 3.5 Triglycerides 100 Cholesterol 132 Total LDL Cholesterol 70 HDL Cholesterol 42 Vitamin B12 4791 H TSH 1.71 D Acetaminophen RPR Titer 05/04/19 05/04/19 05/04/19 07:17 07:17 12:06 WBC RBC Hgb Hct MCV MCH MCHC RDW Plt Count MPV Absolute Neuts (auto) Neutrophils % Lymphocytes % Monocytes % Eosinophils % Basophils % Nucleated RBC % PT with INR INR Sodium Potassium Chloride Carbon Dioxide Anion Gap BUN Creatinine Est GFR (CKD-EPI)AfAm Est GFR (CKD-EPI)NonAf Random Glucose Hemoglobin A1c % Calcium Total Bilirubin Direct Bilirubin AST ALT Alkaline Phosphatase Ammonia Troponin I 0.05 0.06 H Total Protein Albumin Triglycerides Cholesterol Total LDL Cholesterol HDL Cholesterol Vitamin B12 TSH Acetaminophen RPR Titer Nonreactive 05/04/19 12:06 WBC RBC Hgb Hct MCV MCH MCHC RDW Plt Count MPV Absolute Neuts (auto) Neutrophils % Lymphocytes % Monocytes % Eosinophils % Basophils % Nucleated RBC % PT with INR INR Sodium Potassium Chloride Carbon Dioxide Anion Gap BUN Creatinine Est GFR (CKD-EPI)AfAm Est GFR (CKD-EPI)NonAf Random Glucose Hemoglobin A1c % Calcium Total Bilirubin Direct Bilirubin AST ALT Alkaline Phosphatase Ammonia 26.70 Troponin I Total Protein Albumin Triglycerides Cholesterol Total LDL Cholesterol HDL Cholesterol Vitamin B12 TSH Acetaminophen RPR Titer Active Medications Generic Name Dose Route Start Last Admin Trade Name Freq PRN Reason Stop Dose Admin Amlodipine Besylate 10 mg 05/04/19 10:00 05/04/19 11:07 Norvasc - PO 10 mg DAILY GLORY Administration Aspirin 81 mg 05/04/19 10:00 05/04/19 11:07 Ecotrin - PO Not Given DAILY GLORY Docusate Sodium 100 mg 05/04/19 10:00 05/04/19 11:07 Colace - PO 100 mg DAILY GLORY Administration Famotidine 20 mg 05/03/19 22:00 05/04/19 11:08 Pepcid - PO 20 mg BID GLORY Administration Ceftriaxone Sodium 1 gm/ 50 mls @ 100 mls/hr 05/04/19 10:00 05/04/19 11:08 Dextrose IVPB 100 mls/hr DAILY GLORY Administration Isosorbide Mononitrate 30 mg 05/04/19 10:00 05/04/19 11:07 Imdur - PO 30 mg DAILY GLORY Administration Metoprolol Succinate 100 mg 05/04/19 10:00 05/04/19 11:07 Toprol Xl - PO 100 mg DAILY GLORY Administration Polyethylene Glycol 17 gm 05/04/19 10:00 05/04/19 11:07 Miralax (For Daily Use) - PO 17 grams DAILY GLORY Administration Senna 1 tab 05/04/19 22:00 Senna - PO HS GLORY ASSESSMENT/PLAN: 79 M h/o ?CAD(?s/p stenting), aflutter s/p abalation + PPM, HTN, HLD, ?Hep c liver cirrhosis, colon Ca(s/p hemicolectomy), presented with abd pain w/a abdominal distension, also had complaint of burning pain w/ urination, chronic shoulder pain, chronic neck pain, chest pain. Complaints likely 2/2 to acutely decompensated liver disease. # Chest pain > Troponin 0.03, 0.05, 0.05 > EKG: ventricular paced - cardio(Francescone) consult: --rec stopping ASA if no h/o stent --pt is at-risk for bleeding --records pending from Dr. Polanco to confri ([phone]) --outpt stress test #? CAD s/p stent placement - no [place] or stent as per family - records pending from Dr. Polanco ([phone]) - resume BB, hold statin in view of transaminitis, ARB, ASA, AC # Transaminitis --likely 2/2 decompensated cirrhosis > Jaki B > Tbil 2.5, Dbil 1.6 > AST/ALT: 126/128, 119/124 > Ammonia 26.7 > Hep panel --pending > RUQ US(1/9/20): diffuse GB wall thickening, CBD 0.3cm, perihepatic ascites > HIDA --pending - abx regimen: UTI tx and empiric SBP --ceftriaxone --day#2 - IR paracentesis(diagnostic) --Eliquis held on 05/04/19, possible paracentesis on 05/07/19 -GI consult(DiG): --rec HIDA --rec Surg consult --if rising LFTs, consider transfer to [facility](pt gets care there) -GI consult(Lantin): --AFP level #GB wall thickening --possibly 2/2 cirrhosis, less likely cholecystitis > HIDA pending # UTI --symptomatic > UA: nitrite +, bilirubin 2+ > UCX(05/03/19): NGTD - ceftriaxone # LORRAINE --possibly 2/2 hepatorenal vs urinary retention # Urinary retention > Cr(baseline ~1.0) 1.5, 1.4 > Renal US(05/03/19): no hydronephrosis, PVR ~330, Left renal cyst 2.7cm - Nephro([facility]) consult: --trend lytes - Uro([facility]) consult: --flomax 0.4mg QD --dc Wu in 48hs(~05/05/19) # chronic dementia --baseline A&Ox1 > ammonia 26.7 - monitor for delirium vs hepatic encephalopathy # chronic dyslipidemia -hold statin in view of hepatic injury # HTN - restart home BP meds when appriopriate #DVT ppx: - Eliquis(held) for 05/07/19 IR paracentesis #FEN: - diabetic/sodium diet #GI PPX: Famotidine #DISPO: - tele Visit type - Emergency Visit Emergency Visit: No - New Patient This patient is new to me today: Yes Date on this admission: 05/04/19 - Critical Care Critical Care patient: No ATTENDING PHYSICIAN STATEMENT I saw and evaluated the patient. I reviewed the resident's note and discussed the case with the resident. I agree with the resident's findings and plan as documented. SUBJECTIVE: OBJECTIVE: ASSESSMENT AND PLAN:
[2019-05-04] MEDS: SENNOSIDES 8.6MG TABLET (FP) PO SCH (21:11)
[2019-05-04] MEDS: QUEtiapine FUMARATE 25 MG TABLET PO SCH (21:11)
[2019-05-04] MEDS ORDERED: MELATONIN 5 MG TABLETS PO ONE (22:35)
[2019-05-05 07:07] LABS: HEMATOCRIT 41.2 % (35.4-49); HEMOGLOBIN 13.4 GM/dL (11.7-16.9); MCH 27.6 pg (25.7-33.7); MCHC 32.5 g/dl (32.0-35.9); MEAN CELL VOLUME 85.1 fl (80-96); MEAN PLT VOLUME 11.8 fl (7.5-11.1); PLATELET COUNT 73 K/MM3 (134-434); RBC 4.84 M/mm3 (4.00-5.60); RDW 15.9 % (11.9-15.9); WHITE BLOOD COUNT 5.7 K/mm3 (4.0-10.0)
[2019-05-05 07:11] LABS: ALBUMIN 2.8 g/dl (3.4-5.0); BILIRUBIN,DIRECT 1.6 mg/dL (0.0-0.2); BILIRUBIN,TOTAL 2.5 mg/dL (0.2-1); BLOOD UREA NITROGEN 32.3 mg/dL (7-18); CALCIUM 9.7 mg/dL (8.5-10.1); CREATININE 1.4 mg/dL (0.55-1.3); MAGNESIUM 2.1 mg/dL (1.8-2.4); PHOSPHOROUS 2.9 mg/dL (2.5-4.9); POTASSIUM 4.9 mmol/L (3.5-5.1); TOT PROT 6.4 g/dl (6.4-8.2)
--- NOTE | 2019-05-05 07:50 | PN ---
Physical Exam: SUBJECTIVE: Patient seen and examined at bedside. No new complaints, no events overnight. OBJECTIVE: Vital Signs Period Temp Pulse Resp BP Sys/Rain Pulse Ox Last 24 Hr 98.2 F-99.1 F 58-68 18-18 108-145/54-78 94 GENERAL: The patient is awake, alert, and fully oriented, in no acute distress. HEAD: Normal with no signs of trauma. NECK: Trachea midline, full range of motion, supple. LUNGS: Breath sounds equal, clear to auscultation bilaterally, no wheezes, no crackles, no accessory muscle use. HEART: Regular rate and rhythm, S1, S2 without murmur, rub or gallop. ABDOMEN: Soft, nontender, distended EXTREMITIES: 2+ pulses, warm, well-perfused, no edema. NEUROLOGICAL: Cranial nerves II through X grossly intact. Normal speech, gait not observed. SKIN: Warm, dry, normal turgor, no rashes or lesions noted Laboratory Results - last 24 hr 05/04/19 05/04/19 05/04/19 07:17 07:17 07:17 WBC 6.1 RBC 5.30 Hgb 14.8 Hct 45.1 MCV 85.1 MCH 27.9 MCHC 32.7 RDW 15.7 Plt Count 94 L MPV 10.7 Absolute Neuts (auto) 4.7 Neutrophils % 76.9 Lymphocytes % 12.6 Monocytes % 8.3 Eosinophils % 1.1 Basophils % 1.1 Nucleated RBC % 0 PT with INR 19.40 H INR 1.64 H Sodium 138 Potassium 4.8 Chloride 108 H Carbon Dioxide 20 L Anion Gap 10 BUN 29.0 H Creatinine 1.4 H Est GFR (CKD-EPI)AfAm 54.22 Est GFR (CKD-EPI)NonAf 46.79 Random Glucose 105 Hemoglobin A1c % Calcium 9.9 Phosphorus Magnesium Total Bilirubin 2.5 H Direct Bilirubin 1.6 H AST 119 H ALT 124 H Alkaline Phosphatase 499 H Ammonia Troponin I Total Protein 7.7 Albumin 3.5 Triglycerides 100 Cholesterol 132 Total LDL Cholesterol 70 HDL Cholesterol 42 Vitamin B12 4791 H TSH 1.71 D RPR Titer 05/04/19 05/04/19 05/04/19 07:17 07:17 07:17 WBC RBC Hgb Hct MCV MCH MCHC RDW Plt Count MPV Absolute Neuts (auto) Neutrophils % Lymphocytes % Monocytes % Eosinophils % Basophils % Nucleated RBC % PT with INR INR Sodium Potassium Chloride Carbon Dioxide Anion Gap BUN Creatinine Est GFR (CKD-EPI)AfAm Est GFR (CKD-EPI)NonAf Random Glucose Hemoglobin A1c % 5.4 Calcium Phosphorus Magnesium Total Bilirubin Direct Bilirubin AST ALT Alkaline Phosphatase Ammonia Troponin I 0.05 Total Protein Albumin Triglycerides Cholesterol Total LDL Cholesterol HDL Cholesterol Vitamin B12 TSH RPR Titer Nonreactive 05/04/19 05/04/19 05/05/19 12:06 12:06 05:49 WBC 5.7 RBC 4.84 Hgb 13.4 Hct 41.2 MCV 85.1 MCH 27.6 MCHC 32.5 RDW 15.9 Plt Count 73 L D MPV 11.8 H D Absolute Neuts (auto) Neutrophils % Lymphocytes % Monocytes % Eosinophils % Basophils % Nucleated RBC % PT with INR INR Sodium Potassium Chloride Carbon Dioxide Anion Gap BUN Creatinine Est GFR (CKD-EPI)AfAm Est GFR (CKD-EPI)NonAf Random Glucose Hemoglobin A1c % Calcium Phosphorus Magnesium Total Bilirubin Direct Bilirubin AST ALT Alkaline Phosphatase Ammonia 26.70 Troponin I 0.06 H Total Protein Albumin Triglycerides Cholesterol Total LDL Cholesterol HDL Cholesterol Vitamin B12 TSH RPR Titer 05/05/19 05:49 WBC RBC Hgb Hct MCV MCH MCHC RDW Plt Count MPV Absolute Neuts (auto) Neutrophils % Lymphocytes % Monocytes % Eosinophils % Basophils % Nucleated RBC % PT with INR INR Sodium 137 Potassium 4.9 Chloride 107 Carbon Dioxide 24 Anion Gap 6 L BUN 32.3 H Creatinine 1.4 H Est GFR (CKD-EPI)AfAm 54.22 Est GFR (CKD-EPI)NonAf 46.79 Random Glucose 105 Hemoglobin A1c % Calcium 9.7 Phosphorus 2.9 Magnesium 2.1 Total Bilirubin 2.5 H Direct Bilirubin 1.6 H AST 99 H ALT 101 H Alkaline Phosphatase 411 H Ammonia Troponin I Total Protein 6.4 Albumin 2.8 L Triglycerides Cholesterol Total LDL Cholesterol HDL Cholesterol Vitamin B12 TSH RPR Titer Active Medications Generic Name Dose Route Start Last Admin Trade Name Freq PRN Reason Stop Dose Admin Amlodipine Besylate 10 mg 05/04/19 10:00 05/04/19 11:07 Norvasc - PO 10 mg DAILY GL[facility] Administration Aspirin 81 mg 05/04/19 10:00 05/04/19 11:07 Ecotrin - PO Not Given DAILY GLORY Docusate Sodium 100 mg 05/04/19 10:00 05/04/19 11:07 Colace - PO 100 mg DAILY [facility] Administration Famotidine 20 mg 05/03/19 22:00 05/04/19 21:11 Pepcid - PO 20 mg BID [facility] Administration Ceftriaxone Sodium 1 gm/ 50 mls @ 100 mls/hr 05/04/19 10:00 05/04/19 11:08 Dextrose IVPB 100 mls/hr DAILY [facility] Administration Isosorbide Mononitrate 30 mg 05/04/19 10:00 05/04/19 11:07 Imdur - PO 30 mg DAILY [facility] Administration Metoprolol Succinate 100 mg 05/04/19 10:00 05/04/19 11:07 Toprol Xl - PO 100 mg DAILY [facility] Administration Polyethylene Glycol 17 gm 05/04/19 10:00 05/04/19 11:07 Miralax (For Daily Use) - PO 17 grams DAILY [facility] Administration Quetiapine Fumarate 25 mg 05/04/19 22:00 05/04/19 21:11 Seroquel - PO 25 mg HS [facility] Administration Senna 1 tab 05/04/19 22:00 05/04/19 21:11 Senna - PO 1 tab HS [facility] Administration ASSESSMENT/PLAN: 79 M h/o ?CAD(?s/p stenting), aflutter s/p abalation + PPM, HTN, HLD, ?Hep c liver cirrhosis, colon Ca(s/p hemicolectomy), presented with abd pain w/ abdominal distension, also had complaint of burning pain w/ urination, chronic shoulder pain, chronic neck pain, chest pain. Complaints likely 2/2 to acutely decompensated liver disease. # Chest pain -Troponin remains stable at 0.05 -EKG w/o change - cardio(Francescone) consult: -less likely ACS -monitor #? CAD s/p stent placement - records pending from Dr. Polanco ([phone]) - resume BB, hold statin in view of transaminitis, ARB, ASA, AC # Transaminitis --likely 2/2 decompensated cirrhosis - Jaki B - Tbil, Dbil stable - AST/ALT trending down - Hep panel --pending - RUQ US(05/03/19): diffuse GB wall thickening, CBD 0.3cm, perihepatic ascites - HIDA --pending - abx regimen: UTI tx and empiric SBP -ceftriaxone --day#3 - IR paracentesis(diagnostic) -scheduled paracentesis for 05/07/19; eliquis on hold -GI consult(DiG): -rec HIDA -rec Surg consult #GB wall thickening --possibly 2/2 cirrhosis, less likely cholecystitis - HIDA pending # UTI -symptomatic - UA: nitrite +, bilirubin 2+ - UCX(05/03/19): NGTD - ceftriaxone # LORRAINE --possibly 2/2 hepatorenal vs urinary retention - Cr(baseline ~1.0) 1.5, 1.4 - Renal US(05/03/19): no hydronephrosis, PVR ~330, Left renal cyst 2.7cm - Nephro(Zev) onboard - Uro([facility]) consult: -flomax 0.4mg QD # chronic dementia --baseline A&Ox1 - monitor for delirium vs hepatic encephalopathy # chronic dyslipidemia -hold statin in view of hepatic injury # HTN - restart home BP meds when appriopriate #DVT ppx: - Eliquis(held) for 05/07/19 IR paracentesis #FEN: -no fluids indicated -lytes WNL -diabetic/sodium diet #GI PPX: Famotidine #DISPO: - tele Visit type - Emergency Visit Emergency Visit: Yes ED Registration Date: 05/03/19 Care time: The patient presented to the Emergency Department on the above date and was hospitalized for further evaluation of their emergent condition. - New Patient This patient is new to me today: Yes Date on this admission: 05/06/19 - Critical Care Critical Care patient: No ATTENDING PHYSICIAN STATEMENT I saw and evaluated the patient. I reviewed the resident's note and discussed the case with the resident. I agree with the resident's findings and plan as documented. SUBJECTIVE: OBJECTIVE: ASSESSMENT AND PLAN:
[2019-05-05 07:54] LABS: INR 1.55 (0.83-1.09); PROTHROMBIN TIME (PATIENT) 18.4 SEC (9.7-13.0)
[2019-05-05] MEDS ORDERED: cefTRIAXone SODIUM 1 GM VIAL ONE (10:33)
[2019-05-05] MEDS ORDERED: DEXTROSE 5%-WATER - 50 ML IVPB ONE (10:33)
[2019-05-05] MEDS: amLODIPine BESYLATE 10 MG TABLET (FP) PO SCH (11:08)
[2019-05-05] MEDS: ISOSORBIDE MONONITRATE 30 MG TAB.SR.24H (FP) PO SCH (11:08)
[2019-05-05] MEDS: FAMOTIDINE 20 MG TABLET PO SCH ×2 (11:08→22:56)
[2019-05-05] MEDS: POLYETHYLENE GLYCOL 3350 119 GM BTL PO SCH (11:08)
[2019-05-05] MEDS: CEFTRIAXONE 1 GM in DEXTROSE 5%-WATER - 50 ML IVPB SCH (11:08)
[2019-05-05] MEDS: DOCUSATE SODIUM 100 MG CAPSULE (FP) PO SCH (11:08)
--- NOTE | 2019-05-05 12:47 | PN ---
Progress Note (short form) - Note Progress Note: s: no chest pain, palps, dizziness, dyspnea. stable abd pain. Current Medications Amlodipine Besylate (Norvasc -) 10 mg PO DAILY [facility] Last Admin: 05/05/19 11:08 Dose: 10 mg Aspirin (Ecotrin -) 81 mg PO DAILY [facility] Last Admin: 05/04/19 11:07 Dose: Not Given Docusate Sodium (Colace -) 100 mg PO DAILY [facility] Last Admin: 05/05/19 11:08 Dose: 100 mg Famotidine (Pepcid -) 20 mg PO BID [facility] Last Admin: 05/05/19 11:08 Dose: 20 mg Ceftriaxone Sodium 1 gm/ (Dextrose) 50 mls @ 100 mls/hr IVPB DAILY [facility] Last Admin: 05/05/19 11:08 Dose: 100 mls/hr Isosorbide Mononitrate (Imdur -) 30 mg PO DAILY [facility] Last Admin: 05/05/19 11:08 Dose: 30 mg Metoprolol Succinate (Toprol Xl -) 100 mg PO DAILY [facility] Last Admin: 05/05/19 11:08 Dose: 100 mg Polyethylene Glycol (Miralax (For Daily Use) -) 17 gm PO DAILY [facility] Last Admin: 05/05/19 11:08 Dose: 17 grams Quetiapine Fumarate (Seroquel -) 25 mg PO HS [facility] Last Admin: 05/04/19 21:11 Dose: 25 mg Senna (Senna -) 1 tab PO HS [facility] Last Admin: 05/04/19 21:11 Dose: 1 tab Vital Signs Period Temp Pulse Resp BP Sys/Rain Pulse Ox Last 24 Hr 98.2 F-99.1 F 58-68 18-18 108-136/54-78 94 Constitutional: Yes: No Distress, Calm Respiratory: Yes: CTA Bilaterally Gastrointestinal: Yes: Soft, Abdomen, Obese, Other (distended.) Cardiovascular: Yes: Regular Rate and Rhythm (paced.) JVD: No Carotid Bruit: No PMI: Non-Displaced Heart Sounds: Yes: S1, S2 (RRR.) Edema: No Peripheral Pulses WNL: Yes no jaundice, diaphoresis not agitated tele: AF, [employer] Assessment/Plan IMP: Hep C, cirrhosis Thrombocytopenia History of Colon Cancer PAF s/p PPM Aflutter s/p ablation 2013 CAD s/p PCI Acute renal insufficiency Transaminitis Abdominal pain Atypical Chest pain REC: - tele unremarkable, trop neg x 4. less likely ACS. - holding eliquis for paracentesis - given his h/o Cirrhosis/thrombocytopenia would need to use caution in intermediate accountant ASA + NOAC therapy as he is likely at elevated risk for GI bleeding. Defer this decision to his primary liver team and primary outpatient charge operator - would dc aspirin if no prior CAD or PCI - Outpatient stress test if not recently done - sees Dr. Phan at [facility] - Cont home BP meds and Toprol for rate control. - GI following
[2019-05-05] MEDS: ASPIRIN COATED 81 MG TABLET.EC PO SCH (14:27)
--- NOTE | 2019-05-05 15:29 | PN ---
Teaching Attending Note Name of Resident: Chidi Donahue ATTENDING PHYSICIAN STATEMENT I saw and evaluated the patient. I reviewed the resident's note and discussed the case with the resident. I agree with the resident's findings and plan as documented. SUBJECTIVE: Confused , in hallway. prosthodontist/owner phone could not be used due to no cooperation . RN Domingo, helped with translation denies any pain . no SOB . no cough. was agitated an confused over night per team d/w family, he is normally confused and gets more confused at night OBJECTIVE: NAD. awake, alert, cooperative. MMM, jaundiced, icteric sclera. no facial droop. CV: RRR, no MRG Lungs: CTAB Abd: distended, soft, minimal TTP in all quadrants. liver is percussed 2 cm below costal margin but not palpated. Ext : no edema on LE . ASSESSMENT AND PLAN: 79 y/o man with h/o P AFib/A flutter s/p ablation 2013, PPM, diastolic CHF, colon cancer, HTN, Hep C , cirrhosis, Not sure of h/o CAD,Not sure of GI bleed in past who presented with Cp and confusion 1- Acute delirium, on a back ground of possible dementia 2- Cirrhosis, worsening LFTS. 3- Abd pain . 4- Dysuria. neg urine cx. No UTI 5- LORRAINE. due to urinary retention. low suspicion for hepatorenal syndrome . stable cr 6- H/o A fib /aflutter s/p ablation 7- H/o diastolic heart failure 8- L renal cyst on US Plan : - No signs of hepatic encephalopathy - dc Abx due to neg urine cx taken before any Abx prescription - paracentesis on Tuesday - cont to hold eliquis - cont ASA for now. records form Dr. thomson were requested, will review. if no h/ o stenting. will dc asa - out pt f/u with card/manager marketing sales regarding final decision on AC - contt o hold diuretics for now . Monitor renal function . renal input - cont milan . - LFTS improved. monitor closely - monitor acute delirium . fall precautions - out pt f/u for the renal cyst. - cont metoprolol, imdur, and norvasc - PT eval - add sq heparin temporarily while off AC
--- NOTE | 2019-05-05 16:32 | PN ---
Progress Note, Physician History of Present Illness: Pt seen and examined at bedside. He is awake and appears comfortable. - Current Medication List Current Medications: Active Medications Amlodipine Besylate (Norvasc -) 10 mg PO DAILY [facility] Last Admin: 05/05/19 11:08 Dose: 10 mg Aspirin (Ecotrin -) 81 mg PO DAILY [facility] Last Admin: 05/05/19 14:27 Dose: 81 mg Docusate Sodium (Colace -) 100 mg PO DAILY [facility] Last Admin: 05/05/19 11:08 Dose: 100 mg Famotidine (Pepcid -) 20 mg PO BID [facility] Last Admin: 05/05/19 11:08 Dose: 20 mg Furosemide (Lasix -) 20 mg PO DAILY [facility] Heparin Sodium (Porcine) (Heparin -) 5,000 unit SQ TID [facility] Stop: 05/06/19 23:00 Ceftriaxone Sodium 1 gm/ (Dextrose) 50 mls @ 100 mls/hr IVPB DAILY [facility] Last Admin: 05/05/19 11:08 Dose: 100 mls/hr Isosorbide Mononitrate (Imdur -) 30 mg PO DAILY [facility] Last Admin: 05/05/19 11:08 Dose: 30 mg Metoprolol Succinate (Toprol Xl -) 100 mg PO DAILY [facility] Last Admin: 05/05/19 11:08 Dose: 100 mg Polyethylene Glycol (Miralax (For Daily Use) -) 17 gm PO DAILY [facility] Last Admin: 05/05/19 11:08 Dose: 17 grams Quetiapine Fumarate (Seroquel -) 25 mg PO [facility] Last Admin: 05/04/19 21:11 Dose: 25 mg Senna (Senna -) 1 tab PO [facility] Last Admin: 05/04/19 21:11 Dose: 1 tab - Objective Vital Signs: Vital Signs Temperature 98.5 F 05/05/19 14:00 Pulse Rate 58 L 05/05/19 14:00 Respiratory Rate 20 05/05/19 14:00 Blood Pressure 134/60 05/05/19 14:00 O2 Sat by Pulse Oximetry (%) 95 05/05/19 09:00 Constitutional: Yes: Calm Eyes: Yes: Conjunctiva Clear HENT: Yes: Atraumatic Cardiovascular: Yes: S1, S2 Respiratory: Yes: CTA Bilaterally Gastrointestinal: Yes: Soft, Distention Genitourinary: Yes: WNL Musculoskeletal: Yes: WNL Edema: No Neurological: Yes: Other (awake) Labs: CBC, BMP 05/05/19 05:49 05/05/19 05:49 INR, PTT INR 1.55 (0.83-1.09) H 05/05/19 05:49 Assessment/Plan Current Medications Generic Name Dose Route Start Last Admin Trade Name Niranjanq PRN Reason Stop Dose Admin Amlodipine Besylate 10 mg 05/04/19 10:00 05/05/19 11:08 Norvasc - PO 10 mg DAILY [facility] Administration Aspirin 81 mg 05/04/19 10:00 05/05/19 14:27 Ecotrin - PO 81 mg DAILY [facility] Administration Docusate Sodium 100 mg 05/04/19 10:00 05/05/19 11:08 Colace - PO 100 mg DAILY [facility] Administration Famotidine 20 mg 05/03/19 22:00 05/05/19 11:08 Pepcid - PO 20 mg BID [facility] Administration Furosemide 20 mg 05/06/19 10:00 Lasix - PO DAILY [facility] Heparin Sodium (Porcine) 5,000 unit 05/05/19 22:00 Heparin - SQ 05/06/19 23:00 TID GLORY Ceftriaxone Sodium 1 gm/ 50 mls @ 100 mls/hr 05/04/19 10:00 05/05/19 11:08 Dextrose IVPB 100 mls/hr DAILY [facility] Administration Isosorbide Mononitrate 30 mg 05/04/19 10:00 05/05/19 11:08 Imdur - PO 30 mg DAILY [facility] Administration Metoprolol Succinate 100 mg 05/04/19 10:00 05/05/19 11:08 Toprol Xl - PO 100 mg DAILY [facility] Administration Polyethylene Glycol 17 gm 05/04/19 10:00 05/05/19 11:08 Miralax (For Daily Use) - PO 17 grams DAILY [facility] Administration Quetiapine Fumarate 25 mg 05/04/19 22:00 05/04/19 21:11 Seroquel - PO 25 mg HS [facility] Administration Senna 1 tab 05/04/19 22:00 05/04/19 21:11 Senna - PO 1 tab HS [facility] Administration Impression 1. LORRAINE 2. UTI 3. cad 4. htn 5. a-fib 6. hep c 7. colon cancer Plan - repeat labs in am - resume lasix - monitor volume status - maintain milan - avoid nsaids
[2019-05-05] MEDS ORDERED: ACETAMINOPHEN 325 MG TABLET (FP) PO ONE (17:10)
[2019-05-05] MEDS: QUEtiapine FUMARATE 25 MG TABLET PO SCH (22:53)
[2019-05-05] MEDS: SENNOSIDES 8.6MG TABLET (FP) PO SCH (22:53)
[2019-05-05] MEDS: HEPARIN NA (PORCINE) 5,000 UNITS/ML 1ML VIAL SQ SCH (22:56)
[2019-05-06] MEDS: HEPARIN NA (PORCINE) 5,000 UNITS/ML 1ML VIAL SQ SCH ×3 (06:34→21:46)
[2019-05-06 07:38] LABS: ALBUMIN 2.6 g/dl (3.4-5.0); BILIRUBIN,TOTAL 3.3 mg/dL (0.2-1); BLOOD UREA NITROGEN 37.3 mg/dL (7-18); CALCIUM 9.9 mg/dL (8.5-10.1); CREATININE 1.4 mg/dL (0.55-1.3); POTASSIUM 4.8 mmol/L (3.5-5.1); TOT PROT 6.4 g/dl (6.4-8.2)
[2019-05-06] MEDS ORDERED: cefTRIAXone SODIUM 1 GM VIAL ONE (09:26)
[2019-05-06] MEDS ORDERED: DEXTROSE 5%-WATER - 50 ML IVPB ONE (09:27)
[2019-05-06] MEDS: CEFTRIAXONE 1 GM in DEXTROSE 5%-WATER - 50 ML IVPB SCH (09:43)
[2019-05-06] MEDS: amLODIPine BESYLATE 10 MG TABLET (FP) PO SCH (09:44)
[2019-05-06] MEDS: POLYETHYLENE GLYCOL 3350 119 GM BTL PO SCH (09:44)
[2019-05-06] MEDS: ISOSORBIDE MONONITRATE 30 MG TAB.SR.24H (FP) PO SCH (09:44)
[2019-05-06] MEDS: ASPIRIN COATED 81 MG TABLET.EC PO SCH (09:44)
[2019-05-06] MEDS: DOCUSATE SODIUM 100 MG CAPSULE (FP) PO SCH (09:44)
[2019-05-06] MEDS: FUROSEMIDE 20 MG TABLET (FP) PO SCH (09:44)
[2019-05-06] MEDS: FAMOTIDINE 20 MG TABLET PO SCH ×2 (09:44→21:45)
--- NOTE | 2019-05-06 11:56 | PN ---
Progress Note (short form) - Note Progress Note: s: no chest pain, palps, dizziness, dyspnea. abd pain improving Current Medications Amlodipine Besylate (Norvasc -) 10 mg PO DAILY [facility] Last Admin: 05/06/19 09:44 Dose: 10 mg Aspirin (Ecotrin -) 81 mg PO DAILY [facility] Last Admin: 05/06/19 09:44 Dose: 81 mg Docusate Sodium (Colace -) 100 mg PO DAILY [facility] Last Admin: 05/06/19 09:44 Dose: 100 mg Famotidine (Pepcid -) 20 mg PO BID [facility] Last Admin: 05/06/19 09:44 Dose: 20 mg Furosemide (Lasix -) 20 mg PO DAILY [facility] Last Admin: 05/06/19 09:44 Dose: 20 mg Heparin Sodium (Porcine) (Heparin -) 5,000 unit SQ TID [facility] Stop: 05/06/19 23:00 Last Admin: 05/06/19 06:34 Dose: 5,000 unit Ceftriaxone Sodium 1 gm/ (Dextrose) 50 mls @ 100 mls/hr IVPB DAILY [facility] Last Admin: 05/06/19 09:43 Dose: 100 mls/hr Isosorbide Mononitrate (Imdur -) 30 mg PO DAILY [facility] Last Admin: 05/06/19 09:44 Dose: 30 mg Metoprolol Succinate (Toprol Xl -) 100 mg PO DAILY [facility] Last Admin: 05/06/19 09:43 Dose: 100 mg Polyethylene Glycol (Miralax (For Daily Use) -) 17 gm PO DAILY [facility] Last Admin: 05/06/19 09:44 Dose: 17 grams Quetiapine Fumarate (Seroquel -) 25 mg PO [facility] Last Admin: 05/05/19 22:53 Dose: 25 mg Senna (Senna -) 1 tab PO [facility] Last Admin: 05/05/19 22:53 Dose: 1 tab . 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 less likely ACS. - holding eliquis for paracentesis - given his h/o Cirrhosis/thrombocytopenia would need to use caution in usp ASA + NOAC therapy as he is likely at elevated risk for GI bleeding. Defer this decision to his primary liver team and primary outpatient lift slab operator - would dc aspirin if no prior CAD or PCI - Outpatient stress test if not recently done - sees Dr. Phan at [facility] - Cont home BP meds and Toprol for rate control. - GI following dc tele
--- NOTE | 2019-05-06 15:10 | PN ---
Progress Note, Physician History of Present Illness: Pt seen and examined at bedside. He is awake and appears comfortable. - Current Medication List Current Medications: Active Medications Amlodipine Besylate (Norvasc -) 10 mg PO DAILY [facility] Last Admin: 05/06/19 09:44 Dose: 10 mg Aspirin (Ecotrin -) 81 mg PO DAILY [facility] Last Admin: 05/06/19 09:44 Dose: 81 mg Docusate Sodium (Colace -) 100 mg PO DAILY [facility] Last Admin: 05/06/19 09:44 Dose: 100 mg Famotidine (Pepcid -) 20 mg PO BID [facility] Last Admin: 05/06/19 09:44 Dose: 20 mg Furosemide (Lasix -) 20 mg PO DAILY [facility] Last Admin: 05/06/19 09:44 Dose: 20 mg Heparin Sodium (Porcine) (Heparin -) 5,000 unit SQ TID [facility] Stop: 05/06/19 23:00 Last Admin: 05/06/19 13:41 Dose: 5,000 unit Ceftriaxone Sodium 1 gm/ (Dextrose) 50 mls @ 100 mls/hr IVPB DAILY [facility] Last Admin: 05/06/19 09:43 Dose: 100 mls/hr Isosorbide Mononitrate (Imdur -) 30 mg PO DAILY [facility] Last Admin: 05/06/19 09:44 Dose: 30 mg Metoprolol Succinate (Toprol Xl -) 100 mg PO DAILY [facility] Last Admin: 05/06/19 09:43 Dose: 100 mg Polyethylene Glycol (Miralax (For Daily Use) -) 17 gm PO DAILY [facility] Last Admin: 05/06/19 09:44 Dose: 17 grams Quetiapine Fumarate (Seroquel -) 25 mg PO [facility] Last Admin: 05/05/19 22:53 Dose: 25 mg Senna (Senna -) 1 tab PO [facility] Last Admin: 05/05/19 22:53 Dose: 1 tab - Objective Vital Signs: Vital Signs Temperature 97.7 F 05/06/19 10:00 Pulse Rate 62 05/06/19 10:00 Respiratory Rate 22 H 05/06/19 10:00 Blood Pressure 104/52 L 05/06/19 10:00 O2 Sat by Pulse Oximetry (%) 93 L 05/05/19 20:37 Constitutional: Yes: Calm Eyes: Yes: Conjunctiva Clear HENT: Yes: Atraumatic Neck: Yes: Supple Cardiovascular: Yes: S1, S2 Respiratory: Yes: CTA Bilaterally Gastrointestinal: Yes: Normal Bowel Sounds, Soft, Ascites, Distention Genitourinary: Yes: WNL Musculoskeletal: Yes: WNL Extremities: Yes: WNL Edema: No Integumentary: Yes: WNL Neurological: Yes: Oriented Labs: CBC, BMP 05/05/19 05:49 05/06/19 06:35 INR, PTT INR 1.55 (0.83-1.09) H 05/05/19 05:49 Assessment/Plan Current Medications Generic Name Dose Route Start Last Admin Trade Name Freq PRN Reason Stop Dose Admin Amlodipine Besylate 10 mg 05/04/19 10:00 05/06/19 09:44 Norvasc - PO 10 mg DAILY [facility] Administration Aspirin 81 mg 05/04/19 10:00 05/06/19 09:44 Ecotrin - PO 81 mg DAILY [facility] Administration Docusate Sodium 100 mg 05/04/19 10:00 05/06/19 09:44 Colace - PO 100 mg DAILY [facility] Administration Famotidine 20 mg 05/03/19 22:00 05/06/19 09:44 Pepcid - PO 20 mg BID [facility] Administration Furosemide 20 mg 05/06/19 10:00 05/06/19 09:44 Lasix - PO 20 mg DAILY [facility] Administration Heparin Sodium (Porcine) 5,000 unit 05/05/19 22:00 05/06/19 13:41 Heparin - SQ 05/06/19 23:00 5,000 unit TID [facility] Administration Ceftriaxone Sodium 1 gm/ 50 mls @ 100 mls/hr 05/04/19 10:00 05/06/19 09:43 Dextrose IVPB 100 mls/hr DAILY [facility] Administration Isosorbide Mononitrate 30 mg 05/04/19 10:00 05/06/19 09:44 Imdur - PO 30 mg DAILY [facility] Administration Metoprolol Succinate 100 mg 05/04/19 10:00 05/06/19 09:43 Toprol Xl - PO 100 mg DAILY [facility] Administration Polyethylene Glycol 17 gm 05/04/19 10:00 05/06/19 09:44 Miralax (For Daily Use) - PO 17 grams DAILY [facility] Administration Quetiapine Fumarate 25 mg 05/04/19 22:00 05/05/19 22:53 Seroquel - PO 25 mg HS [facility] Administration Senna 1 tab 05/04/19 22:00 05/05/19 22:53 Senna - PO 1 tab HS [facility] Administration Impression 1. LORRAINE 2. UTI 3. cad 4. htn 5. a-fib 6. hep c 7. colon cancer Plan - cont lasix - cardio input appreciated - monitor volume status - maintain milan - avoid nsaids
--- NOTE | 2019-05-06 17:35 | PN ---
Progress Note (short form) - Note Progress Note: Subjective: cont to have abd pain . spoke to through bioinformatics programmer lesli [phone]. patient is not cooperative with phone she says patient is normally confused, but now more confused than before . Objective: Vital Signs: Last Vital Signs Temp Pulse Resp BP Pulse Ox 99.6 F 59 L 22 H 93/55 L 95 05/06/19 14:00 05/06/19 14:00 05/06/19 10:00 05/06/19 14:00 05/06/19 09:00 Laboratory Results - last 24 hr 05/04/19 05/05/19 05/06/19 11:38 05:49 06:35 Sodium 138 Potassium 4.8 Chloride 108 H Carbon Dioxide 23 Anion Gap 7 L BUN 37.3 H Creatinine 1.4 H Est GFR (CKD-EPI)AfAm 54.22 Est GFR (CKD-EPI)NonAf 46.79 Random Glucose 89 Calcium 9.9 Total Bilirubin 3.3 H AST 122 H ALT 108 H Alkaline Phosphatase 424 H Troponin I 0.05 Total Protein 6.4 Albumin 2.6 L Tumor Marker AFP 6.7 Physical Exam: NAD. awake, alert, cooperative. MMM, jaundiced, icteric sclera. no facial droop. CV: RRR, no MRG Lungs: CTAB Abd: distended, soft, minimal TTP in all quadrants. liver is percussed 2 cm below costal margin but not palpated. Ext: no edema on LE . ASSESSMENT AND PLAN: 79 y/o man with h/o P AFib/A flutter s/p ablation 2013, PPM, diastolic CHF, colon cancer, HTN, Hep C , cirrhosis, Not sure of h/o CAD,Not sure of GI bleed in past who presented with Cp and confusion 1- Acute delirium, on a back ground of possible dementia 2- Cirrhosis, worsening LFTS. 3- Abd pain . 4- Dysuria. neg urine cx. No UTI 5- LORRAINE. due to urinary retention. low suspicion for hepatorenal syndrome . stable cr 6- H/o A fib /aflutter s/p ablation 7- H/o diastolic heart failure 8- L renal cyst on US Plan : - LFTs are worse today. GI input - paracentesis on Tuesday. will do therapeutic and diagnostic as renal function is stable and renal does not think he has hepatorenal sx - cont diuresis - cont to hold eliquis till after the paracentesis - cont ASA for now. records form Dr. Chapman were requested, will review. if no h/ o stenting. will dc asa - out pt f/u with card/monument carver regarding final decision on AC - voiding trial today. dc milan - monitor acute delirium. fall precautions - out pt f/u for the renal cyst. - cont metoprolol, imdur, and norvasc - PT eval - hold heparin after MN for paracentesis tomorrow dispo : HLOC Visit type - Emergency Visit Emergency Visit: Yes ED Registration Date: 05/03/19 Care time: The patient presented to the Emergency Department on the above date and was hospitalized for further evaluation of their emergent condition. - New Patient This patient is new to me today: No - Critical Care Critical Care patient: No
[2019-05-06] MEDS: SENNOSIDES 8.6MG TABLET (FP) PO SCH (21:45)
[2019-05-06] MEDS: QUEtiapine FUMARATE 25 MG TABLET PO SCH (21:46)
[2019-05-07 07:01] LABS: BASO % 1.7 % (0-2.0); HEMATOCRIT 46.6 % (35.4-49); HEMOGLOBIN 15.3 GM/dL (11.7-16.9); LYMPH % 19.6 % (8-40); MCH 28.2 pg (25.7-33.7); MCHC 32.8 g/dl (32.0-35.9); MEAN CELL VOLUME 85.9 fl (80-96); MEAN PLT VOLUME 11.5 fl (7.5-11.1); MONO % 12.3 % (3.8-10.2); NEUT % 64.4 % (42.8-82.8); PLATELET COUNT 79 K/MM3 (134-434); RBC 5.42 M/mm3 (4.00-5.60); RDW 15.9 % (11.9-15.9); WHITE BLOOD COUNT 5.7 K/mm3 (4.0-10.0)
[2019-05-07 08:57] LABS: ALBUMIN 3.1 g/dl (3.4-5.0); BILIRUBIN,TOTAL 3.9 mg/dL (0.2-1); BLOOD UREA NITROGEN 36.7 mg/dL (7-18); CREATININE 1.4 mg/dL (0.55-1.3); MAGNESIUM 2.2 mg/dL (1.8-2.4); PHOSPHOROUS 2.9 mg/dL (2.5-4.9); POTASSIUM 4.7 mmol/L (3.5-5.1); TOT PROT 7.3 g/dl (6.4-8.2)
--- NOTE | 2019-05-07 08:59 | PN ---
Progress Note, Physician History of Present Illness: GI FOLLOW UP NOTE Patient examined and case discussed with Dr Mosqueda Patient is alert and awake, oriented x 2. Complains of diffuse abdominal pain. Denies nausea, vomiting, diarrhea, constipation, rectal bleeding, melena. Labs showing uptrent in LFTs, pending todays results. Hepatitis profile results pending. - Current Medication List Current Medications: Active Medications Amlodipine Besylate (Norvasc -) 10 mg PO DAILY [facility] Last Admin: 05/06/19 09:44 Dose: 10 mg Aspirin (Ecotrin -) 81 mg PO DAILY [facility] Last Admin: 05/06/19 09:44 Dose: 81 mg Docusate Sodium (Colace -) 100 mg PO DAILY [facility] Last Admin: 05/06/19 09:44 Dose: 100 mg Famotidine (Pepcid -) 20 mg PO BID [facility] Last Admin: 05/06/19 21:45 Dose: 20 mg Furosemide (Lasix -) 20 mg PO DAILY [facility] Last Admin: 05/06/19 09:44 Dose: 20 mg Isosorbide Mononitrate (Imdur -) 30 mg PO DAILY [facility] Last Admin: 05/06/19 09:44 Dose: 30 mg Metoprolol Succinate (Toprol Xl -) 100 mg PO DAILY [facility] Last Admin: 05/06/19 09:43 Dose: 100 mg Polyethylene Glycol (Miralax (For Daily Use) -) 17 gm PO DAILY [facility] Last Admin: 05/06/19 09:44 Dose: 17 grams Quetiapine Fumarate (Seroquel -) 25 mg PO [facility] Last Admin: 05/06/19 21:46 Dose: 25 mg Senna (Senna -) 1 tab PO [facility] Last Admin: 05/06/19 21:45 Dose: 1 tab - Objective Vital Signs: Vital Signs Temperature 98.2 F 05/07/19 06:00 Pulse Rate 60 05/07/19 06:00 Respiratory Rate 20 05/07/19 06:00 Blood Pressure 140/73 05/07/19 06:00 O2 Sat by Pulse Oximetry (%) 93 L 05/06/19 21:00 Constitutional: Yes: No Distress, Calm Eyes: Yes: Conjunctiva Clear HENT: Yes: Atraumatic Cardiovascular: Yes: Regular Rate and Rhythm Respiratory: Yes: Regular, CTA Bilaterally Gastrointestinal: Yes: Normal Bowel Sounds, Soft, Ascites, Tenderness (diffuse) Neurological: Yes: Alert, Oriented Psychiatric: Yes: Alert, Oriented Labs: CBC, BMP 05/07/19 06:25 INR, PTT INR 1.55 (0.83-1.09) H 05/05/19 05:49 Problem List - Problems (1) Abnormal liver function tests Assessment/Plan: >monitor LFTs daily >current LFTs showing uptrend >consult cardiology for possible change of BP med by discontinuing Norvasc and beginning on different medication >spoke with patient daughter Kim Arana in regards to fathers liver condition, she states she does not know the name of the Liver Specialist her father saw at [facility] and the last time he was there was 3 years ago, instructed daughter to bring information from liver specialist from home for Hospitalist to view >Abdominal US shows hepatic cirrhosis, increased diffuse gallbladder wall thickening which is probably second to hepatic disease and less likely on basis of acute cholecystitis >IR consult pending for paracentesis today >HIDA scan ordered for gallbladder wall thickening Code(s): R94.5 - ABNORMAL RESULTS OF LIVER FUNCTION STUDIES
[2019-05-07] MEDS: FAMOTIDINE 20 MG TABLET PO SCH ×2 (09:37→21:31)
[2019-05-07] MEDS: DOCUSATE SODIUM 100 MG CAPSULE (FP) PO SCH (09:37)
[2019-05-07] MEDS: amLODIPine BESYLATE 10 MG TABLET (FP) PO SCH (13:51)
[2019-05-07] MEDS: FUROSEMIDE 20 MG TABLET (FP) PO SCH (13:51)
[2019-05-07] MEDS: ISOSORBIDE MONONITRATE 30 MG TAB.SR.24H (FP) PO SCH (13:51)
[2019-05-07] MEDS: POLYETHYLENE GLYCOL 3350 119 GM BTL PO SCH (13:52)
[2019-05-07] MEDS: ASPIRIN COATED 81 MG TABLET.EC PO SCH (13:52)
--- NOTE | 2019-05-07 14:35 | PN ---
Progress Note, Physician History of Present Illness: Pt seen and examined at bedside. He went - Current Medication List Current Medications: Active Medications Amlodipine Besylate (Norvasc -) 10 mg PO DAILY [facility] Last Admin: 05/07/19 13:51 Dose: 10 mg Aspirin (Ecotrin -) 81 mg PO DAILY [facility] Last Admin: 05/07/19 13:52 Dose: 81 mg Docusate Sodium (Colace -) 100 mg PO DAILY [facility] Last Admin: 05/07/19 09:37 Dose: 100 mg Famotidine (Pepcid -) 20 mg PO BID [facility] Last Admin: 05/07/19 09:37 Dose: 20 mg Furosemide (Lasix -) 20 mg PO DAILY [facility] Last Admin: 05/07/19 13:51 Dose: 20 mg Isosorbide Mononitrate (Imdur -) 30 mg PO DAILY [facility] Last Admin: 05/07/19 13:51 Dose: 30 mg Metoprolol Succinate (Toprol Xl -) 100 mg PO DAILY [facility] Last Admin: 05/07/19 13:51 Dose: 100 mg Polyethylene Glycol (Miralax (For Daily Use) -) 17 gm PO DAILY [facility] Last Admin: 05/07/19 13:52 Dose: Not Given Quetiapine Fumarate (Seroquel -) 25 mg PO [facility] Last Admin: 05/06/19 21:46 Dose: 25 mg Senna (Senna -) 1 tab PO [facility] Last Admin: 05/06/19 21:45 Dose: 1 tab - Objective Vital Signs: Vital Signs Temperature 98.2 F 05/07/19 06:00 Pulse Rate 60 05/07/19 06:00 Respiratory Rate 20 05/07/19 06:00 Blood Pressure 140/73 05/07/19 06:00 O2 Sat by Pulse Oximetry (%) 93 L 05/06/19 21:00 Constitutional: Yes: Calm Eyes: Yes: Conjunctiva Clear HENT: Yes: Atraumatic Cardiovascular: Yes: S1, S2 Respiratory: Yes: CTA Bilaterally Gastrointestinal: Yes: Normal Bowel Sounds, Soft, Ascites, Distention Genitourinary: Yes: WNL Musculoskeletal: Yes: WNL Edema: LLE: Trace, RLE: Trace Integumentary: Yes: WNL Neurological: Yes: Other (awake) Labs: CBC, BMP 05/07/19 06:25 05/07/19 06:25 INR, PTT INR 1.55 (0.83-1.09) H 05/05/19 05:49 Problem List - Problems (1) LORRAINE (acute kidney injury) Code(s): N17.9 - ACUTE KIDNEY FAILURE, UNSPECIFIED (2) Transaminitis Code(s): R74.0 - NONSPEC ELEV OF LEVELS OF TRANSAMNS & LACTIC ACID DEHYDRGNSE Assessment/Plan Current Medications Generic Name Dose Route Start Last Admin Trade Name Gurwinder PRN Reason Stop Dose Admin Amlodipine Besylate 10 mg 05/04/19 10:00 05/07/19 13:51 Norvasc - PO 10 mg DAILY [facility] Administration Aspirin 81 mg 05/04/19 10:00 05/07/19 13:52 Ecotrin - PO 81 mg DAILY [facility] Administration Docusate Sodium 100 mg 05/04/19 10:00 05/07/19 09:37 Colace - PO 100 mg DAILY [facility] Administration Famotidine 20 mg 05/03/19 22:00 05/07/19 09:37 Pepcid - PO 20 mg BID [facility] Administration Furosemide 20 mg 05/06/19 10:00 05/07/19 13:51 Lasix - PO 20 mg DAILY [facility] Administration Isosorbide Mononitrate 30 mg 05/04/19 10:00 05/07/19 13:51 Imdur - PO 30 mg DAILY [facility] Administration Metoprolol Succinate 100 mg 05/04/19 10:00 05/07/19 13:51 Toprol Xl - PO 100 mg DAILY [facility] Administration Polyethylene Glycol 17 gm 05/04/19 10:00 05/07/19 13:52 Miralax (For Daily Use) - PO Not Given DAILY [facility] Quetiapine Fumarate 25 mg 05/04/19 22:00 05/06/19 21:46 Seroquel - PO 25 mg HS [facility] Administration Senna 1 tab 05/04/19 22:00 05/06/19 21:45 Senna - PO 1 tab HS [facility] Administration Impression 1. LORRAINE 2. UTI 3. cad 4. htn 5. a-fib 6. hep c 7. colon cancer Plan - cont lasix - s/p paracentesis, he had 810 cc of fluid removed - monitor urine output - monitor renal function closely - GI follow up - avoid nsaids
[2019-05-07 15:29] LABS: BF WBC & OTHER NUCLEATED CELLS 545 /mm3
--- NOTE | 2019-05-07 16:21 | PN ---
Progress Note (short form) - Note Progress Note: s: no chest pain, palps, dizziness, dyspnea. s/p paracentesis today, 810 cc removed Current Medications Amlodipine Besylate (Norvasc -) 10 mg PO DAILY [facility] Last Admin: 05/07/19 13:51 Dose: 10 mg Aspirin (Ecotrin -) 81 mg PO DAILY [facility] Last Admin: 05/07/19 13:52 Dose: 81 mg Docusate Sodium (Colace -) 100 mg PO DAILY [facility] Last Admin: 05/07/19 09:37 Dose: 100 mg Famotidine (Pepcid -) 20 mg PO BID [facility] Last Admin: 05/07/19 09:37 Dose: 20 mg Furosemide (Lasix -) 20 mg PO DAILY [facility] Last Admin: 05/07/19 13:51 Dose: 20 mg Isosorbide Mononitrate (Imdur -) 30 mg PO DAILY [facility] Last Admin: 05/07/19 13:51 Dose: 30 mg Metoprolol Succinate (Toprol Xl -) 100 mg PO DAILY [facility] Last Admin: 05/07/19 13:51 Dose: 100 mg Polyethylene Glycol (Miralax (For Daily Use) -) 17 gm PO DAILY [facility] Last Admin: 05/07/19 13:52 Dose: Not Given Quetiapine Fumarate (Seroquel -) 25 mg PO [facility] Last Admin: 05/06/19 21:46 Dose: 25 mg Senna (Senna -) 1 tab PO [facility] Last Admin: 05/06/19 21:45 Dose: 1 tab . Vital Signs Period Temp Pulse Resp BP Sys/Rain Pulse Ox Last 24 Hr 98.0 F-99.8 F 58-62 20-20 105-144/50-76 93 Constitutional: Yes: No Distress, Calm Respiratory: Yes: CTA Bilaterally Gastrointestinal: Yes: Soft, Abdomen, Obese, Other (distended.) Cardiovascular: Yes: Regular Rate and Rhythm (paced.) JVD: No Carotid Bruit: No PMI: Non-Displaced Heart Sounds: Yes: S1, S2 (RRR.) Edema: No Peripheral Pulses WNL: Yes no jaundice, diaphoresis not agitated tele: AF, [employer], episode of NSVT 12 bt and 3 bt Assessment/Plan IMP: Hep C, cirrhosis Thrombocytopenia History of Colon Cancer PAF s/p PPM Aflutter s/p ablation 2013 CAD s/p PCI Acute renal insufficiency Transaminitis Abdominal pain Atypical Chest pain NSVT REC: - trop neg x 4. less likely ACS. - episode NSVT - nl EF on echo 11/2018, replete lytes for K>4, Mg>2, cont tele monitoring for now, cont metoprolol - holding eliquis - s/p paracentesis today. plan for possible transfer to [facility] for further workup, manage per GI - given his h/o Cirrhosis/thrombocytopenia would need to use caution in alf ASA + NOAC therapy as he is likely at elevated risk for GI bleeding. 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 Phan at [facility] - Cont home BP meds and Toprol for rate control.
[2019-05-07 16:24] LABS: BODY FLUID MACROPHAGES 2 %; BODY FLUID MONOCYTE 27 %
--- NOTE | 2019-05-07 19:30 | PN ---
Physical Exam: SUBJECTIVE: Patient seen and examined O/N: agitated, was on [place] Endorses improvement in abd pain-distension OBJECTIVE: Vital Signs Period Temp Pulse Resp BP Sys/Rain Pulse Ox Last 24 Hr 98.0 F-99.8 F 58-62 20-20 105-144/50-76 93-94 GENERAL: The patient is awake, alert, oriented to name, city. No acute distress. HEAD: Normal with no signs of trauma. EYES: extraocular movements intact, mild sclera icteric, conjunctiva clear. No ptosis. ENT: Ears normal, nares patent, oropharynx clear without exudates, moist mucous membranes. NECK: Trachea midline, full range of motion, supple. LUNGS: Breath sounds equal, mild b/l crackles, no accessory muscle use. HEART: Regular rate and rhythm, S1, S2 without murmur, rub or gallop. ABDOMEN: Distended w/ midline surgical scar, shifting dullness, mild ascites. Soft, nontender, normoactive bowel sounds, no guarding, no rebound. EXTREMITIES: 2+ pulses, warm, well-perfused, no edema. NEUROLOGICAL: Normal speech, unsteady gait. PSYCH: Normal mood, normal affect. SKIN: Warm, dry, mild jaundice Laboratory Results - last 24 hr 05/07/19 05/07/19 05/07/19 06:25 06:25 14:00 WBC 5.7 RBC 5.42 Hgb 15.3 Hct 46.6 MCV 85.9 MCH 28.2 MCHC 32.8 RDW 15.9 Plt Count 79 L MPV 11.5 H Absolute Neuts (auto) 3.6 Neutrophils % 64.4 Lymphocytes % 19.6 D Monocytes % 12.3 H Eosinophils % 2.0 D Basophils % 1.7 Nucleated RBC % 0 Sodium 138 Potassium 4.7 Chloride 108 H Carbon Dioxide 24 Anion Gap 7 L BUN 36.7 H Creatinine 1.4 H Est GFR (CKD-EPI)AfAm 54.22 Est GFR (CKD-EPI)NonAf 46.79 Random Glucose 94 Calcium 10.0 Phosphorus 2.9 Magnesium 2.2 Total Bilirubin 3.9 H AST 133 H ALT 117 H Alkaline Phosphatase 469 H Total Protein 7.3 Albumin 3.1 L Fluid Source Peritoneal Fluid WBC 545 Fluid RBC 210[address] Fluid Neutrophils 23 Fluid Lymphocytes 47 Pleural Monocytes 27 Pleural Macrophages 2 Active Medications Generic Name Dose Route Start Last Admin Trade Name Gurwinder PRN Reason Stop Dose Admin Amlodipine Besylate 10 mg 05/04/19 10:00 05/07/19 13:51 Norvasc - PO 10 mg DAILY [facility] Administration Docusate Sodium 100 mg 05/04/19 10:00 05/07/19 09:37 Colace - PO 100 mg DAILY [facility] Administration Famotidine 20 mg 05/03/19 22:00 05/07/19 09:37 Pepcid - PO 20 mg BID [facility] Administration Furosemide 20 mg 05/06/19 10:00 05/07/19 13:51 Lasix - PO 20 mg DAILY [facility] Administration Isosorbide Mononitrate 30 mg 05/04/19 10:00 05/07/19 13:51 Imdur - PO 30 mg DAILY [facility] Administration Metoprolol Succinate 100 mg 05/04/19 10:00 05/07/19 13:51 Toprol Xl - PO 100 mg DAILY [facility] Administration Polyethylene Glycol 17 gm 05/04/19 10:00 05/07/19 13:52 Miralax (For Daily Use) - PO Not Given [facility]ILY [facility] Quetiapine Fumarate 25 mg 05/04/19 22:00 05/06/19 21:46 Seroquel - PO 25 mg HS [facility] Administration Senna 1 tab 05/04/19 22:00 05/06/19 21:45 Senna - PO 1 tab HS [facility] Administration ASSESSMENT/PLAN: 79 M h/o ?CAD(?s/p stenting), aflutter s/p abalation + PPM, HTN, HLD, ?Hep c liver cirrhosis, colon Ca(s/p hemicolectomy), presented with abd pain w/a abdominal distension, also had complaint of burning pain w/ urination, chronic shoulder pain, chronic neck pain, chest pain. Complaints likely 2/2 to acutely decompensated liver disease. Elevated LFTs, bilirubin possibly 2/2 worsening liver function. # Chest pain > Troponin 0.03, 0.05, 0.05 > EKG: ventricular paced - cardio(Francescone) consult: --rec stopping ASA if no h/o stent --pt is at-risk for bleeding --records pending from Dr. Polanco to [facility] ([phone] and [phone] ) --no h/o stent as per Dr Polanco --ASA dc'd, can also dc'd Eliquis --outpt stress test #? CAD s/p stent placement - no DE or stent as per family - records pending from Dr. Polanco ([phone]/ [phone]) --no h/o stent as per Dr Polanco --ASA dc'd, can also dc'd Eliquis - resume BB, hold statin in view of transaminitis, ARB, ASA, AC # Transaminitis --likely 2/2 decompensated cirrhosis --increasing in severity > Jaki B > Tbil 2.5, Dbil 1.6... 3.9 > AST/ALT: 126/128, 119/124 ... 133/117 > Ammonia 26.7 > Hep panel --pending > RUQ US(05/03/19): diffuse GB wall thickening, CBD 0.3cm, perihepatic ascites > HIDA --pending - abx regimen: UTI tx and empiric SBP --ceftriaxone --day#4 --stopped on day 4 - IR paracentesis(diagnostic) --Eliquis held on 05/04/19 --s/p paracentesis w/ 810cc of cloudy fluid drained ---cytology pending -GI consult(DiG): --rec HIDA --rec Surg consult --if rising LFTs, consider transfer to [facility](pt gets care there) -GI consult([place]): --AFP level: 6.7 #GB wall thickening --possibly 2/2 cirrhosis, less likely cholecystitis > HIDA pending # UTI --symptomatic > UA: nitrite +, bilirubin 2+ > UCX(05/03/19): NGTD - ceftriaxone --stopped on HD #4 # LORRAINE --possibly 2/2 hepatorenal vs urinary retention # Urinary retention > Cr(baseline ~1.0) 1.5, 1.4 > Renal US(05/03/19): no hydronephrosis, PVR ~330, Left renal cyst 2.7cm - Nephro([facility]) consult: --trend lytes - Uro([facility]) consult: --flomax 0.4mg QD --dc Wu in 48hs(~05/05/19) # chronic dementia --baseline A&Ox1 > ammonia 26.7 - monitor for delirium vs hepatic encephalopathy # chronic dyslipidemia -hold statin in view of hepatic injury # HTN - restart home BP meds when appriopriate #DVT ppx: - Eliquis(held) for 05/07/19 IR paracentesis #FEN: - diabetic/sodium diet #GI PPX: Famotidine #DISPO: - tele Visit type - Emergency Visit Emergency Visit: No - New Patient This patient is new to me today: No - Critical Care Critical Care patient: No ATTENDING PHYSICIAN STATEMENT I saw and evaluated the patient. I reviewed the resident's note and discussed the case with the resident. I agree with the resident's findings and plan as documented. SUBJECTIVE: OBJECTIVE: ASSESSMENT AND PLAN:
--- NOTE | 2019-05-07 19:43 | PN ---
Teaching Attending Note Name of Resident: Ganesh Kumar ATTENDING PHYSICIAN STATEMENT I saw and evaluated the patient. I reviewed the resident's note and discussed the case with the resident. I agree with the resident's findings and plan as documented. SUBJECTIVE: No fever or chills. abd pain. no diarrhea. Daughter at bedside and helped with info. Dr. Lorenzo who speak fluent Korean helped with translation OBJECTIVE: NAD. awake, alert, cooperative. MMM, jaundiced, icteric sclera. no facial droop. CV: RRR, no MRG Lungs: CTAB Abd: distended, soft, minimal TTP in all quadrants. liver is percussed 2 cm below costal margin but not palpated. Ext: no edema on LE . ASSESSMENT AND PLAN: 79 y/o man with h/o P AFib/A flutter s/p ablation 2013, PPM, diastolic CHF, colon cancer, HTN, Hep C , cirrhosis, Not sure of h/o CAD,Not sure of GI bleed in past who presented with Cp and confusion 1- Acute delirium, on a back ground of possible dementia 2- Cirrhosis, worsening LFTS. 3- Abd pain . 4- Dysuria. neg urine cx. No UTI 5- LORRAINE. due to urinary retention. low suspicion for hepatorenal syndrome . stable cr 6- H/o A fib /aflutter s/p ablation 7- H/o diastolic heart failure 8- L renal cyst on US Plan : - s/p large volume paracentecis today 8 L removed - give albumin 25%, 6 g/L of fluid removed - fluid analysis does not indicate SBP - cx sent - LFTs cont to worsen. - dc norvasc and monitor BP - cont diuresis - resume eliquis - team spoke to dr. Chapman, he has no h/o stents or CAD. will stop asa due to increased risk of bleed on eliquis and asa in this cirrhotic patient - out pt f/u for the renal cyst. - cont metoprolol, imdur - PT eval dispo : team spoke to medicine service at [facility]. possible transfer to [facility] after d/w live team there. will follow up .
[2019-05-07] MEDS ORDERED: ALBUMIN HUMAN 25% 12.5 GM/50 ML VIAL IVPB ONE (20:00)
[2019-05-07] MEDS: APIXABAN 2.5 MG TABLET PO SCH (21:31)
[2019-05-07] MEDS: SENNOSIDES 8.6MG TABLET (FP) PO SCH (21:32)
[2019-05-07] MEDS: QUEtiapine FUMARATE 25 MG TABLET PO SCH (21:32)
[2019-05-07 22:06] LABS: HEP B CORE AB, TOT Negative (Negative)
[2019-05-08 07:26] LABS: HEMATOCRIT 42.8 % (35.4-49); HEMOGLOBIN 14.2 GM/dL (11.7-16.9); MCH 28.3 pg (25.7-33.7); MCHC 33.2 g/dl (32.0-35.9); MEAN CELL VOLUME 85.2 fl (80-96); MEAN PLT VOLUME 11.3 fl (7.5-11.1); PLATELET COUNT 71 K/MM3 (134-434); RBC 5.02 M/mm3 (4.00-5.60); RDW 15.4 % (11.9-15.9)
[2019-05-08 08:13] LABS: ALBUMIN 3.6 g/dl (3.4-5.0); BILIRUBIN,TOTAL 4.4 mg/dL (0.2-1); BLOOD UREA NITROGEN 32.5 mg/dL (7-18); CREATININE 1.2 mg/dL (0.55-1.3); MAGNESIUM 2.2 mg/dL (1.8-2.4); PHOSPHOROUS 2.7 mg/dL (2.5-4.9); POTASSIUM 4.6 mmol/L (3.5-5.1); TOT PROT 7.2 g/dl (6.4-8.2)
--- NOTE | 2019-05-08 09:01 | PN ---
Progress Note, Physician History of Present Illness: GI FOLLOW UP NOTE Patient examined and case discussed with Dr Mosqueda Patient is alert and awake, oriented x 2. He is s/p paracentesis with IR on where 810cc of fluid removed. Complains of mild diffuse abdominal, denies nausea, vomiting. Denies diarrhea, constipation, rectal bleeding, melena , blood in stool. Labs beginning to show downtrend in LFTs but still remain elevated. - Current Medication List Current Medications: Active Medications Apixaban (Eliquis -) 2.5 mg PO BID [facility] Last Admin: 05/07/19 21:31 Dose: 2.5 mg Docusate Sodium (Colace -) 100 mg PO DAILY [facility] Last Admin: 05/07/19 09:37 Dose: 100 mg Famotidine (Pepcid -) 20 mg PO BID [facility] Last Admin: 05/07/19 21:31 Dose: 20 mg Furosemide (Lasix -) 20 mg PO DAILY [facility] Last Admin: 05/07/19 13:51 Dose: 20 mg Isosorbide Mononitrate (Imdur -) 30 mg PO DAILY [facility] Last Admin: 05/07/19 13:51 Dose: 30 mg Metoprolol Succinate (Toprol Xl -) 100 mg PO DAILY [facility] Last Admin: 05/07/19 13:51 Dose: 100 mg Polyethylene Glycol (Miralax (For Daily Use) -) 17 gm PO DAILY [facility] Last Admin: 05/07/19 13:52 Dose: Not Given Quetiapine Fumarate (Seroquel -) 25 mg PO [facility] Last Admin: 05/07/19 21:32 Dose: 25 mg Senna (Senna -) 1 tab PO [facility] Last Admin: 05/07/19 21:32 Dose: 1 tab - Objective Vital Signs: Vital Signs Temperature 98.9 F 05/08/19 05:20 Pulse Rate 60 05/08/19 05:20 Respiratory Rate 18 05/08/19 05:20 Blood Pressure 135/80 05/08/19 05:20 O2 Sat by Pulse Oximetry (%) 96 05/07/19 20:57 Constitutional: Yes: No Distress, Calm Eyes: Yes: Conjunctiva Clear HENT: Yes: Atraumatic Cardiovascular: Yes: Regular Rate and Rhythm Respiratory: Yes: Regular, CTA Bilaterally Gastrointestinal: Yes: Normal Bowel Sounds, Soft, Tenderness (diffuse) Neurological: Yes: Alert Psychiatric: Yes: Alert Labs: CBC, BMP 05/08/19 06:35 05/08/19 06:35 INR, PTT INR 1.55 (0.83-1.09) H 05/05/19 05:49 Problem List - Problems (1) Abnormal liver function tests Assessment/Plan: >monitor LFTs daily >current LFTs showing uptrend >consult cardiology for possible change of BP med by discontinuing Norvasc and beginning on different medication >spoke with patient daughter Kim Arana in regards to fathers liver condition, she states she does not know the name of the Liver Specialist her father saw at [facility] and the last time he was there was 3 years ago, instructed daughter to bring information from liver specialist from home for Hospitalist to view >Abdominal US shows hepatic cirrhosis, increased diffuse gallbladder wall thickening which is probably second to hepatic disease and less likely on basis of acute cholecystitis >HIDA scan ordered for gallbladder wall thickening Code(s): R94.5 - ABNORMAL RESULTS OF LIVER FUNCTION STUDIES
[2019-05-08] MEDS: POLYETHYLENE GLYCOL 3350 119 GM BTL PO SCH (10:25)
[2019-05-08] MEDS: APIXABAN 2.5 MG TABLET PO SCH ×2 (11:07→21:54)
[2019-05-08] MEDS: FUROSEMIDE 20 MG TABLET (FP) PO SCH (11:07)
[2019-05-08] MEDS: FAMOTIDINE 20 MG TABLET PO SCH ×2 (11:08→21:54)
[2019-05-08] MEDS: DOCUSATE SODIUM 100 MG CAPSULE (FP) PO SCH (11:08)
[2019-05-08] MEDS: ISOSORBIDE MONONITRATE 30 MG TAB.SR.24H (FP) PO SCH (11:08)
--- NOTE | 2019-05-08 12:15 | PN ---
Progress Note (short form) - Note Progress Note: s: no chest pain, palps, dizziness, dyspnea Current Medications Apixaban (Eliquis -) 2.5 mg PO BID [facility] Last Admin: 05/08/19 11:07 Dose: 2.5 mg Docusate Sodium (Colace -) 100 mg PO DAILY [facility] Last Admin: 05/08/19 11:08 Dose: 100 mg Famotidine (Pepcid -) 20 mg PO BID [facility] Last Admin: 05/08/19 11:08 Dose: 20 mg Furosemide (Lasix -) 20 mg PO DAILY [facility] Last Admin: 05/08/19 11:07 Dose: 20 mg Isosorbide Mononitrate (Imdur -) 30 mg PO DAILY [facility] Last Admin: 05/08/19 11:08 Dose: 30 mg Metoprolol Succinate (Toprol Xl -) 100 mg PO DAILY [facility] Last Admin: 05/08/19 11:07 Dose: 100 mg Polyethylene Glycol (Miralax (For Daily Use) -) 17 gm PO DAILY [facility] Last Admin: 05/07/19 13:52 Dose: Not Given Quetiapine Fumarate (Seroquel -) 25 mg PO [facility] Last Admin: 05/07/19 21:32 Dose: 25 mg Senna (Senna -) 1 tab PO [facility] Last Admin: 05/07/19 21:32 Dose: 1 tab Vital Signs Period Temp Pulse Resp BP Sys/Rain Pulse Ox Last 24 Hr 97.7 F-98.9 F 56-60 18-20 105-136/50-80 96-96 Constitutional: Yes: No Distress, Calm Respiratory: Yes: CTA Bilaterally Gastrointestinal: Yes: Soft, Abdomen, Obese, Other (distended.) Cardiovascular: Yes: Regular Rate and Rhythm (paced.) JVD: No Carotid Bruit: No PMI: Non-Displaced Heart Sounds: Yes: S1, S2 (RRR.) Edema: No Peripheral Pulses WNL: Yes no jaundice, diaphoresis not agitated 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 less likely ACS. - episode NSVT - nl EF on echo 11/2018, replete lytes for K>4, Mg>2, cont tele monitoring for now, cont metoprolol - s/p paracentesis, eliquis resumed - plan for possible transfer to [facility] for further workup, manage per GI - amlodipine dc'ed in setting of elevated LFTs per GI, monitor BP, cont metoprolol - aspirin dc'ed - no prior history of CAD, PCI per discussion with Dr. Phan and primary team - Outpatient stress test if not recently done - sees Dr. Phan at [facility].
--- NOTE | 2019-05-08 13:31 | PN ---
Progress Note, Physician History of Present Illness: Pt seen and examined at bedside. He is awake and appears comfortable. - Current Medication List Current Medications: Active Medications Apixaban (Eliquis -) 2.5 mg PO BID [facility] Last Admin: 05/08/19 11:07 Dose: 2.5 mg Docusate Sodium (Colace -) 100 mg PO DAILY [facility] Last Admin: 05/08/19 11:08 Dose: 100 mg Famotidine (Pepcid -) 20 mg PO BID [facility] Last Admin: 05/08/19 11:08 Dose: 20 mg Furosemide (Lasix -) 20 mg PO DAILY [facility] Last Admin: 05/08/19 11:07 Dose: 20 mg Isosorbide Mononitrate (Imdur -) 30 mg PO DAILY [facility] Last Admin: 05/08/19 11:08 Dose: 30 mg Metoprolol Succinate (Toprol Xl -) 100 mg PO DAILY [facility] Last Admin: 05/08/19 11:07 Dose: 100 mg Polyethylene Glycol (Miralax (For Daily Use) -) 17 gm PO DAILY [facility] Last Admin: 05/07/19 13:52 Dose: Not Given Quetiapine Fumarate (Seroquel -) 25 mg PO [facility] Last Admin: 05/07/19 21:32 Dose: 25 mg Senna (Senna -) 1 tab PO [facility] Last Admin: 05/07/19 21:32 Dose: 1 tab - Objective Vital Signs: Vital Signs Temperature 97.7 F 05/08/19 10:00 Pulse Rate 60 05/08/19 10:00 Respiratory Rate 18 05/08/19 10:00 Blood Pressure 136/67 05/08/19 10:00 O2 Sat by Pulse Oximetry (%) 96 05/08/19 09:00 Constitutional: Yes: Calm Eyes: Yes: Conjunctiva Clear HENT: Yes: Atraumatic Neck: Yes: Supple Cardiovascular: Yes: S1, S2 Respiratory: Yes: CTA Bilaterally Gastrointestinal: Yes: Soft, Ascites, Distention Genitourinary: Yes: WNL Musculoskeletal: Yes: WNL Edema: No Neurological: Yes: Oriented Labs: CBC, BMP 05/08/19 06:35 05/08/19 06:35 INR, PTT INR 1.55 (0.83-1.09) H 05/05/19 05:49 Problem List - Problems (1) LORRAINE (acute kidney injury) Code(s): N17.9 - ACUTE KIDNEY FAILURE, UNSPECIFIED (2) Transaminitis Code(s): R74.0 - NONSPEC ELEV OF LEVELS OF TRANSAMNS & LACTIC ACID DEHYDRGNSE Assessment/Plan Current Medications Generic Name Dose Route Start Last Admin Trade Name Niranjanq PRN Reason Stop Dose Admin Apixaban 2.5 mg 05/07/19 22:00 05/08/19 11:07 Eliquis - PO 2.5 mg BID [facility] Administration Docusate Sodium 100 mg 05/04/19 10:00 05/08/19 11:08 Colace - PO 100 mg DAILY [facility] Administration Famotidine 20 mg 05/03/19 22:00 05/08/19 11:08 Pepcid - PO 20 mg BID [facility] Administration Furosemide 20 mg 05/06/19 10:00 05/08/19 11:07 Lasix - PO 20 mg DAILY [facility] Administration Isosorbide Mononitrate 30 mg 05/04/19 10:00 05/08/19 11:08 Imdur - PO 30 mg DAILY [facility] Administration Metoprolol Succinate 100 mg 05/04/19 10:00 05/08/19 11:07 Toprol Xl - PO 100 mg DAILY [facility] Administration Polyethylene Glycol 17 gm 05/04/19 10:00 05/07/19 13:52 Miralax (For Daily Use) - PO Not Given DAILY [facility] Quetiapine Fumarate 25 mg 05/04/19 22:00 05/07/19 21:32 Seroquel - PO 25 mg HS [facility] Administration Senna 1 tab 05/04/19 22:00 05/07/19 21:32 Senna - PO 1 tab HS [facility] Administration Impression 1. LORRAINE 2. UTI 3. cad 4. htn 5. a-fib 6. hep c 7. colon cancer Plan - renal function is improving - cont lasix - s/p paracentesis yesterday, he had 810 cc of fluid removed - monitor urine output - GI follow up - avoid nsaids
[2019-05-08] MEDS: SPIRONOLACTONE 25 MG TABLET (FP) PO SCH (15:25)
[2019-05-08] MEDS: metroNIDAZOLE 250 MG TABLET PO SCH ×2 (15:25→21:54)
--- NOTE | 2019-05-08 18:17 | PN ---
Teaching Attending Note Name of Resident: Ganesh Kumar ATTENDING PHYSICIAN STATEMENT I saw and evaluated the patient. I reviewed the resident's note and discussed the case with the resident. I agree with the resident's findings and plan as documented. SUBJECTIVE: Not cooperative with Tower Crane Operator phone. LIFE ENRICHMENT DIRECTOR Kobi kindly helped with translation . He denies any SOB.has mild Abd pain . no dysuria. OBJECTIVE: NAD. awake, knows he si in hospital, rodríguez snot know his age MMM, jaundiced, icteric sclera. no facial droop. CV: RRR, no MRG Lungs: CTAB Abd: distended, soft, minimal TTP in all quadrants. liver is percussed 2 cm below costal margin but not palpated. Ext: trace edema on legs ASSESSMENT AND PLAN: 79 y/o man with h/o P AFib/A flutter s/p ablation 2013, PPM, diastolic CHF, colon cancer, HTN, Hep C , cirrhosis, Not sure of h/o CAD,Not sure of GI bleed in past who presented with Cp and confusion 1- Acute delirium, on a back ground of possible dementia 2- Cirrhosis, worsening LFTS. 3- Abd pain. 4- Dysuria. neg urine cx. No UTI 5- LORRAINE. due to urinary retention. low suspicion for hepatorenal syndrome. stable cr 6- H/o A fib /aflutter s/p ablation 7- H/o diastolic heart failure 8- L renal cyst on US 9- NSVT Plan : - s/p large volume paracentecis today 8 L removed. Received 50 g of Albumin after - No signs of SBP. follwo fluid cx - LFTs slightly better today - Case was d/w Dr. Mosqueda by team. the diagnosis is worsening LFTS due to progression of cirrhosis. No further w/u is needed suggestion is to monitor, no need for transfer and to start flagyl. Norvasc was stopped yesterday. stop statin. - start spironoalctone per GI - cont lasix - Cont eliquis 2.5 BID - Off ASA due to no evidence of stents or CAD. will not resume after dc - out pt f/u for the renal cyst. - cont metoprolol, imdur - PT eval noted. - GI Recs ( Nati Alcantar ) note are pending. If LFTS remains stable, patient can be dc tomorrow
--- NOTE | 2019-05-08 18:30 | PN ---
Physical Exam: SUBJECTIVE: Patient seen and examined O/N: agitated, wheeled to Nurse's station for closer monitoring OBJECTIVE: Vital Signs Period Temp Pulse Resp BP Sys/Rain Pulse Ox Last 24 Hr 97.6 F-98.9 F 56-60 18-20 112-136/66-80 96-96 GENERAL: The patient is awake, alert, oriented to name, city. No acute distress. HEAD: Normal with no signs of trauma. EYES: extraocular movements intact, mild sclera icteric, conjunctiva clear. No ptosis. ENT: Ears normal, nares patent, oropharynx clear without exudates, moist mucous membranes. NECK: Trachea midline, full range of motion, supple. LUNGS: Breath sounds equal, mild b/l crackles, no accessory muscle use. HEART: Regular rate and rhythm, S1, S2 without murmur, rub or gallop. ABDOMEN: Distended w/ midline surgical scar, shifting dullness, mild ascites. Soft, nontender, normoactive bowel sounds, no guarding, no rebound. EXTREMITIES: 2+ pulses, warm, well-perfused, no edema. NEUROLOGICAL: Normal speech, unsteady gait. PSYCH: Normal mood, normal affect. SKIN: Warm, dry, mild jaundice Laboratory Results - last 24 hr 05/04/19 05/04/19 05/08/19 00:00 00:00 06:35 WBC 5.0 RBC 5.02 Hgb 14.2 Hct 42.8 MCV 85.2 MCH 28.3 MCHC 33.2 RDW 15.4 Plt Count 71 L MPV 11.3 H Sodium Potassium Chloride Carbon Dioxide Anion Gap BUN Creatinine Est GFR (CKD-EPI)AfAm Est GFR (CKD-EPI)NonAf Random Glucose Calcium Phosphorus Magnesium Total Bilirubin AST ALT Alkaline Phosphatase Total Protein Albumin Hep Bs Antigen Negative Hep Bs Antibody Non reactive Hep B Core Total Ab Negative Hep B Core IgM Ab Negative Hepatitis Be Antibody Negative Hepatitis Be Antigen Negative HCV Quantitation Hcv not detected HCV RNA log copies/mL TNP 05/08/19 06:35 WBC RBC Hgb Hct MCV MCH MCHC RDW Plt Count MPV Sodium 137 Potassium 4.6 Chloride 109 H Carbon Dioxide 23 Anion Gap 5 L BUN 32.5 H Creatinine 1.2 Est GFR (CKD-EPI)AfAm 65.33 Est GFR (CKD-EPI)NonAf 56.37 Random Glucose 92 Calcium 10.0 Phosphorus 2.7 Magnesium 2.2 Total Bilirubin 4.4 H AST 119 H ALT 100 H Alkaline Phosphatase 387 H Total Protein 7.2 Albumin 3.6 Hep Bs Antigen Hep Bs Antibody Hep B Core Total Ab Hep B Core IgM Ab Hepatitis Be Antibody Hepatitis Be Antigen HCV Quantitation HCV RNA log copies/mL Active Medications Generic Name Dose Route Start Last Admin Trade Name Freq PRN Reason Stop Dose Admin Apixaban 2.5 mg 05/07/19 22:00 05/08/19 11:07 Eliquis - PO 2.5 mg BID [facility] Administration Docusate Sodium 100 mg 05/04/19 10:00 05/08/19 11:08 Colace - PO 100 mg DAILY [facility] Administration Famotidine 20 mg 05/03/19 22:00 05/08/19 11:08 Pepcid - PO 20 mg BID [facility] Administration Furosemide 20 mg 05/06/19 10:00 05/08/19 11:07 Lasix - PO 20 mg DAILY [facility] Administration Isosorbide Mononitrate 30 mg 05/04/19 10:00 05/08/19 11:08 Imdur - PO 30 mg DAILY [facility] Administration Lactulose 20 gm 05/08/19 22:00 Cephulac (Oral Use) PO HS [facility] Metoprolol Succinate 100 mg 05/04/19 10:00 05/08/19 11:07 Toprol Xl - PO 100 mg DAILY [facility] Administration Metronidazole 250 mg 05/08/19 15:00 05/08/19 15:25 Flagyl - PO 250 mg TID [facility] Administration Polyethylene Glycol 17 gm 05/04/19 10:00 05/08/19 10:25 Miralax (For Daily Use) - PO 17 grams DAILY [facility] Administration Quetiapine Fumarate 25 mg 05/04/19 22:00 05/07/19 21:32 Seroquel - PO 25 mg HS [facility] Administration Senna 1 tab 05/04/19 22:00 05/07/19 21:32 Senna - PO 1 tab HS [facility] Administration Spironolactone 50 mg 05/08/19 15:00 05/08/19 15:25 Aldactone - PO 50 mg DAILY [facility] Administration ASSESSMENT/PLAN: 79 M h/o ?CAD(?s/p stenting), aflutter s/p abalation + PPM, HTN, HLD, ?Hep c liver cirrhosis, colon Ca(s/p hemicolectomy), presented with abd pain w/a abdominal distension, also had complaint of burning pain w/ urination, chronic shoulder pain, chronic neck pain, chest pain. Complaints likely 2/2 to acutely decompensated liver disease. Elevated LFTs, bilirubin possibly 2/2 worsening liver function. HIDA normal. GI rec stopping meds that could cause increased LFTs(norvas, statin). Started Flagyl, spironolactone, lactulose. Had paracentesis with ~800cc of cloudy fluid, given Albumin 50mg IVPB x1 post- procedure. # Chest pain > Troponin 0.03, 0.05, 0.05 > EKG: ventricular paced - cardio(Francescone) consult: --rec stopping ASA if no h/o stent --pt is at-risk for bleeding --records pending from Dr. Polanco to confrim ([phone] and [phone] ) --no h/o stent as per Dr Polanco --ASA dc'd, can also dc'd Eliquis --outpt stress test #? CAD s/p stent placement - no NV or stent as per family - records pending from Dr. Polanco ([phone]/ [phone]) --no h/o stent as per Dr Polanco --ASA dc'd, can also dc'd Eliquis - resume BB, hold statin in view of transaminitis, ARB, ASA, AC # Transaminitis --likely 2/2 decompensated cirrhosis --increasing in severity > Jaki B > Tbil 2.5, Dbil 1.6... 3.9, 4.4 > AST/ALT: 126/128, 119/124, 133/117... 119/100 > Ammonia 26.7 > Hep panel --pending > RUQ US(05/03/19): diffuse GB wall thickening, CBD 0.3cm, perihepatic ascites > HIDA --pending - abx regimen: UTI tx and empiric SBP --ceftriaxone --day#4 --stopped on day 4 - IR paracentesis(diagnostic) --Eliquis held on 05/04/19 --s/p paracentesis w/ 810cc of cloudy fluid drained ---cytology pending -GI consult(Kirby): --rec HIDA --normal --rec Surg consult --if rising LFTs, consider transfer to [facility](pt gets care there) -GI consult(Panda): --AFP level: 6.7 --No transfer to [facility] --stopped Norvas, stopped Statin --start Flagyl --start Spironolactone #GB wall thickening --possibly 2/2 cirrhosis, less likely cholecystitis > HIDA(05/08/19): normal # UTI --symptomatic > UA: nitrite +, bilirubin 2+ > UCX(05/03/19): NGTD - ceftriaxone --stopped on HD #4 # LORRAINE --possibly 2/2 hepatorenal vs urinary retention # Urinary retention > Cr(baseline ~1.0) 1.5, 1.4, 1.2 > Renal US(05/03/19): no hydronephrosis, PVR ~330, Left renal cyst 2.7cm - Nephro([facility]) consult: --trend lytes - Uro([facility]) consult: --flomax 0.4mg QD --dc Wu in 48hs(~05/05/19) # chronic dementia --baseline A&Ox1 > ammonia 26.7 - monitor for delirium vs hepatic encephalopathy # chronic dyslipidemia -hold statin in view of hepatic injury # HTN - restart home BP meds when appriopriate #DVT ppx: - Eliquis(held) for 05/07/19 IR paracentesis - restarted Eliquis #FEN: - diabetic/sodium diet #GI PPX: Famotidine #DISPO: - tele Visit type - Emergency Visit Emergency Visit: No - New Patient This patient is new to me today: No - Critical Care Critical Care patient: No ATTENDING PHYSICIAN STATEMENT I saw and evaluated the patient. I reviewed the resident's note and discussed the case with the resident. I agree with the resident's findings and plan as documented. SUBJECTIVE: OBJECTIVE: ASSESSMENT AND PLAN:
[2019-05-08] MEDS: SENNOSIDES 8.6MG TABLET (FP) PO SCH (21:54)
[2019-05-08] MEDS: LACTULOSE 20 GM/30 ML UDC (FOR ORAL USE ONLY) PO SCH (21:54)
[2019-05-08] MEDS: QUEtiapine FUMARATE 25 MG TABLET PO SCH (21:54)
[2019-05-09] MEDS: metroNIDAZOLE 250 MG TABLET PO SCH ×3 (05:32→22:12)
[2019-05-09 07:23] LABS: HEMATOCRIT 45.5 % (35.4-49); HEMOGLOBIN 14.7 GM/dL (11.7-16.9); MCH 27.9 pg (25.7-33.7); MCHC 32.2 g/dl (32.0-35.9); MEAN CELL VOLUME 86.7 fl (80-96); PLATELET COUNT 72 K/MM3 (134-434); RBC 5.25 M/mm3 (4.00-5.60); RDW 15.9 % (11.9-15.9); WHITE BLOOD COUNT 5.1 K/mm3 (4.0-10.0)
[2019-05-09 08:00] LABS: BILIRUBIN,TOTAL 4.4 mg/dL (0.2-1); BLOOD UREA NITROGEN 30.2 mg/dL (7-18); CALCIUM 9.7 mg/dL (8.5-10.1); CREATININE 1.2 mg/dL (0.55-1.3); MAGNESIUM 2.1 mg/dL (1.8-2.4); PHOSPHOROUS 2.7 mg/dL (2.5-4.9); POTASSIUM 4.7 mmol/L (3.5-5.1); TOT PROT 6.5 g/dl (6.4-8.2)
--- NOTE | 2019-05-09 08:49 | PN ---
Teaching Attending Note Name of Resident: Ganesh Kumar ATTENDING PHYSICIAN STATEMENT I saw and evaluated the patient. I reviewed the resident's note and discussed the case with the resident. I agree with the resident's findings and plan as documented. SUBJECTIVE: Patient is feeling slightly better c/o having mid abdominal pain. Family at bedside, daughter speaks Estonian. Vital Signs Temperature 97.9 F 05/09/19 06:00 Pulse Rate 62 05/09/19 06:00 Respiratory Rate 18 05/09/19 06:00 Blood Pressure 133/73 05/09/19 06:00 O2 Sat by Pulse Oximetry (%) 96 05/08/19 21:00 GENERAL: The patient is awake, alert, and fully oriented, in no acute distress. HEAD: Normal with no signs of trauma. EYES: PERRL, extraocular movements intact, sclera anicteric, conjunctiva clear. . ENT: Ears normal, oropharynx clear without exudates, moist mucous membranes. NECK: Trachea midline, full range of motion, supple. LUNGS: Breath sounds equal, clear to auscultation bilaterally, no wheezes, no crackles, no accessory muscle use. HEART: Regular rate and rhythm, S1, S2 without murmur, rub or gallop. ABDOMEN: Soft, distended, normoactive bowel sounds, no guarding, no rebound, no hepatosplenomegaly, no masses. EXTREMITIES: 2+ pulses, warm, well-perfused, no edema. NEUROLOGICAL: Cranial nerves II through XII grossly intact. Normal speech, gait not observed. PSYCH: Normal mood, normal affect. SKIN: Warm, dry, normal turgor, no rashes or lesions noted CBCD WBC 5.1 K/mm3 (4.0-10.0) 05/09/19 06:41 RBC 5.25 M/mm3 (4.00-5.60) 05/09/19 06:41 Hgb 14.7 GM/dL (11.7-16.9) 05/09/19 06:41 Hct 45.5 % (35.4-49) 05/09/19 06:41 MCV 86.7 fl (80-96) 05/09/19 06:41 MCHC 32.2 g/dl (32.0-35.9) 05/09/19 06:41 RDW 15.9 % (11.9-15.9) 05/09/19 06:41 Plt Count 71 K/MM3 (134-434) L 05/08/19 06:35 MPV 12.0 fl (7.5-11.1) H 05/09/19 06:41 CMP Sodium 138 mmol/L (136-145) 05/09/19 06:41 Potassium 4.7 mmol/L (3.5-5.1) 05/09/19 06:41 Chloride 108 mmol/L (98-107) H 05/09/19 06:41 Carbon Dioxide 24 mmol/L (21-32) 05/09/19 06:41 Anion Gap 5 MMOL/L (8-16) L 05/09/19 06:41 BUN 30.2 mg/dL (7-18) H 05/09/19 06:41 Creatinine 1.2 mg/dL (0.55-1.3) 05/09/19 06:41 Random Glucose 88 mg/dL (74-106) 05/09/19 06:41 Calcium 9.7 mg/dL (8.5-10.1) 05/09/19 06:41 Total Bilirubin 4.4 mg/dL (0.2-1) H 05/09/19 06:41 AST 123 U/L (15-37) H 05/09/19 06:41 ALT 97 U/L (13-61) H 05/09/19 06:41 Alkaline Phosphatase 380 U/L (45-117) H 05/09/19 06:41 Total Protein 6.5 g/dl (6.4-8.2) 05/09/19 06:41 Albumin 3.0 g/dl (3.4-5.0) L 05/09/19 06:41 CARDIAC ENZYMES Creatine Kinase 132 U/L (26-308) 05/03/19 13:00 Troponin I 0.05 ng/ml (0.00-0.05) 05/05/19 05:49 Current Medications Generic Name Dose Route Start Last Admin Trade Name Freq PRN Reason Stop Dose Admin Apixaban 2.5 mg 05/07/19 22:00 05/08/19 21:54 Eliquis - PO 2.5 mg BID [facility] Administration Docusate Sodium 100 mg 05/04/19 10:00 05/08/19 11:08 Colace - PO 100 mg DAILY [facility] Administration Famotidine 20 mg 05/03/19 22:00 05/08/19 21:54 Pepcid - PO 20 mg BID [facility] Administration Furosemide 20 mg 05/06/19 10:00 05/08/19 11:07 Lasix - PO 20 mg DAILY [facility] Administration Isosorbide Mononitrate 30 mg 05/04/19 10:00 05/08/19 11:08 Imdur - PO 30 mg DAILY [facility] Administration Lactulose 20 gm 05/08/19 22:00 05/08/19 21:54 Cephulac (Oral Use) PO 20 gm HS [facility] Administration Metoprolol Succinate 100 mg 05/04/19 10:00 05/08/19 11:07 Toprol Xl - PO 100 mg DAILY [facility] Administration Metronidazole 250 mg 05/08/19 15:00 05/09/19 05:32 Flagyl - PO 250 mg TID [facility] Administration Polyethylene Glycol 17 gm 05/04/19 10:00 05/08/19 10:25 Miralax (For Daily Use) - PO 17 grams DAILY [facility] Administration Quetiapine Fumarate 25 mg 05/04/19 22:00 05/08/19 21:54 Seroquel - PO 25 mg HS [facility] Administration Senna 1 tab 05/04/19 22:00 05/08/19 21:54 Senna - PO 1 tab HS [facility] Administration Spironolactone 50 mg 05/08/19 15:00 05/08/19 15:25 Aldactone - PO 50 mg DAILY [facility] Administration Home Medications Medication Instructions Recorded Amlodipine Besylate [Norvasc -] 10 mg PO DAILY 11/22/18 Aspirin [Aspirin EC] 81 mg PO DAILY 11/22/18 Atorvastatin Ca [Lipitor] 20 mg PO HS 11/22/18 Ergocalciferol (Vitamin D2) 1.25 mg PO WEEKLY 11/22/18 [Vitamin D2] Furosemide [Lasix -] 20 mg PO DAILY 11/22/18 Isosorbide Mononitrate [Imdur -] 30 mg PO DAILY 11/22/18 Losartan Potassium [Cozaar -] 25 mg PO DAILY 11/22/18 Metoprolol Succinate [Toprol Xl] 100 mg PO DAILY 11/22/18 Quetiapine Fumarate [Seroquel -] 25 mg PO HS tablet 03/08/19 Apixaban [Eliquis] 2.5 mg PO BID 05/03/19 Microbiology 05/07/19 14:00 Ascites AFB Smear Concentration - Preliminary 05/07/19 14:00 Ascites Mycobacterial Culture - Preliminary 05/07/19 14:00 Ascites Gram Stain - Final 05/07/19 14:00 Ascites Body Fluid Culture - Preliminary NO AEROBIC GROWTH, 24 HRS 05/07/19 14:00 Ascites GABE Preparation - Preliminary 05/07/19 14:00 Ascites Fungal Culture - Preliminary 05/03/19 14:30 Urine - Urine Clean Catch Urine Culture - Final NO GROWTH OBTAINED Assessment and Plan: Patient is an 79yom with Pmhx of P AFib/A flutter s/p ablation 2013, PPM, diastolic CHF, colon cancer, HTN, Hep C , cirrhosis, Not sure of h/o CAD, Not sure of GI bleed in past who presented with Cp and confusion # s/p delirium, possible due to liver cirrhosis # Liver cirrhosis, worsening LFTS will cont lasix, spironoalctone , s/p large volume paracentecis of 8 L. Received 50 g of Albumin after # Abd pain due to worsening lover cirrhosis ,stop statin. # Dysuria. neg urine cx. No UTI # LORRAINE. due to urinary retention. monitor cr # H/o A fib /aflutter s/p ablation on eliquis 2.5 mg # H/o diastolic heart failure cont metoprolol, imdur # L renal cyst on US follow as an outpatient # NSVT # PT eval noted. Generalized weakness. Case was d/w Dr. Mosqueda by team. the diagnosis is worsening LFTS due to progression of cirrhosis. No further w/u is needed
[2019-05-09] MEDS: APIXABAN 2.5 MG TABLET PO SCH ×2 (09:32→22:00)
[2019-05-09] MEDS: DOCUSATE SODIUM 100 MG CAPSULE (FP) PO SCH (09:32)
[2019-05-09] MEDS: SPIRONOLACTONE 25 MG TABLET (FP) PO SCH (09:32)
[2019-05-09] MEDS: FAMOTIDINE 20 MG TABLET PO SCH ×2 (09:33→22:01)
[2019-05-09] MEDS: ISOSORBIDE MONONITRATE 30 MG TAB.SR.24H (FP) PO SCH (09:33)
[2019-05-09] MEDS: FUROSEMIDE 20 MG TABLET (FP) PO SCH (09:33)
[2019-05-09] MEDS: POLYETHYLENE GLYCOL 3350 119 GM BTL PO SCH (09:33)
--- NOTE | 2019-05-09 11:41 | PN ---
Progress Note (short form) - Note Progress Note: s: no chest pain, palps, dizziness, dyspnea Current Medications Apixaban (Eliquis -) 2.5 mg PO BID [facility] Last Admin: 05/09/19 09:32 Dose: 2.5 mg Docusate Sodium (Colace -) 100 mg PO DAILY [facility] Last Admin: 05/09/19 09:32 Dose: 100 mg Famotidine (Pepcid -) 20 mg PO BID [facility] Last Admin: 05/09/19 09:33 Dose: 20 mg Furosemide (Lasix -) 20 mg PO DAILY [facility] Last Admin: 05/09/19 09:33 Dose: 20 mg Isosorbide Mononitrate (Imdur -) 30 mg PO DAILY [facility] Last Admin: 05/09/19 09:33 Dose: 30 mg Lactulose (Cephulac (Oral Use)) 20 gm PO [facility] Last Admin: 05/08/19 21:54 Dose: 20 gm Metoprolol Succinate (Toprol Xl -) 100 mg PO DAILY [facility] Last Admin: 05/09/19 09:34 Dose: 100 mg Metronidazole (Flagyl -) 250 mg PO TID [facility] Last Admin: 05/09/19 05:32 Dose: 250 mg Polyethylene Glycol (Miralax (For Daily Use) -) 17 gm PO DAILY [facility] Last Admin: 05/09/19 09:33 Dose: 17 grams Quetiapine Fumarate (Seroquel -) 25 mg PO [facility] Last Admin: 05/08/19 21:54 Dose: 25 mg Senna (Senna -) 1 tab PO [facility] Last Admin: 05/08/19 21:54 Dose: 1 tab Spironolactone (Aldactone -) 50 mg PO DAILY [facility] Last Admin: 05/09/19 09:32 Dose: 50 mg Vital Signs Period Temp Pulse Resp BP Sys/Rain Pulse Ox Last 24 Hr 97.6 F-98.7 F 59-64 18-20 112-133/54-78 96 Constitutional: Yes: No Distress, Calm Respiratory: Yes: CTA Bilaterally Gastrointestinal: Yes: Soft, Abdomen, Obese, Other (distended.) Cardiovascular: Yes: Regular Rate and Rhythm (paced.) JVD: No Carotid Bruit: No PMI: Non-Displaced Heart Sounds: Yes: S1, S2 (RRR.) Edema: No Peripheral Pulses WNL: Yes no jaundice, diaphoresis not agitated Assessment/Plan IMP: Hep C, cirrhosis Thrombocytopenia History of Colon Cancer PAF s/p PPM Aflutter s/p ablation 2013 CAD s/p PCI Acute renal insufficiency Transaminitis Abdominal pain Atypical Chest pain NSVT REC: - trop neg x 4. less likely ACS. - episode NSVT - nl EF on echo 11/2018, replete lytes for K>4, Mg>2, cont metoprolol - s/p paracentesis, eliquis resumed - amlodipine dc'ed in setting of elevated LFTs per GI, monitor BP, cont metoprolol - aspirin dc'ed - no prior history of CAD, PCI per discussion with Dr. Phan and primary team - Outpatient stress test if not recently done - follow up with Dr. Phan at [facility].
--- NOTE | 2019-05-09 13:12 | PN ---
Progress Note, Physician History of Present Illness: Pt seen and examined at bedside. He is out of bed to chair. He denies shortness of breath. - Current Medication List Current Medications: Active Medications Apixaban (Eliquis -) 2.5 mg PO BID [facility] Last Admin: 05/09/19 09:32 Dose: 2.5 mg Docusate Sodium (Colace -) 100 mg PO DAILY [facility] Last Admin: 05/09/19 09:32 Dose: 100 mg Famotidine (Pepcid -) 20 mg PO BID [facility] Last Admin: 05/09/19 09:33 Dose: 20 mg Furosemide (Lasix -) 20 mg PO DAILY [facility] Last Admin: 05/09/19 09:33 Dose: 20 mg Isosorbide Mononitrate (Imdur -) 30 mg PO DAILY [facility] Last Admin: 05/09/19 09:33 Dose: 30 mg Lactulose (Cephulac (Oral Use)) 20 gm PO [facility] Last Admin: 05/08/19 21:54 Dose: 20 gm Metoprolol Succinate (Toprol Xl -) 100 mg PO DAILY [facility] Last Admin: 05/09/19 09:34 Dose: 100 mg Metronidazole (Flagyl -) 250 mg PO TID [facility] Last Admin: 05/09/19 05:32 Dose: 250 mg Polyethylene Glycol (Miralax (For Daily Use) -) 17 gm PO DAILY [facility] Last Admin: 05/09/19 09:33 Dose: 17 grams Quetiapine Fumarate (Seroquel -) 25 mg PO [facility] Last Admin: 05/08/19 21:54 Dose: 25 mg Senna (Senna -) 1 tab PO [facility] Last Admin: 05/08/19 21:54 Dose: 1 tab Spironolactone (Aldactone -) 50 mg PO DAILY [facility] Last Admin: 05/09/19 09:32 Dose: 50 mg - Objective Vital Signs: Vital Signs Temperature 98.7 F 05/09/19 09:37 Pulse Rate 61 05/09/19 09:37 Respiratory Rate 20 05/09/19 09:37 Blood Pressure 132/54 L 05/09/19 09:37 O2 Sat by Pulse Oximetry (%) 96 05/08/19 21:00 Constitutional: Yes: Calm Eyes: Yes: Conjunctiva Clear HENT: Yes: Atraumatic Neck: Yes: Supple Cardiovascular: Yes: S1, S2 Respiratory: Yes: CTA Bilaterally Gastrointestinal: Yes: Soft, Ascites Genitourinary: Yes: WNL Musculoskeletal: Yes: WNL Edema: No Neurological: Yes: Oriented Psychiatric: Yes: Oriented Labs: CBC, BMP 05/09/19 06:41 05/09/19 06:41 INR, PTT INR 1.55 (0.83-1.09) H 05/05/19 05:49 Problem List - Problems (1) LORRAINE (acute kidney injury) Code(s): N17.9 - ACUTE KIDNEY FAILURE, UNSPECIFIED (2) Transaminitis Code(s): R74.0 - NONSPEC ELEV OF LEVELS OF TRANSAMNS & LACTIC ACID DEHYDRGNSE Assessment/Plan Current Medications Generic Name Dose Route Start Last Admin Trade Name Freq PRN Reason Stop Dose Admin Apixaban 2.5 mg 05/07/19 22:00 05/09/19 09:32 Eliquis - PO 2.5 mg BID [facility] Administration Docusate Sodium 100 mg 05/04/19 10:00 05/09/19 09:32 Colace - PO 100 mg DAILY [facility] Administration Famotidine 20 mg 05/03/19 22:00 05/09/19 09:33 Pepcid - PO 20 mg BID [facility] Administration Furosemide 20 mg 05/06/19 10:00 05/09/19 09:33 Lasix - PO 20 mg DAILY [facility] Administration Isosorbide Mononitrate 30 mg 05/04/19 10:00 05/09/19 09:33 Imdur - PO 30 mg DAILY [facility] Administration Lactulose 20 gm 05/08/19 22:00 05/08/19 21:54 Cephulac (Oral Use) PO 20 gm HS [facility] Administration Metoprolol Succinate 100 mg 05/04/19 10:00 05/09/19 09:34 Toprol Xl - PO 100 mg DAILY [facility] Administration Metronidazole 250 mg 05/08/19 15:00 05/09/19 05:32 Flagyl - PO 250 mg TID [facility] Administration Polyethylene Glycol 17 gm 05/04/19 10:00 05/09/19 09:33 Miralax (For Daily Use) - PO 17 grams DAILY [facility] Administration Quetiapine Fumarate 25 mg 05/04/19 22:00 05/08/19 21:54 Seroquel - PO 25 mg HS [facility] Administration Senna 1 tab 05/04/19 22:00 05/08/19 21:54 Senna - PO 1 tab HS [facility] Administration Spironolactone 50 mg 05/08/19 15:00 05/09/19 09:32 Aldactone - PO 50 mg DAILY [facility] Administration Impression 1. LORRAINE 2. UTI 3. cad 4. htn 5. a-fib 6. hep c 7. colon cancer Plan - renal function stable - cont aldactone - cont lasix - moitor lytes - monitor urine output - GI follow up - avoid nsaids
--- NOTE | 2019-05-09 14:37 | PATH ---
Cytology Non-Gynecological Report Patient Name: DELMA MOTTA [facility]. Rec. #: [id number] /Age/Gender: 1940 (Age: 79) / M Account: [id number] Location: 4 W TELEMETRY U Taken: 05/07/2019 Received: 05/08/2019 Reported: 05/09/2019 Physicians: Sonia Andrews M.D. Specimen(s) Received A: ABDOMINAL FLUID B: ABDOMINAL FLUID Clinical History Ascites Final Diagnosis A-B. ABDOMINAL FLUID, PARACENTESIS: SATISFACTORY FOR EVALUATION. NO MALIGNANT CELLS IDENTIFIED. MESOTHELIAL CELLS, MACROPHAGES, AND LYMPHOCYTES PRESENT. Electronically Signed Sonal Maza M.D. Gross Description A. Approximately 500 cc of yellow fluid received fresh. One cytofunnel prepared and Pap stained. One cellblock prepared B. Approximately 50 cc of yellow fluid received fixed in 50% alcohol. One cytofunnel prepared and Pap stained. One cellblock prepared.
--- NOTE | 2019-05-09 16:29 | PN ---
Physical Exam: SUBJECTIVE: Patient seen and examined BG States that his abd is slightly more distended than yesterday OBJECTIVE: Vital Signs Period Temp Pulse Resp BP Sys/Rain Pulse Ox Last 24 Hr 97.9 F-98.7 F 59-64 18-20 103-133/54-73 96-98 GENERAL: The patient is awake, alert, oriented to name, city. No acute distress. HEAD: Normal with no signs of trauma. EYES: extraocular movements intact, mild sclera icteric, conjunctiva clear. No ptosis. ENT: Ears normal, nares patent, oropharynx clear without exudates, moist mucous membranes. NECK: Trachea midline, full range of motion, supple. LUNGS: Breath sounds equal, mild b/l crackles, no accessory muscle use. HEART: Regular rate and rhythm, S1, S2 without murmur, rub or gallop. ABDOMEN: Distended w/ midline surgical scar, shifting dullness, mild ascites. Soft, nontender, normoactive bowel sounds, no guarding, no rebound. EXTREMITIES: 2+ pulses, warm, well-perfused, no edema. NEUROLOGICAL: Normal speech, unsteady gait. PSYCH: Normal mood, normal affect. SKIN: Warm, dry, mild jaundice Laboratory Results - last 24 hr 05/09/19 05/09/19 05/09/19 06:41 06:41 06:41 WBC 5.1 RBC 5.25 Hgb 14.7 Hct 45.5 MCV 86.7 MCH 27.9 MCHC 32.2 RDW 15.9 Plt Count 72 L MPV 12.0 H Platelet Comment Present Sodium 138 Potassium 4.7 Chloride 108 H Carbon Dioxide 24 Anion Gap 5 L BUN 30.2 H Creatinine 1.2 Est GFR (CKD-EPI)AfAm 65.33 Est GFR (CKD-EPI)NonAf 56.37 Random Glucose 88 Calcium 9.7 Phosphorus 2.7 Magnesium 2.1 Total Bilirubin 4.4 H Direct Bilirubin 3.0 H AST 123 H ALT 97 H Alkaline Phosphatase 380 H Total Protein 6.5 Albumin 3.0 L Active Medications Generic Name Dose Route Start Last Admin Trade Name Freq PRN Reason Stop Dose Admin Apixaban 2.5 mg 05/07/19 22:00 05/09/19 09:32 Eliquis - PO 2.5 mg BID [facility] Administration Docusate Sodium 100 mg 05/04/19 10:00 05/09/19 09:32 Colace - PO 100 mg DAILY [facility] Administration Famotidine 20 mg 05/03/19 22:00 05/09/19 09:33 Pepcid - PO 20 mg BID [facility] Administration Furosemide 20 mg 05/06/19 10:00 05/09/19 09:33 Lasix - PO 20 mg DAILY [facility] Administration Isosorbide Mononitrate 30 mg 05/04/19 10:00 05/09/19 09:33 Imdur - PO 30 mg DAILY [facility] Administration Lactulose 20 gm 05/08/19 22:00 05/08/19 21:54 Cephulac (Oral Use) PO 20 gm HS [facility] Administration Metoprolol Succinate 100 mg 05/04/19 10:00 05/09/19 09:34 Toprol Xl - PO 100 mg DAILY [facility] Administration Metronidazole 250 mg 05/08/19 15:00 05/09/19 14:14 Flagyl - PO 250 mg TID [facility] Administration Polyethylene Glycol 17 gm 05/04/19 10:00 05/09/19 09:33 Miralax (For Daily Use) - PO Not Given DAILY [facility] Quetiapine Fumarate 25 mg 05/04/19 22:00 05/08/19 21:54 Seroquel - PO 25 mg HS [facility] Administration Senna 1 tab 05/04/19 22:00 05/08/19 21:54 Senna - PO 1 tab HS [facility] Administration Spironolactone 50 mg 05/08/19 15:00 05/09/19 09:32 Aldactone - PO 50 mg DAILY [facility] Administration ASSESSMENT/PLAN: 79 M h/o ?CAD(?s/p stenting), aflutter s/p abalation + PPM, HTN, HLD, ?Hep c liver cirrhosis, colon Ca(s/p hemicolectomy), presented with abd pain w/a abdominal distension, also had complaint of burning pain w/ urination, chronic shoulder pain, chronic neck pain, chest pain. Complaints likely 2/2 to acutely decompensated liver disease. Elevated LFTs, bilirubin possibly 2/2 worsening liver function. HIDA normal. GI rec stopping meds that could cause increased LFTs(norvas, statin). On 05/08/19, started Flagyl, spironolactone, lactulose. Had paracentesis with ~800cc of cloudy fluid, given Albumin 50mg IVPB x1 post- procedure. Hep panel negative. # Chest pain > Troponin 0.03, 0.05, 0.05 > EKG: ventricular paced - cardio(Francescone) consult: --rec stopping ASA if no h/o stent --pt is at-risk for bleeding --records pending from Dr. Polanco to confrim ([phone] and [phone] ) --no h/o stent as per Dr Polanco --ASA dc'd, can also dc'd Eliquis --outpt stress test #? CAD s/p stent placement - no NH or stent as per family - records pending from Dr. Polanco ([phone]/ [phone]) --no h/o stent as per Dr Polanco --ASA dc'd, can also dc'd Eliquis - resume BB, hold statin in view of transaminitis, ARB, ASA, AC # Transaminitis --likely 2/2 decompensated cirrhosis --increasing in severity > Jaki B > Tbil 2.5, Dbil 1.6... 3.9, 4.4, 4.4 > AST/ALT: 126/128, 119/124, 133/117, 119/100... 123/97 > Ammonia 26.7 > Hep panel(05/04/19): neg for HepB, HepC > RUQ US(05/03/19): diffuse GB wall thickening, CBD 0.3cm, perihepatic ascites > HIDA(05/08/19): neg filling defect of GB - abx regimen: UTI tx and empiric SBP --ceftriaxone --day#4 --stopped on day 4 - IR paracentesis(diagnostic) --Eliquis held on 05/04/19 --s/p paracentesis w/ 810cc of cloudy fluid drained ---cytology pending: WBC 545 -GI consult(Kirby): --rec HIDA --normal --rec Surg consult --if rising LFTs, consider transfer to [facility](pt gets care there) -GI consult(Panda): --AFP level: 6.7 --No transfer to [facility] --stopped Norvas, stopped Statin -- Flagyl --Day 2 -- Spironolactone #GB wall thickening --possibly 2/2 cirrhosis, less likely cholecystitis > HIDA(05/08/19): normal # UTI --symptomatic > UA: nitrite +, bilirubin 2+ > UCX(05/03/19): NGTD - ceftriaxone --stopped on HD #4 # LORRAINE --possibly 2/2 hepatorenal vs urinary retention # Urinary retention > Cr(baseline ~1.0) 1.5, 1.4, 1.2 > Renal US(05/03/19): no hydronephrosis, PVR ~330, Left renal cyst 2.7cm - [facility]phro([facility] consult: --trend lytes - [facility] consult: --flomax 0.4mg QD --dc Wu in 48hs(~05/05/19) --voiding w/o issues # chronic dementia --baseline A&Ox1 > ammonia 26.7 - monitor for delirium vs hepatic encephalopathy # chronic dyslipidemia -hold statin in view of hepatic injury # HTN - restart home BP meds when appriopriate #DVT ppx: - Eliquis(held) for 05/07/19 IR paracentesis - restarted Eliquis #FEN: - diabetic/sodium diet #GI PPX: Famotidine #DISPO: - tele Visit type - Emergency Visit Emergency Visit: No - New Patient This patient is new to me today: No - Critical Care Critical Care patient: No ATTENDING PHYSICIAN STATEMENT I saw and evaluated the patient. I reviewed the resident's note and discussed the case with the resident. I agree with the resident's findings and plan as documented. SUBJECTIVE: OBJECTIVE: ASSESSMENT AND PLAN:
[2019-05-09] MEDS: SENNOSIDES 8.6MG TABLET (FP) PO SCH (22:00)
[2019-05-09] MEDS: LACTULOSE 20 GM/30 ML UDC (FOR ORAL USE ONLY) PO SCH (22:00)
[2019-05-09] MEDS: QUEtiapine FUMARATE 25 MG TABLET PO SCH (22:00)
[2019-05-09] MEDS ORDERED: PT OWN MED DRAWER 7, Y5N ONE (22:07)
[2019-05-10] MEDS: metroNIDAZOLE 250 MG TABLET PO SCH ×3 (06:44→23:00)
[2019-05-10 06:46] LABS: HEMATOCRIT 48.1 % (35.4-49); HEMOGLOBIN 15.7 GM/dL (11.7-16.9); MCH 28.5 pg (25.7-33.7); MCHC 32.6 g/dl (32.0-35.9); MEAN CELL VOLUME 87.4 fl (80-96); MEAN PLT VOLUME 11.1 fl (7.5-11.1); PLATELET COUNT 77 K/MM3 (134-434); RDW 15.9 % (11.9-15.9); WHITE BLOOD COUNT 6.8 K/mm3 (4.0-10.0)
[2019-05-10 07:15] LABS: ALBUMIN 3.2 g/dl (3.4-5.0); BLOOD UREA NITROGEN 42.1 mg/dL (7-18); CALCIUM 9.9 mg/dL (8.5-10.1); CREATININE 1.6 mg/dL (0.55-1.3); MAGNESIUM 2.3 mg/dL (1.8-2.4); POTASSIUM 4.8 mmol/L (3.5-5.1)
--- NOTE | 2019-05-10 08:09 | PN ---
Progress Note, Physician History of Present Illness: GI FOLLOW UP NOTE Patient examined and case discussed with Dr Mosqueda Patient is alert and awake, oriented x 2. Denies nausea, vomiting. Denies abdominal pain, nausea, vomiting, diarrhea, constipation, rectal bleeding, melena, blood in stool. Labs continue to show elevated LFTs. HIDA scan shows filling of the gallbladder excludes acute cystic duct obstruction, findings of thickened gallbladder wall on US or likely due to chronic liver disease, heterogenous liver with delayed blood pool activity suggestive of hepatocellular disease/cirrhosis. - Current Medication List Current Medications: Active Medications Apixaban (Eliquis -) 2.5 mg PO BID [facility] Last Admin: 05/09/19 22:00 Dose: 2.5 mg Docusate Sodium (Colace -) 100 mg PO DAILY [facility] Last Admin: 05/09/19 09:32 Dose: 100 mg Famotidine (Pepcid -) 20 mg PO BID [facility] Last Admin: 05/09/19 22:01 Dose: 20 mg Furosemide (Lasix -) 20 mg PO DAILY [facility] Last Admin: 05/09/19 09:33 Dose: 20 mg Isosorbide Mononitrate (Imdur -) 30 mg PO DAILY [facility] Last Admin: 05/09/19 09:33 Dose: 30 mg Lactulose (Cephulac (Oral Use)) 20 gm PO [facility] Last Admin: 05/09/19 22:00 Dose: 20 gm Metoprolol Succinate (Toprol Xl -) 100 mg PO DAILY [facility] Last Admin: 05/09/19 09:34 Dose: 100 mg Metronidazole (Flagyl -) 250 mg PO TID [facility] Last Admin: 05/10/19 06:44 Dose: 250 mg Polyethylene Glycol (Miralax (For Daily Use) -) 17 gm PO DAILY [facility] Last Admin: 05/09/19 09:33 Dose: Not Given Quetiapine Fumarate (Seroquel -) 25 mg PO HS [facility] Last Admin: 05/09/19 22:00 Dose: 25 mg Senna (Senna -) 1 tab PO HS [facility] Last Admin: 05/09/19 22:00 Dose: 1 tab Spironolactone (Aldactone -) 50 mg PO DAILY [facility] Last Admin: 05/09/19 09:32 Dose: 50 mg - Objective Vital Signs: Vital Signs Temperature 97.6 F 05/10/19 02:00 Pulse Rate 59 L 05/10/19 06:00 Respiratory Rate 20 05/10/19 06:00 Blood Pressure 115/65 05/10/19 06:00 O2 Sat by Pulse Oximetry (%) 95 05/09/19 21:00 Constitutional: Yes: No Distress, Calm Eyes: Yes: Conjunctiva Clear HENT: Yes: Atraumatic Cardiovascular: Yes: Regular Rate and Rhythm Respiratory: Yes: Regular, CTA Bilaterally Gastrointestinal: Yes: Normal Bowel Sounds, Soft Neurological: Yes: Alert Psychiatric: Yes: Alert Labs: CBC, BMP 05/10/19 06:10 05/10/19 06:10 INR, PTT INR 1.55 (0.83-1.09) H 05/05/19 05:49 Problem List - Problems (1) Abnormal liver function tests Assessment/Plan: >monitor LFTs daily >current LFTs showing uptren >spoke with patient daughter Kim Arana in regards to fathers liver condition, she states she does not know the name of the Liver Specialist her father saw at [facility] and the last time he was there was 3 years ago, instructed daughter to bring information from liver specialist from home for Hospitalist to view >Abdominal US shows hepatic cirrhosis, increased diffuse gallbladder wall thickening which is probably second to hepatic disease and less likely on basis of acute cholecystitis >HIDA scan filling of the gallbladder excludes acute cystic duct obstruction, findings of thickened gallbladder wall on US or likely due to chronic liver disease, heterogenous liver with delayed blood pool activity suggestive of hepatocellular disease/cirrhosis Code(s): R94.5 - ABNORMAL RESULTS OF LIVER FUNCTION STUDIES
[2019-05-10] MEDS: FAMOTIDINE 20 MG TABLET PO SCH ×2 (09:56→23:00)
[2019-05-10] MEDS: APIXABAN 2.5 MG TABLET PO SCH ×2 (09:56→23:00)
[2019-05-10] MEDS: DOCUSATE SODIUM 100 MG CAPSULE (FP) PO SCH (09:57)
[2019-05-10] MEDS: ISOSORBIDE MONONITRATE 30 MG TAB.SR.24H (FP) PO SCH (09:57)
[2019-05-10] MEDS: FUROSEMIDE 20 MG TABLET (FP) PO SCH (09:57)
[2019-05-10] MEDS: SPIRONOLACTONE 25 MG TABLET (FP) PO SCH (09:57)
[2019-05-10] MEDS: POLYETHYLENE GLYCOL 3350 119 GM BTL PO SCH (09:58)
--- NOTE | 2019-05-10 10:58 | PN ---
Progress Note (short form) - Note Progress Note: s: no chest pain, palps, dizziness, dyspnea Current Medications Generic Name Dose Route Start Last Admin Trade Name Niranjanq PRN Reason Stop Dose Admin Apixaban 2.5 mg 05/07/19 22:00 05/10/19 09:56 Eliquis - PO 2.5 mg BID [facility] Administration Docusate Sodium 100 mg 05/04/19 10:00 05/10/19 09:57 Colace - PO 100 mg DAILY [facility] Administration Famotidine 20 mg 05/03/19 22:00 05/10/19 09:56 Pepcid - PO 20 mg BID [facility] Administration Furosemide 20 mg 05/06/19 10:00 05/10/19 09:57 Lasix - PO 20 mg DAILY [facility] Administration Isosorbide Mononitrate 30 mg 05/04/19 10:00 05/10/19 09:57 Imdur - PO 30 mg DAILY [facility] Administration Lactulose 20 gm 05/08/19 22:00 05/09/19 22:00 Cephulac (Oral Use) PO 20 gm HS [facility] Administration Metoprolol Succinate 100 mg 05/04/19 10:00 05/10/19 09:57 Toprol Xl - PO 100 mg DAILY [facility] Administration Metronidazole 250 mg 05/08/19 15:00 05/10/19 06:44 Flagyl - PO 250 mg TID [facility] Administration Polyethylene Glycol 17 gm 05/04/19 10:00 05/10/19 09:58 Miralax (For Daily Use) - PO Not Given DAILY [facility] Quetiapine Fumarate 25 mg 05/04/19 22:00 05/09/19 22:00 Seroquel - PO 25 mg HS [facility] Administration Senna 1 tab 05/04/19 22:00 05/09/19 22:00 Senna - PO 1 tab HS [facility] Administration Spironolactone 50 mg 05/08/19 15:00 05/10/19 09:57 Aldactone - PO 50 mg DAILY [facility] Administration Vital Signs Period Temp Pulse Resp BP Sys/Rain Pulse Ox Last 24 Hr 97.4 F-99.3 F 59-62 18-20 103-149/52-69 95-96 Constitutional: Yes: No Distress, Calm Respiratory: Yes: CTA Bilaterally Gastrointestinal: Yes: Soft, Abdomen, Obese Cardiovascular: Yes: Regular Rate and Rhythm JVD: No Carotid Bruit: No PMI: Non-Displaced Heart Sounds: Yes: S1, S2 (RRR.) Edema: No Peripheral Pulses WNL: Yes no jaundice, diaphoresis not agitated CBC, BMP 05/10/19 06:10 05/10/19 06:10 Assessment/Plan IMP: Hep C, cirrhosis Thrombocytopenia History of Colon Cancer PAF s/p PPM Aflutter s/p ablation 2013 CAD s/p PCI Acute renal insufficiency Transaminitis Abdominal pain Atypical Chest pain NSVT REC: - trop neg x 4. no signs ACS. - episode NSVT - nl EF on echo 11/2018, replete lytes for K>4, Mg>2, cont metoprolol - s/p paracentesis, eliquis resumed - amlodipine dc'ed in setting of elevated LFTs per GI, monitor BP, cont metoprolol - aspirin dc'ed - no prior history of CAD, PCI per discussion with Dr. Phan and primary team - Outpatient stress test if not recently done - follow up with Dr. Phan at [facility].
[2019-05-10] MEDS ORDERED: PT OWN MED DRAWER 7, Y5N ONE ×2 (12:35→22:49)
[2019-05-10 13:06] VITALS: BMI 31.4
--- NOTE | 2019-05-10 13:39 | PN ---
Progress Note, Physician History of Present Illness: Pt seen and examined at bedside. He is awake and alert. he denies shortness of breath. - Current Medication List Current Medications: Active Medications Apixaban (Eliquis -) 2.5 mg PO BID [facility] Last Admin: 05/10/19 09:56 Dose: 2.5 mg Docusate Sodium (Colace -) 100 mg PO DAILY [facility] Last Admin: 05/10/19 09:57 Dose: 100 mg Famotidine (Pepcid -) 20 mg PO BID [facility] Last Admin: 05/10/19 09:56 Dose: 20 mg Furosemide (Lasix -) 20 mg PO DAILY [facility] Last Admin: 05/10/19 09:57 Dose: 20 mg Isosorbide Mononitrate (Imdur -) 30 mg PO DAILY [facility] Last Admin: 05/10/19 09:57 Dose: 30 mg Lactulose (Cephulac (Oral Use)) 20 gm PO [facility] Last Admin: 05/09/19 22:00 Dose: 20 gm Metoprolol Succinate (Toprol Xl -) 100 mg PO DAILY [facility] Last Admin: 05/10/19 09:57 Dose: 100 mg Metronidazole (Flagyl -) 250 mg PO TID [facility] Last Admin: 05/10/19 13:22 Dose: 250 mg Polyethylene Glycol (Miralax (For Daily Use) -) 17 gm PO DAILY [facility] Last Admin: 05/10/19 09:58 Dose: Not Given Quetiapine Fumarate (Seroquel -) 25 mg PO [facility] Last Admin: 05/09/19 22:00 Dose: 25 mg Senna (Senna -) 1 tab PO [facility] Last Admin: 05/09/19 22:00 Dose: 1 tab Spironolactone (Aldactone -) 50 mg PO DAILY [facility] Last Admin: 05/10/19 09:57 Dose: 50 mg - Objective Vital Signs: Vital Signs Temperature 97.6 F 05/10/19 02:00 Pulse Rate 61 05/10/19 08:20 Respiratory Rate 20 05/10/19 08:20 Blood Pressure 118/64 05/10/19 08:20 O2 Sat by Pulse Oximetry (%) 96 05/10/19 08:20 Constitutional: Yes: Calm Eyes: Yes: Conjunctiva Clear HENT: Yes: Atraumatic Neck: Yes: Supple Cardiovascular: Yes: S1, S2 Respiratory: Yes: CTA Bilaterally Gastrointestinal: Yes: Soft Genitourinary: Yes: WNL Edema: No Neurological: Yes: Oriented Psychiatric: Yes: Oriented Labs: CBC, BMP 05/10/19 06:10 05/10/19 06:10 INR, PTT INR 1.55 (0.83-1.09) H 05/05/19 05:49 Problem List - Problems (1) LORRAINE (acute kidney injury) Code(s): N17.9 - ACUTE KIDNEY FAILURE, UNSPECIFIED (2) Transaminitis Code(s): R74.0 - NONSPEC ELEV OF LEVELS OF TRANSAMNS & LACTIC ACID DEHYDRGNSE Assessment/Plan Current Medications Generic Name Dose Route Start Last Admin Trade Name Freq PRN Reason Stop Dose Admin Apixaban 2.5 mg 05/07/19 22:00 05/10/19 09:56 Eliquis - PO 2.5 mg BID [facility] Administration Docusate Sodium 100 mg 05/04/19 10:00 05/10/19 09:57 Colace - PO 100 mg DAILY [facility] Administration Famotidine 20 mg 05/03/19 22:00 05/10/19 09:56 Pepcid - PO 20 mg BID [facility] Administration Furosemide 20 mg 05/06/19 10:00 05/10/19 09:57 Lasix - PO 20 mg DAILY [facility] Administration Isosorbide Mononitrate 30 mg 05/04/19 10:00 05/10/19 09:57 Imdur - PO 30 mg DAILY [facility] Administration Lactulose 20 gm 05/08/19 22:00 05/09/19 22:00 Cephulac (Oral Use) PO 20 gm HS [facility] Administration Metoprolol Succinate 100 mg 05/04/19 10:00 05/10/19 09:57 Toprol Xl - PO 100 mg DAILY [facility] Administration Metronidazole 250 mg 05/08/19 15:00 05/10/19 13:22 Flagyl - PO 250 mg TID [facility] Administration Polyethylene Glycol 17 gm 05/04/19 10:00 05/10/19 09:58 Miralax (For Daily Use) - PO Not Given DAILY [facility] Quetiapine Fumarate 25 mg 05/04/19 22:00 05/09/19 22:00 Seroquel - PO 25 mg HS [facility] Administration Senna 1 tab 05/04/19 22:00 05/09/19 22:00 Senna - PO 1 tab HS [facility] Administration Spironolactone 50 mg 05/08/19 15:00 05/10/19 09:57 Aldactone - PO 50 mg DAILY [facility] Administration Impression 1. LORRAINE 2. UTI 3. cad 4. htn 5. a-fib 6. hep c 7. 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
[2019-05-10 14:07] LABS: BODY FLUID ALBUMIN 0.4 g/dL (Not Estab.)
--- NOTE | 2019-05-10 16:08 | PN ---
Physical Exam: SUBJECTIVE: Patient seen and examined NAEON Endorses improvement in abd distension OBJECTIVE: Vital Signs Period Temp Pulse Resp BP Sys/Rain Pulse Ox Last 24 Hr 97.4 F-99.3 F 58-62 18-20 112-149/52-69 95-96 GENERAL: The patient is awake, alert, oriented to name, city. No acute distress. HEAD: Normal with no signs of trauma. EYES: extraocular movements intact, mild sclera icteric, conjunctiva clear. No ptosis. ENT: Ears normal, nares patent, oropharynx clear without exudates, moist mucous membranes. NECK: Trachea midline, full range of motion, supple. LUNGS: Breath sounds equal, mild b/l crackles, no accessory muscle use. HEART: Regular rate and rhythm, S1, S2 without murmur, rub or gallop. ABDOMEN: Distended w/ midline surgical scar, shifting dullness, mild ascites. Soft, nontender, normoactive bowel sounds, no guarding, no rebound. EXTREMITIES: 2+ pulses, warm, well-perfused, no edema. NEUROLOGICAL: Normal speech, unsteady gait. PSYCH: Normal mood, normal affect. SKIN: Warm, dry, mild jaundice Laboratory Results - last 24 hr 05/07/19 05/10/19 05/10/19 14:00 06:10 06:10 WBC 6.8 RBC 5.50 Hgb 15.7 Hct 48.1 MCV 87.4 MCH 28.5 MCHC 32.6 RDW 15.9 Plt Count 77 L MPV 11.1 Sodium 135 L Potassium 4.8 Chloride 108 H Carbon Dioxide 20 L Anion Gap 7 L BUN 42.1 H Creatinine 1.6 H Est GFR (CKD-EPI)AfAm 46.14 Est GFR (CKD-EPI)NonAf 39.81 Random Glucose 130 H Calcium 9.9 Phosphorus 3.0 Magnesium 2.3 Total Bilirubin 5.0 H AST 153 H ALT 112 H Alkaline Phosphatase 393 H Total Protein 7.0 Albumin 3.2 L POC Fluid pH 8.0 Fluid Glucose 143 Fluid Total Protein 2.8 Fluid Albumin 0.4 Body Fluid LDH Source 97 Fluid Amylase 76 Fluid Triglycerides 875 Active Medications Generic Name Dose Route Start Last Admin Trade Name Freq PRN Reason Stop Dose Admin Apixaban 2.5 mg 05/07/19 22:00 05/10/19 09:56 Eliquis - PO 2.5 mg BID GLORY Administration Docusate Sodium 100 mg 05/04/19 10:00 05/10/19 09:57 Colace - PO 100 mg DAILY GLORY Administration Famotidine 20 mg 05/03/19 22:00 05/10/19 09:56 Pepcid - PO 20 mg BID GLORY Administration Isosorbide Mononitrate 30 mg 05/04/19 10:00 05/10/19 09:57 Imdur - PO 30 mg DAILY GLORY Administration Lactulose 20 gm 05/08/19 22:00 05/09/19 22:00 Cephulac (Oral Use) PO 20 gm HS GLORY Administration Metoprolol Succinate 100 mg 05/04/19 10:00 05/10/19 09:57 Toprol Xl - PO 100 mg DAILY GLORY Administration Metronidazole 250 mg 05/08/19 15:00 05/10/19 13:22 Flagyl - PO 250 mg TID GLORY Administration Polyethylene Glycol 17 gm 05/04/19 10:00 05/10/19 09:58 Miralax (For Daily Use) - PO Not Given DAILY GLORY Quetiapine Fumarate 25 mg 05/04/19 22:00 05/09/19 22:00 Seroquel - PO 25 mg HS GLORY Administration ASSESSMENT/PLAN: 79 M h/o ?CAD(?s/p stenting), aflutter s/p abalation + PPM, HTN, HLD, ?Hep c liver cirrhosis, colon Ca(s/p hemicolectomy), presented with abd pain w/a abdominal distension, also had complaint of burning pain w/ urination, chronic shoulder pain, chronic neck pain, chest pain. Complaints likely 2/2 to acutely decompensated liver disease. Elevated LFTs, bilirubin possibly 2/2 worsening liver function. HIDA normal. GI rec stopping meds that could cause increased LFTs(norvas, statin). On 05/08/19, started Flagyl, spironolactone, lactulose. Had paracentesis with ~800cc of cloudy fluid, given Albumin 50mg IVPB x1 post- procedure. Hep panel negative. Nephro wanted to hold diuretics, check U sodium and U Cr. # Chest pain > Troponin 0.03, 0.05, 0.05 > EKG: ventricular paced - cardio(Carol) consult: --rec stopping ASA if no h/o stent --pt is at-risk for bleeding --records pending from Dr. Polanco to [facility]ari ([phone] and [phone] ) --no h/o stent as per Dr Polanco --ASA dc'd, can also dc'd Eliquis --outpt stress test #? CAD s/p stent placement - no PA or stent as per family - records pending from Dr. Polanco ([phone]/ [phone]) --no h/o stent as per Dr Polanco --ASA dc'd, can also dc'd Eliquis - resume BB, hold statin in view of transaminitis, ARB, ASA, AC # Transaminitis --likely 2/2 decompensated cirrhosis --increasing in severity > Jaki B > Tbil 2.5, Dbil 1.6... 3.9, 4.4, 4.4, 5.0 > AST/ALT: 126/128, 119/124, 133/117, 119/100, 123/97, 153/112 > Ammonia 26.7 > Hep panel(05/04/19): neg for HepB, HepC > RUQ US(05/03/19): diffuse GB wall thickening, CBD 0.3cm, perihepatic ascites > HIDA(05/08/19): neg filling defect of GB - abx regimen: UTI tx and empiric SBP --ceftriaxone --day#4 --stopped on day 4 - IR paracentesis(diagnostic) --Eliquis held on 05/04/19 --s/p paracentesis w/ 810cc of cloudy fluid drained ---cytology pending: WBC 545 -GI consult(Kirby): --rec HIDA --normal --rec Surg consult --if rising LFTs, consider transfer to [facility](pt gets care there) -GI consult(Panda): --AFP level: 6.7 --No transfer to [facility] --stopped Norvas, stopped Statin -- Flagyl --Day 2 -- Spironolactone #GB wall thickening --possibly 2/2 cirrhosis, less likely cholecystitis > HIDA(05/08/19): normal # UTI --symptomatic > UA: nitrite +, bilirubin 2+ > UCX(05/03/19): NGTD - ceftriaxone --stopped on HD #4 # LORRAINE --possibly 2/2 hepatorenal vs urinary retention # Urinary retention > Cr(baseline ~1.0) 1.5, 1.4, 1.2, 1.6 > Renal US(05/03/19): no hydronephrosis, PVR ~330, Left renal cyst 2.7cm - Nephro([facility]) consult: --trend lytes --stopped diuretics(05/10/19) --fu Urine Cr, Urine Na - Uro([facility]) consult: --flomax 0.4mg QD --dc Wu in 48hs(~05/05/19) --voiding w/o issues # chronic dementia --baseline A&Ox1 > ammonia 26.7 - monitor for delirium vs hepatic encephalopathy # chronic dyslipidemia -hold statin in view of hepatic injury # HTN - restart home BP meds when appriopriate #DVT ppx: - Eliquis(held) for 05/07/19 IR paracentesis - restarted Eliquis #FEN: - diabetic/sodium diet #GI PPX: Famotidine #DISPO: - tele Visit type - Emergency Visit Emergency Visit: No - New Patient This patient is new to me today: No - Critical Care Critical Care patient: No ATTENDING PHYSICIAN STATEMENT I saw and evaluated the patient. I reviewed the resident's note and discussed the case with the resident. I agree with the resident's findings and plan as documented. SUBJECTIVE: OBJECTIVE: ASSESSMENT AND PLAN:
--- NOTE | 2019-05-10 20:47 | PN ---
Teaching Attending Note Name of Resident: Ganesh Kumar ATTENDING PHYSICIAN STATEMENT I saw and evaluated the patient. I reviewed the resident's note and discussed the case with the resident. I agree with the resident's findings and plan as documented. SUBJECTIVE: Patient continues o have mild abdominal pain on palpation. OBJECTIVE: Vital Signs Temperature 98.4 F 05/10/19 18:00 Pulse Rate 57 L 05/10/19 18:00 Respiratory Rate 20 05/10/19 18:00 Blood Pressure 85/43 L 05/10/19 18:00 O2 Sat by Pulse Oximetry (%) 96 05/10/19 08:20 GENERAL: The patient is awake, alert, and fully oriented, in no acute distress. HEAD: Normal with no signs of trauma. EYES: PERRL, extraocular movements intact, sclera anicteric, conjunctiva clear. ENT: Ears normal, oropharynx clear without exudates, moist mucous membranes. NECK: Trachea midline, full range of motion, supple. LUNGS: Breath sounds equal, clear to auscultation bilaterally, no wheezes, no crackles, no accessory muscle use. HEART: Regular rate and rhythm, S1, S2 without murmur, rub or gallop. ABDOMEN: Soft, mild tenderness midepigastric area, mild distention, + BS, no guarding, no rebound,+hepatomegaly, no masses. EXTREMITIES: 2+ pulses, warm, well-perfused, no edema. NEUROLOGICAL: Cranial nerves II through XII grossly intact. Normal speech, gait not observed. PSYCH: Normal mood, normal affect. SKIN: Warm, dry, normal turgor, no rashes or lesions noted CBCD WBC 6.8 K/mm3 (4.0-10.0) 05/10/19 06:10 RBC 5.50 M/mm3 (4.00-5.60) 05/10/19 06:10 Hgb 15.7 GM/dL (11.7-16.9) 05/10/19 06:10 Hct 48.1 % (35.4-49) 05/10/19 06:10 MCV 87.4 fl (80-96) 05/10/19 06:10 MCHC 32.6 g/dl (32.0-35.9) 05/10/19 06:10 RDW 15.9 % (11.9-15.9) 05/10/19 06:10 Plt Count 77 K/MM3 (134-434) L 05/10/19 06:10 MPV 11.1 fl (7.5-11.1) 05/10/19 06:10 CMP Sodium 135 mmol/L (136-145) L 05/10/19 06:10 Potassium 4.8 mmol/L (3.5-5.1) 05/10/19 06:10 Chloride 108 mmol/L (98-107) H 05/10/19 06:10 Carbon Dioxide 20 mmol/L (21-32) L 05/10/19 06:10 Anion Gap 7 MMOL/L (8-16) L 05/10/19 06:10 BUN 42.1 mg/dL (7-18) H 05/10/19 06:10 Creatinine 1.6 mg/dL (0.55-1.3) H 05/10/19 06:10 Random Glucose 130 mg/dL (74-106) H 05/10/19 06:10 Calcium 9.9 mg/dL (8.5-10.1) 05/10/19 06:10 Total Bilirubin 5.0 mg/dL (0.2-1) H 05/10/19 06:10 AST 153 U/L (15-37) H 05/10/19 06:10 ALT 112 U/L (13-61) H 05/10/19 06:10 Alkaline Phosphatase 393 U/L (45-117) H 05/10/19 06:10 Total Protein 7.0 g/dl (6.4-8.2) 05/10/19 06:10 Albumin 3.2 g/dl (3.4-5.0) L 05/10/19 06:10 CARDIAC ENZYMES Creatine Kinase 132 U/L (26-308) 05/03/19 13:00 Troponin I 0.05 ng/ml (0.00-0.05) 05/05/19 05:49 Current Medications Generic Name Dose Route Start Last Admin Trade Name Freq PRN Reason Stop Dose Admin Apixaban 2.5 mg 05/07/19 22:00 05/10/19 09:56 Eliquis - PO 2.5 mg BID GLORY Administration Docusate Sodium 100 mg 05/04/19 10:00 05/10/19 09:57 Colace - PO 100 mg DAILY GLORY Administration Famotidine 20 mg 05/03/19 22:00 05/10/19 09:56 Pepcid - PO 20 mg BID GLORY Administration Isosorbide Mononitrate 30 mg 05/04/19 10:00 05/10/19 09:57 Imdur - PO 30 mg DAILY GLORY Administration Lactulose 20 gm 05/08/19 22:00 05/09/19 22:00 Cephulac (Oral Use) PO 20 gm HS GLORY Administration Metoprolol Succinate 100 mg 05/04/19 10:00 05/10/19 09:57 Toprol Xl - PO 100 mg DAILY GLORY Administration Metronidazole 250 mg 05/08/19 15:00 05/10/19 13:22 Flagyl - PO 250 mg TID GLORY Administration Polyethylene Glycol 17 gm 05/04/19 10:00 05/10/19 09:58 Miralax (For Daily Use) - PO Not Given DAILY [facility] Quetiapine Fumarate 25 mg 05/04/19 22:00 05/09/19 22:00 Seroquel - PO 25 mg HS GLORY Administration Home Medications Medication Instructions Recorded Amlodipine Besylate [Norvasc -] 10 mg PO DAILY 11/22/18 Aspirin [Aspirin EC] 81 mg PO DAILY 11/22/18 Atorvastatin Ca [Lipitor] 20 mg PO HS 11/22/18 Ergocalciferol (Vitamin D2) 1.25 mg PO WEEKLY 11/22/18 [Vitamin D2] Furosemide [Lasix -] 20 mg PO DAILY 11/22/18 Isosorbide Mononitrate [Imdur -] 30 mg PO DAILY 11/22/18 Losartan Potassium [Cozaar -] 25 mg PO DAILY 11/22/18 Metoprolol Succinate [Toprol Xl] 100 mg PO DAILY 11/22/18 Quetiapine Fumarate [Seroquel -] 25 mg PO HS tablet 03/08/19 Apixaban [Eliquis] 2.5 mg PO BID 05/03/19 Microbiology 05/07/19 14:00 Ascites AFB Smear Concentration - Preliminary 05/07/19 14:00 Ascites Mycobacterial Culture - Preliminary 05/07/19 14:00 Ascites Gram Stain - Final 05/07/19 14:00 Ascites Body Fluid Culture - Preliminary NO AEROBIC GROWTH, 24 HRS 05/07/19 14:00 Ascites GABE Preparation - Preliminary 05/07/19 14:00 Ascites Fungal Culture - Preliminary 05/03/19 14:30 Urine - Urine Clean Catch Urine Culture - Final NO GROWTH OBTAINED Assessment and Plan: Patient is an 79yom with Pmhx of P AFib/A flutter s/p ablation 2013, PPM, diastolic CHF, colon cancer, HTN, Hep C , cirrhosis, Not sure of h/o CAD, Not sure of GI bleed in past who presented with Cp and confusion # s/p delirium, improved, back to his basis # Liver cirrhosis, worsening LFTS , lasix, spironoalctone is on hold, on lactulose ,s/p large volume paracentecis of 8 L. and 50 g of Albumin # Abd pain due to worsening lover cirrhosis , stop statin. # Dysuria. neg urine cx. No UTI # LORRAINE. due to urinary retention. monitor cr # H/o A fib /aflutter s/p ablation on eliquis 2.5 mg # H/o diastolic heart failure cont metoprolol, imdur # L renal cyst on US follow as an outpatient # NSVT , no further noted. # PT eval noted. Generalized weakness. discussed with dr. Mosqueda, his Meld score is 25
[2019-05-10] MEDS: QUEtiapine FUMARATE 25 MG TABLET PO SCH (23:00)
[2019-05-10] MEDS: LACTULOSE 20 GM/30 ML UDC (FOR ORAL USE ONLY) PO SCH (23:00)
[2019-05-11] MEDS: metroNIDAZOLE 250 MG TABLET PO SCH (06:05)
[2019-05-11 06:11] VITALS: TEMP 98.5
[2019-05-11 06:39] LABS: HEMATOCRIT 46.1 % (35.4-49); HEMOGLOBIN 15.2 GM/dL (11.7-16.9); MCH 28.7 pg (25.7-33.7); MCHC 33.1 g/dl (32.0-35.9); MEAN CELL VOLUME 86.6 fl (80-96); MEAN PLT VOLUME 11.1 fl (7.5-11.1); PLATELET COUNT 76 K/MM3 (134-434); RBC 5.32 M/mm3 (4.00-5.60); RDW 16.5 % (11.9-15.9); WHITE BLOOD COUNT 5.9 K/mm3 (4.0-10.0)
[2019-05-11 06:51] LABS: INR 1.95 (0.83-1.09); PROTHROMBIN TIME (PATIENT) 23.2 SEC (9.7-13.0)
[2019-05-11 07:09] LABS: ALBUMIN 3.2 g/dl (3.4-5.0); BILIRUBIN,TOTAL 4.8 mg/dL (0.2-1); BLOOD UREA NITROGEN 46.2 mg/dL (7-18); CALCIUM 10.2 mg/dL (8.5-10.1); CREATININE 1.8 mg/dL (0.55-1.3); MAGNESIUM 2.4 mg/dL (1.8-2.4); POTASSIUM 5.2 mmol/L (3.5-5.1); TOT PROT 6.9 g/dl (6.4-8.2)
[2019-05-11] MEDS ORDERED: ALBUTEROL SO4 HFA INHALER IH ONE ×2 (07:20→12:15)
[2019-05-11] MEDS ORDERED: DEXTROSE 50%-WATER - 25 GM/50 ML VIAL IVPUSH ONE (07:20)
[2019-05-11] MEDS ORDERED: INSULIN (NOVOLOG) ASPART 100 UNITS/ML 10ML VIAL SQ ONE (07:22)
[2019-05-11 08:00] VITALS: BP 130/71; PULSE 57
--- NOTE | 2019-05-11 08:28 | PN ---
Progress Note, Physician History of Present Illness: GI FOLLOW UP NOTE Patient examined and case discussed with Dr Mosqueda Patient is alert and awake, oriented x 2. Denies nausea, vomiting. Denies abdominal pain, nausea, vomiting, diarrhea, constipation, rectal bleeding, melena, blood in stool. Labs continue to show elevated LFTs with AST 179, ALT 120, Alk Phos 395. Also noted with elevated total bili 4.8. Patient is pending Abdominal US. - Current Medication List Current Medications: Active Medications Apixaban (Eliquis -) 2.5 mg PO BID [facility] Last Admin: 05/10/19 23:00 Dose: 2.5 mg Docusate Sodium (Colace -) 100 mg PO DAILY [facility] Last Admin: 05/10/19 09:57 Dose: 100 mg Famotidine (Pepcid -) 20 mg PO BID [facility] Last Admin: 05/10/19 23:00 Dose: 20 mg Isosorbide Mononitrate (Imdur -) 30 mg PO DAILY [facility] Last Admin: 05/10/19 09:57 Dose: 30 mg Lactulose (Cephulac (Oral Use)) 20 gm PO [facility] Last Admin: 05/10/19 23:00 Dose: 20 gm Metoprolol Succinate (Toprol Xl -) 100 mg PO DAILY [facility] Last Admin: 05/10/19 09:57 Dose: 100 mg Polyethylene Glycol (Miralax (For Daily Use) -) 17 gm PO DAILY [facility] Last Admin: 05/10/19 09:58 Dose: Not Given Quetiapine Fumarate (Seroquel -) 25 mg PO [facility] Last Admin: 05/10/19 23:00 Dose: 25 mg Rifaximin (Xifaxan -) 550 mg PO BID [facility] - Objective Vital Signs: Vital Signs Temperature 98.5 F 05/11/19 07:58 Pulse Rate 57 L 05/11/19 07:58 Respiratory Rate 18 05/11/19 08:00 Blood Pressure 130/71 05/11/19 07:58 O2 Sat by Pulse Oximetry (%) 97 05/11/19 08:00 Constitutional: Yes: No Distress, Calm Eyes: Yes: Conjunctiva Clear HENT: Yes: Atraumatic Cardiovascular: Yes: Regular Rate and Rhythm Respiratory: Yes: Regular, CTA Bilaterally Gastrointestinal: Yes: Normal Bowel Sounds, Soft Neurological: Yes: Alert, Confusion Psychiatric: Yes: Alert Labs: CBC, BMP 05/11/19 06:15 05/11/19 06:15 INR, PTT INR 1.95 (0.83-1.09) H 05/11/19 06:15 Problem List - Problems (1) Abnormal liver function tests Assessment/Plan: >monitor LFTs daily >most recent labs show AST 179, ALT 120, Alk Phos 395 >current LFTs showing uptren >Total bili 4.8 >continue xifaxin and lactulose >pending Abdominal US >spoke with patient daughter Kim Arana in regards to fathers liver condition, she states she does not know the name of the Liver Specialist her father saw at [facility] and the last time he was there was 3 years ago, instructed daughter to bring information from liver specialist from home for Hospitalist to view >Abdominal US shows hepatic cirrhosis, increased diffuse gallbladder wall thickening which is probably second to hepatic disease and less likely on basis of acute cholecystitis >HIDA scan filling of the gallbladder excludes acute cystic duct obstruction, findings of thickened gallbladder wall on US or likely due to chronic liver disease, heterogenous liver with delayed blood pool activity suggestive of hepatocellular disease/cirrhosis >Spoke with Dr Mosqueda in regards to patient condition and he feels clinically no need to transfer to tertiary center at present Code(s): R94.5 - ABNORMAL RESULTS OF LIVER FUNCTION STUDIES
[2019-05-11] MEDS ORDERED: PT OWN MED DRAWER 7, Y5N ONE (08:54)
[2019-05-11] MEDS: DOCUSATE SODIUM 100 MG CAPSULE (FP) PO SCH (09:46)
[2019-05-11] MEDS: APIXABAN 2.5 MG TABLET PO SCH (09:47)
[2019-05-11] MEDS: FAMOTIDINE 20 MG TABLET PO SCH (09:47)
[2019-05-11] MEDS: POLYETHYLENE GLYCOL 3350 119 GM BTL PO SCH (09:47)
[2019-05-11] MEDS: ISOSORBIDE MONONITRATE 30 MG TAB.SR.24H (FP) PO SCH (09:47)
[2019-05-11] MEDS ORDERED: RIFAXIMIN 550 MG TABLET (UD) PO SCH (10:00)
[2019-05-11] MEDS ORDERED: SODIUM CHLORIDE 250 ML IV STA (11:05)
[2019-05-11] MEDS ORDERED: ALBUMIN HUMAN 25% 12.5 GM/50 ML VIAL IVPB ONE (11:07)
[2019-05-11] MEDS ORDERED: ALBUMIN HUMAN 25% 12.5 GM/50 ML VIAL IVPB SCH (11:15)
--- NOTE | 2019-05-11 12:09 | DS ---
Physical Exam: SUBJECTIVE: Patient seen and examined OBJECTIVE: Vital Signs Period Temp Pulse Resp BP Sys/Rain Pulse Ox Last 24 Hr 98.0 F-98.5 F 56-63 18-20 85-138/43-76 97-97 PHYSICAL EXAM GENERAL: The patient is awake, alert, oriented to name, city. No acute distress. HEAD: Normal with no signs of trauma. EYES: extraocular movements intact, mild sclera icteric, conjunctiva clear. No ptosis. ENT: Ears normal, nares patent, oropharynx clear without exudates, moist mucous membranes. NECK: Trachea midline, full range of motion, supple. LUNGS: Breath sounds equal, mild b/l crackles, no accessory muscle use. HEART: Regular rate and rhythm, S1, S2 without murmur, rub or gallop. ABDOMEN: Distended w/ midline surgical scar, shifting dullness, mild ascites. Soft, nontender, normoactive bowel sounds, no guarding, no rebound. EXTREMITIES: 2+ pulses, warm, well-perfused, no edema. NEUROLOGICAL: Normal speech, unsteady gait. PSYCH: Normal mood, normal affect. SKIN: Warm, dry, mild jaundice LABS Laboratory Results - last 24 hr 05/07/19 05/10/19 05/10/19 14:00 15:00 15:00 WBC RBC Hgb Hct MCV MCH MCHC RDW Plt Count MPV PT with INR INR Sodium Potassium Chloride Carbon Dioxide Anion Gap BUN Creatinine Est GFR (CKD-EPI)AfAm Est GFR (CKD-EPI)NonAf Random Glucose Calcium Phosphorus Magnesium Total Bilirubin AST ALT Alkaline Phosphatase Ammonia Total Protein Albumin Ur Random Creatinine 217.0 H Ur Random Sodium 18 L Ur Random Potassium 38.0 Ur Random Chloride < 11 L Fluid Glucose 143 Fluid Total Protein 2.8 Fluid Albumin 0.4 Body Fluid LDH Source 97 Fluid Amylase 76 Fluid Triglycerides 875 05/11/19 05/11/19 05/11/19 06:15 06:15 06:15 WBC 5.9 RBC 5.32 Hgb 15.2 Hct 46.1 MCV 86.6 MCH 28.7 MCHC 33.1 RDW 16.5 H Plt Count 76 L MPV 11.1 PT with INR 23.20 H INR 1.95 H Sodium 137 Potassium 5.2 H Chloride 107 Carbon Dioxide 26 Anion Gap 5 L BUN 46.2 H Creatinine 1.8 H Est GFR (CKD-EPI)AfAm 40.02 Est GFR (CKD-EPI)NonAf 34.53 Random Glucose 94 Calcium 10.2 H Phosphorus 3.0 Magnesium 2.4 Total Bilirubin 4.8 H AST 179 H ALT 120 H Alkaline Phosphatase 395 H Ammonia Total Protein 6.9 Albumin 3.2 L Ur Random Creatinine Ur Random Sodium Ur Random Potassium Ur Random Chloride Fluid Glucose Fluid Total Protein Fluid Albumin Body Fluid LDH Source Fluid Amylase Fluid Triglycerides 05/11/19 06:15 WBC RBC Hgb Hct MCV MCH MCHC RDW Plt Count MPV PT with INR INR Sodium Potassium Chloride Carbon Dioxide Anion Gap BUN Creatinine Est GFR (CKD-EPI)AfAm Est GFR (CKD-EPI)NonAf Random Glucose Calcium Phosphorus Magnesium Total Bilirubin AST ALT Alkaline Phosphatase Ammonia 21.10 Total Protein Albumin Ur Random Creatinine Ur Random Sodium Ur Random Potassium Ur Random Chloride Fluid Glucose Fluid Total Protein Fluid Albumin Body Fluid LDH Source Fluid Amylase Fluid Triglycerides HOSPITAL COURSE: Date of Admission:05/03/19 Date of Discharge: 05/11/19 79 M h/o aflutter s/p abalation + PPM, HTN, HLD, Hep c liver cirrhosis, colon Ca(s/p hemicolectomy), presented with abd pain w/a abdominal distension, also had complaint of burning pain w/ urination, chronic shoulder pain, chronic neck pain, chest pain. Complaints likely 2/2 to acutely decompensated liver disease. Elevated LFTs, bilirubin possibly 2/2 worsening liver function. HIDA normal. Spoke to outpt cardio(Dr Polanco to confri ([phone] and [phone])) for history of Eliquis and ASA. No h/o stent as per Dr Polanco so ASA was stopped. GI rec stopping meds that could cause increased LFTs(norvas, statin). On 05/08/19, started Flagyl, spironolactone, lactulose. Had paracentesis with ~800cc of cloudy fluid, given Albumin 50mg IVPB x1 post-procedure. Hep panel negative. Nephro wanted to hold diuretics, check U sodium and U Cr. Urine lytes suggesting pre-renal. LFTs uptrended to 179/120, Tbil from 2.1 to 4.8. Ammonia 21.1. Cr 1.2 to 1.8. Increasing LFTs despite lactulose, rifaximin prompted concern for worsening liver decompensation w/ worsening hepatorenal syndrome. Transfer initated to [facility] for HLOC w/ Hepatology(Dr Whelan) service notified. Dr Alba(Medicine) accepted. Minutes to complete discharge: 35 Discharge Summary Problems reviewed: Yes Reason For Visit: ACUTE KIDNEY INJURY Current Active Problems LORRAINE (acute kidney injury) (Acute) Abdominal pain (Acute) Abnormal liver function tests (Acute) Transaminitis (Acute) - Instructions Diet, Activity, Other Instructions: Cardio: outpatient stress test Referrals: Ainsley Mccormick MD [Primary Care Provider] - - Home Medications Comprehensive Discharge Medication List: Ambulatory Orders Amlodipine Besylate [Norvasc -] 10 mg PO DAILY 11/22/18 Aspirin [Aspirin EC] 81 mg PO DAILY 11/22/18 Atorvastatin Ca [Lipitor] 20 mg PO HS 11/22/18 Ergocalciferol (Vitamin D2) [Vitamin D2] 1.25 mg PO WEEKLY 11/22/18 Furosemide [Lasix -] 20 mg PO DAILY 11/22/18 Isosorbide Mononitrate [Imdur -] 30 mg PO DAILY 11/22/18 Losartan Potassium [Cozaar -] 25 mg PO DAILY 11/22/18 Metoprolol Succinate [Toprol Xl] 100 mg PO DAILY 11/22/18 Quetiapine Fumarate [Seroquel -] 25 mg PO HS tablet 03/08/19 Apixaban [Eliquis] 2.5 mg PO BID 05/03/19 This patient is new to me today: No Emergency Visit: No Critical Care patient: No - Discharge Referral Referred to [facility] Med P.C.: No ATTENDING PHYSICIAN STATEMENT I saw and evaluated the patient. I reviewed the resident's note and discussed the case with the resident. I agree with the resident's findings and plan as documented. SUBJECTIVE: OBJECTIVE: ASSESSMENT AND PLAN:
[2019-05-11] MEDS ORDERED: SODIUM CHLORIDE 1,000 ML IV SCH (13:00)
--- NOTE | 2019-05-11 13:04 | PN ---
Progress Note, Physician History of Present Illness: Pt seen and examined at bedside. He is awake and appears comfortable. He does not feel much different than yesterday. - Objective Vital Signs: Vital Signs Temperature 98.5 F 05/11/19 07:58 Pulse Rate 57 L 05/11/19 07:58 Respiratory Rate 18 05/11/19 08:00 Blood Pressure 130/71 05/11/19 07:58 O2 Sat by Pulse Oximetry (%) 97 05/11/19 08:00 Constitutional: Yes: Calm Eyes: Yes: Conjunctiva Clear HENT: Yes: Atraumatic Neck: Yes: Supple Cardiovascular: Yes: S1, S2 Respiratory: Yes: CTA Bilaterally Gastrointestinal: Yes: Soft Genitourinary: Yes: WNL Musculoskeletal: Yes: WNL Edema: No Neurological: Yes: Oriented Labs: CBC, BMP 05/11/19 06:15 05/11/19 06:15 INR, PTT INR 1.95 (0.83-1.09) H 05/11/19 06:15 Problem List - Problems (1) LORRAINE (acute kidney injury) Code(s): N17.9 - ACUTE KIDNEY FAILURE, UNSPECIFIED (2) Transaminitis Code(s): R74.0 - NONSPEC ELEV OF LEVELS OF TRANSAMNS & LACTIC ACID DEHYDRGNSE Assessment/Plan Impression 1. LORRAINE 2. UTI 3. cad 4. htn 5. a-fib 6. hep c 7. colon cancer Plan - innersole maker is rising - potassium elevated - treat potassium medically - concern for HRS, give fluid/albumin challenge - discussed with medical team - pt has a large bowel movement after the am labs, repeat cmp to asses potassium - pt being transferred to tertiary care center - GI follow up - avoid nsaids
--- NOTE | 2019-05-11 13:43 | PN ---
Teaching Attending Note Name of Resident: Ganesh Kumar ATTENDING PHYSICIAN STATEMENT I saw and evaluated the patient. I reviewed the resident's note and discussed the case with the resident. I agree with the resident's findings and plan as documented. SUBJECTIVE: Patient continues to have mild abdominal pain, lying in bed mostly. Vital Signs Temperature 98.5 F 05/11/19 07:58 Pulse Rate 57 L 05/11/19 07:58 Respiratory Rate 18 05/11/19 08:00 Blood Pressure 130/71 05/11/19 07:58 O2 Sat by Pulse Oximetry (%) 97 05/11/19 08:00 GENERAL: The patient is awake, alert, and fully oriented, in no acute distress. HEAD: Normal with no signs of trauma. EYES: PERRL, extraocular movements intact, sclera anicteric, conjunctiva clear. ENT: Ears normal, oropharynx clear without exudates, moist mucous membranes. NECK: Trachea midline, full range of motion, supple. LUNGS: Breath sounds equal, clear to auscultation bilaterally, no wheezes, no crackles, no accessory muscle use. HEART: Regular rate and rhythm, S1, S2 without murmur, rub or gallop. ABDOMEN: Soft, mild tenderness midepigastric area, mild distention, + BS, no guarding, no rebound, +hepatomegaly, no masses. EXTREMITIES: 2+ pulses, warm, well-perfused, no edema. NEUROLOGICAL: Cranial nerves II through XII grossly intact. Normal speech, gait not observed. PSYCH: Normal mood, normal affect. SKIN: Warm, dry, normal turgor, no rashes or lesions noted CBCD WBC 5.9 K/mm3 (4.0-10.0) 05/11/19 06:15 RBC 5.32 M/mm3 (4.00-5.60) 05/11/19 06:15 Hgb 15.2 GM/dL (11.7-16.9) 05/11/19 06:15 Hct 46.1 % (35.4-49) 05/11/19 06:15 MCV 86.6 fl (80-96) 05/11/19 06:15 MCHC 33.1 g/dl (32.0-35.9) 05/11/19 06:15 RDW 16.5 % (11.9-15.9) H 05/11/19 06:15 Plt Count 76 K/MM3 (134-434) L 05/11/19 06:15 MPV 11.1 fl (7.5-11.1) 05/11/19 06:15 CMP Sodium 137 mmol/L (136-145) 05/11/19 06:15 Potassium 5.2 mmol/L (3.5-5.1) H 05/11/19 06:15 Chloride 107 mmol/L (98-107) 05/11/19 06:15 Carbon Dioxide 26 mmol/L (21-32) 05/11/19 06:15 Anion Gap 5 MMOL/L (8-16) L 05/11/19 06:15 BUN 46.2 mg/dL (7-18) H 05/11/19 06:15 Creatinine 1.8 mg/dL (0.55-1.3) H 05/11/19 06:15 Random Glucose 94 mg/dL (74-106) 05/11/19 06:15 Calcium 10.2 mg/dL (8.5-10.1) H 05/11/19 06:15 Total Bilirubin 4.8 mg/dL (0.2-1) H 05/11/19 06:15 AST 179 U/L (15-37) H 05/11/19 06:15 ALT 120 U/L (13-61) H 05/11/19 06:15 Alkaline Phosphatase 395 U/L (45-117) H 05/11/19 06:15 Total Protein 6.9 g/dl (6.4-8.2) 05/11/19 06:15 Albumin 3.2 g/dl (3.4-5.0) L 05/11/19 06:15 CARDIAC ENZYMES Creatine Kinase 132 U/L (26-308) 05/03/19 13:00 Troponin I 0.05 ng/ml (0.00-0.05) 05/05/19 05:49 Current Medications Generic Name Dose Route Start Last Admin Trade Name Freq PRN Reason Stop Dose Admin Apixaban 2.5 mg 05/07/19 22:00 05/10/19 09:56 Eliquis - PO 2.5 mg BID GLORY Administration Docusate Sodium 100 mg 05/04/19 10:00 05/10/19 09:57 Colace - PO 100 mg DAILY GLORY Administration Famotidine 20 mg 05/03/19 22:00 05/10/19 09:56 Pepcid - PO 20 mg BID GLORY Administration Isosorbide Mononitrate 30 mg 05/04/19 10:00 05/10/19 09:57 Imdur - PO 30 mg DAILY GLORY Administration Lactulose 20 gm 05/08/19 22:00 05/09/19 22:00 Cephulac (Oral Use) PO 20 gm HS GLORY Administration Metoprolol Succinate 100 mg 05/04/19 10:00 05/10/19 09:57 Toprol Xl - PO 100 mg DAILY GLORY Administration Metronidazole 250 mg 05/08/19 15:00 05/10/19 13:22 Flagyl - PO 250 mg TID GLORY Administration Polyethylene Glycol 17 gm 05/04/19 10:00 05/10/19 09:58 Miralax (For Daily Use) - PO Not Given DAILY [facility] Quetiapine Fumarate 25 mg 05/04/19 22:00 05/09/19 22:00 Seroquel - PO 25 mg HS GLORY Administration Home Medications Medication Instructions Recorded Amlodipine Besylate [Norvasc -] 10 mg PO DAILY 11/22/18 Aspirin [Aspirin EC] 81 mg PO DAILY 11/22/18 Atorvastatin Ca [Lipitor] 20 mg PO HS 11/22/18 Ergocalciferol (Vitamin D2) 1.25 mg PO WEEKLY 11/22/18 [Vitamin D2] Furosemide [Lasix -] 20 mg PO DAILY 11/22/18 Isosorbide Mononitrate [Imdur -] 30 mg PO DAILY 11/22/18 Losartan Potassium [Cozaar -] 25 mg PO DAILY 11/22/18 Metoprolol Succinate [Toprol Xl] 100 mg PO DAILY 11/22/18 Quetiapine Fumarate [Seroquel -] 25 mg PO HS tablet 03/08/19 Apixaban [Eliquis] 2.5 mg PO BID 05/03/19 Microbiology 05/07/19 14:00 Ascites AFB Smear Concentration - Preliminary 05/07/19 14:00 Ascites Mycobacterial Culture - Preliminary 05/07/19 14:00 Ascites Gram Stain - Final 05/07/19 14:00 Ascites Body Fluid Culture - Preliminary NO AEROBIC GROWTH, 24 HRS 05/07/19 14:00 Ascites GABE Preparation - Preliminary 05/07/19 14:00 Ascites Fungal Culture - Preliminary 05/03/19 14:30 Urine - Urine Clean Catch Urine Culture - Final NO GROWTH OBTAINED Assessment and Plan: Patient is an 79yom with Pmhx of P AFib/A flutter s/p ablation 2013, PPM, diastolic CHF, colon cancer, HTN, Hep C , cirrhosis, Not sure of h/o CAD, Not sure of GI bleed in past who presented with Cp and confusion # LORARINE. due to urinary retention. will continue to monitor cr, elevation of creatinine, concern for HRS, as per nephro:to give fluid/albumin challenge # s/p delirium, improved, back to his basis # Liver cirrhosis, worsening LFTS , lasix, spironololactone is on hold, on lactulose ,s/p large volume paracentecis of 8 L. and 50 g of Albumin # Abd pain due to worsening lover cirrhosis , stop statin. # Dysuria. neg urine cx. No UTI # H/o A fib /aflutter s/p ablation on eliquis 2.5 mg , discussed with Panda for possible holding off on Eliquis his INR is 1.97 # H/o diastolic heart failure cont metoprolol, imdur # L renal cyst on US follow as an outpatient # NSVT , no further noted. # PT eval noted. Generalized weakness. discussed with dr. Mosqueda in details, his Meld score is 25. discussed with the family for transfer to [facility]. since worsening LFts, will transfer to [facility] tertiary care center.
== END 2019-05-11 12:43 | disposition short-term general hospital (02) | DRG 442 ==
LOC: JER 12:03 → SUPCPDRO 12:03 → JERBED 18:13 → J4W 20:26
PROVIDERS: ATTEND Internal Medicine
PROC: 0W9G3ZX Drainage of Peritoneal Cavity, Percutaneous Approach, Diagnostic (ICD-10-PCS; principal; 2019-05-07)
DX: K72.90 Hepatic failure, unspecified without coma (principal); N17.9 Acute kidney failure, unspecified; N39.0 Urinary tract infection, site not specified; R18.8 Other ascites; I48.92 Unspecified atrial flutter; I47.2 Ventricular tachycardia; I50.30 Unspecified diastolic (congestive) heart failure; K74.60 Unspecified cirrhosis of liver; I11.0 Hypertensive heart disease with heart failure; I10 Essential (primary) hypertension; M54.9 Dorsalgia, unspecified; M25.519 Pain in unspecified shoulder; I48.91 Unspecified atrial fibrillation; M54.2 Cervicalgia; I25.10 Atherosclerotic heart disease of native coronary artery without angina pectoris; N40.1 Benign prostatic hyperplasia with lower urinary tract symptoms; F03.90 Unspecified dementia, unspecified severity, without behavioral disturbance, psychotic disturbance, mood disturbance, and anxiety; R33.8 Other retention of urine; R94.5 Abnormal results of liver function studies; R41.0 Disorientation, unspecified; E66.9 Obesity, unspecified; Z68.31 Body mass index [BMI] 31.0-31.9, adult; N28.1 Cyst of kidney, acquired; M06.9 Rheumatoid arthritis, unspecified; D69.6 Thrombocytopenia, unspecified; Z86.73 Personal history of transient ischemic attack (TIA), and cerebral infarction without residual deficits; Z95.810 Presence of automatic (implantable) cardiac defibrillator; Z85.038 Personal history of other malignant neoplasm of large intestine; Z95.0 Presence of cardiac pacemaker; Z95.5 Presence of coronary angioplasty implant and graft
CPT/HCPCS: 36415; 71045-TC-FY; 76705-TC; 76775-TC; 76856-TC; 76942-TC; 78226-TC; 80048; 80053; 80061; 80076; 80307; 81003; 82042; 82105; 82140; 82150; 82248; 82436; 82465; 82550; 82565; 82607; 82945; 83036; 83615; 83690; 83721; 83735; 83986; 84100; 84133; 84157; 84300; 84443; 84478; 84484; 85025; 85027; 85610; 86593; 86704; 86705; 86706; 86707; 87070; 87075; 87086; 87102; 87116; 87205; 87206; 87210; 87522; 87902; 88108; 88305-TC; 93005; 93010; 97116-GP; 97162-GP; 99285-25; A9537; J0131; J1644; P9047